=== PATIENT | male | born 1975 | race Caucasian/White ===

== ENCOUNTER 2019-07-31 20:51 | Emergency (ER) | payer SELFPAY ==
[2019-07-31 21:01] VITALS: BP 160/98; PULSE 84; RESP 16; TEMP 36.8; BMI 27.8
--- NOTE | 2019-07-31 21:17 | W.ED.NECK ---
HPI - Neck Pain/Injury General: Chief Complaint: Neck Pain/Injury Stated Complaint: neck pain Time Seen by Provider: 07/31/19 21:17 History of Present Illness: HPI Narrative: Patient is a 43-year-old male who comes to the ED with neck pain. Pain started today and increasingly got worse. He describes the pain predominantly on the left posterior side of neck and states it feels like it is muscular pain. Patient says he has had this happen in the past and it usually correlates to him overworking himself. 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 He states a couple days ago he was holding a piece of equipment up over his head for an extended amount of time. Patient denies any injury or trauma to cause symptoms. Denies any fever, chills, nausea, vomiting, chest pain, shortness of breath, neurological symptoms, abdominal pain, bladder or bowel symptoms. Associated symptoms: Denies headache(s) or nausea Review of Systems Const: Denies: fever, chills or fatigue Eyes: Denies: change in vision or eye discomfort ENMT: Denies: throat pain, painful swallowing, nasal discharge or nasal congestion Card: Denies: chest pain, palpitations, edema, swelling of feet/ankles, shortness of breath on exertion or shortness of breath when lying down Resp: Denies: shortness of breath, productive cough or non-productive cough GI: Denies: abdominal pain, nausea, vomiting, diarrhea, constipation or blood in stool : Denies: flank pain, difficulty urinating, painful urination or blood in urine Musc: Reports: neck pain, joint swelling (swelling in right hand) and limited range of motion (neck-hurts to turn head to the right. ); Denies: back pain or extremity swelling Skin/Breast: Denies: rash or new lesion Neuro: Denies: headache, numbness in extremities or weakness in extremities PFSH ED PFSH: Social History Smoking and tobacco status: current every day smoker Physical Exam Const: COMMON NORMALS: no apparent distress, oriented x3 and alert GENERAL APPEARANCE: cooperative; not in distress HENMT: COMMON NORMALS: normocephalic HEAD & SCALP: normocephalic MOUTH: oral and palatal mucosa normal THROAT: posterior oropharynx normal and uvula midline Eye: COMMON NORMALS: PERRL PUPIL: Yes PERRL Neck/C-Spine: COMMON NORMALS: supple GENERAL: Yes normal visual inspection and Yes tender (muscular tenderness on left posterior area of neck-evolving upper trapezius muscles and sternocleidomastoid) Resp: COMMON NORMALS: normal respiratory effort, no retractions, no use of accessory muscles and clear to auscultation bilaterally AUSCULTATION: clear to auscultation bilaterally Cardio: COMMON NORMALS: regular rate, regular rhythm, S1 normal heart sound, S2 normal heart sound, no gallops, no clicks, no murmurs and peripheral pulses 2+ throughout RATE: regular rate RHYTHM: regular rhythm HEART SOUNDS: S1 normal and S2 normal PERIPHERAL PULSES: pulses 2+ throughout GI: COMMON NORMALS: normal to inspection, nondistended, normoactive bowel sounds, soft to palpation, non-tender and no masses PALPATION: Yes soft : COMMON NORMALS: Yes no CVA tenderness BLADDER/KIDNEY EXAM: Yes no CVA tenderness Back/Pelvis: COMMON NORMALS: no CVA tenderness Extremity: COMMON NORMALS: no pedal edema GENERAL: Yes normal exam except as noted RIGHT UPPER EXTREMITY: Yes hand & digits Right hand and digits: Yes inspection (mild swelling of right hand. no erythema) Neuro: COMMON NORMALS: oriented x3 and moves all extremities SENSORIUM/ORIENTATION: Yes alert Skin: COMMON NORMALS: no rashes or lesions noted GENERAL SKIN EXAM: no rashes or lesions noted and dry skin Course Vital Signs: Vital signs: Vital Signs Temperature 98.3 F 07/31/19 21:01 Pulse Rate 76 07/31/19 22:39 Respiratory Rate 16 07/31/19 22:39 Blood Pressure 146/90 07/31/19 22:39 Pulse Oximetry 98 07/31/19 22:39 MDM - Neck Pain/Injury MDM Narrative: Medical decision making narrative: Patient is a 43-year-old male who comes to the ED with neck pain. Patient was recently working and had to hold some equipment over his head for an extended amount of time. Neck pain started after this. Physical exam showed muscular tenderness on the posterior left region of the cervical spine. Patient was given Toradol and Norflex while here in the ED. Patient was discharged with neck muscle strain and sent home with a prescription for muscle relaxer. Apply ice or heat to help with neck pain. Patient was told to follow-up with PCP in 7 days for reevaluation. Patient understood and agreed with plan. Discharge Plan Discharge Patient Disposition: Home, Self-Care Clinical Impression: Neck muscle strain Qualifiers: Encounter type: initial encounter Qualified Code(s): S16.1XXA - Strain of muscle, fascia and tendon at neck level, initial encounter Condition: Stable Prescriptions: New Robaxin-750 750 mg tablet 750 mg PO Q8H Qty: 20 RF: 0 No Action No Known Home Medications RF: 0 Discharge Orders: Discharge Order (Routine); Ordered 07/31/19 Ordered By: Vern Harrington Discharge Diet: Regular Discharge Activity: Increase activity as tolerated Patient Instructions: Cervical Sprain (ED), Neck Exercises (GEN) Activity Restrictions/Additional Instructions: Follow-up with your PCP in 7 to 10 days for reevaluation. Take Aleve or ibuprofen for pain and inflammation. Apply ice or heat on sore muscles to help with symptoms. Sending you home with a prescription for a muscle relaxer. Take muscle relaxer at night before bed. Muscle relaxer can cause some drowsiness so use with caution. Discharge Date/Time: 07/31/19 22:46 Coding Level of Care Code ED Dental Laboratory Supervisor for Keisha Fwd Exam Comprehensive
[2019-07-31] MEDS: ketorolac 30 mg/mL INJ IM (21:52)
[2019-07-31] MEDS: orphenadrine 30 mg/mL Inj 2 mL 60 MG IM (21:52)
[2019-07-31 22:39] VITALS: BP 146/90; PULSE 76; RESP 16; O2SAT 98
--- NOTE | 2019-07-31 22:45 | PC.NURSE ---
I agree with this assessment
== END 2019-07-31 22:46 | disposition home or self-care (01) ==
LOC: ER 22:23
PROVIDERS: Emergency Provider Physician Assistant
DX: S16.1XXA Strain of muscle, fascia and tendon at neck level, initial encounter (principal); X50.9XXA Other and unspecified overexertion or strenuous movements or postures, initial encounter; F17.210 Nicotine dependence, cigarettes, uncomplicated
CPT/HCPCS: 12345; 96372; 99281; 99283; J1885; J2360

== ENCOUNTER 2019-12-03 23:18 | Emergency (ER) | payer SELFPAY ==
[2019-12-03 23:22] VITALS: BP 126/76; PULSE 59; RESP 16; TEMP 36.5; O2SAT 97
--- NOTE | 2019-12-03 23:48 | ED_ITS ---
HPI - Extremity Problem General: Chief complaint: Extremity Injury, Upper Stated complaint: shoulder pain/ says they cant move it Time Seen by Provider: 12/03/19 23:48 Source: patient Mode of arrival: ambulatory Limitations: no limitations Review of Systems General: Reports: 10 or more systems reviewed and unremarkable except in HPI and below Musc: Reports: joint pain (left shoulder) PFSH ED PFSH: Social History Smoking and tobacco status: current every day smoker Physical Exam Const: COMMON NORMALS: no acute distress and patient oriented x3 GENERAL APPEARANCE: cooperative HENMT: COMMON NORMALS: normocephalic and Normal external nose present HEAD & SCALP: normal to inspection and normocephalic NOSE: Normal external nose present MOUTH: Normal oral and palatal mucosa present THROAT: posterior oropharynx normal Eye: GENERAL EYE: appearance normal, both eyes and all related structures Neck/C-Spine: COMMON NORMALS: full ROM Lymph: LYMPHATIC: no lymphadenopathy noted Chest: COMMONS NORMALS: normal inspection of the chest Resp: COMMON NORMALS: normal respiratory effort EFFORT & INSPECTION: Yes able to speak in complete sentences Cardio: COMMON NORMALS: regular rate and regular rhythm RATE: regular rate RHYTHM: regular rhythm GI: COMMON NORMALS: non-tender Back/Pelvis: COMMON NORMALS: thoracic and lumbar spine normal to inspection Extremity: NARRATIVE EXTREMITY EXAM: Left anterior shoulder tenderness to palpation. Decreased flexion extension of the shoulder. Distal pulses are intact. No obvious swelling to the extremity. Neuro: COMMON NORMALS: patient oriented x3 and moves all extremities Psych: COMMON NORMALS: mental status grossly normal and cooperative Skin: COMMON NORMALS: no rashes or lesions noted GENERAL SKIN EXAM: no rashes or lesions noted Procedures Joint Aspiration/Injection Joint Asp./Inject. 1: Side of body: left Joint Aspirated: shoulder Skin Prep: Chlorhexidine Local Anesthetic: lidocaine 1% Amount of anesthesia used (mL): 2 Needle Size Used: 22G Medication Injected, if any: Triamcinolone Acetate Amount of medication injected (mL): 40 Patient Tolerated Procedure: well Complications: none Course Vital Signs: Vital signs: Vital Signs Temperature 97.7 F 12/03/19 23:22 Pulse Rate 59 L 12/03/19 23:22 Respiratory Rate 16 12/03/19 23:22 Blood Pressure 126/76 12/03/19 23:22 Pulse Oximetry 97 12/03/19 23:22 MDM - Extremity (Nontraumatic) MDM Narrative: Medical decision making narrative: Patient comes in with left shoulder anterior tenderness. Patient reports pulling on something at work and straining hard with his left arm. Since then patient has had increased pain over the last 2 days to his anterior shoulder. Distal pulses are intact. Respirations are even lungs are clear to auscultation. Skin is warm and dry. Differential diagnosis includes but not limited to bursitis, shoulder impingement syndrome, biceps tendinitis. Reviewed exam with patient with recommendations for treatment with a 40 mg injection of Solu-Medrol and lidocaine into the biceps proximal insertion tendon. Recommend medication for pain and inflammation. Patient reported understanding and agreed to plan. Patient was given a injection into the biceps tendon with good results and some relief of pain. Discharge Plan Discharge Patient Disposition: Home Clinical Impression: Shoulder impingement syndrome Qualifiers: Laterality: left Qualified Code(s): M75.42 - Impingement syndrome of left shoulder Condition: Stable Prescriptions: New diclofenac potassium 50 mg tablet 50 mg PO Q8H PRN (Reason: pain) Qty: 30 RF: 0 hydrocodone-acetaminophen 5-325 mg tablet 1 tab PO TID PRN (Reason: pain (scale score 7-10)) Qty: 7 RF: 0 No Action Robaxin-750 750 mg tablet 750 mg PO Q8H Qty: 20 RF: 0 Discharge Orders: Discharge Order (Routine); Ordered 12/04/19 Ordered By: Ernesto Bledsoe Discharge Diet: Usual diet Discharge Activity: Increase activity as tolerated Patient Instructions: Shoulder Sprain (ED) Activity Restrictions/Additional Instructions: Activity as tolerated. Gentle range of motion. Ice alternating with heat for further pain relief. Drink plenty of water with medication. Follow-up with primary care for further treatment and evaluation. Coding Level of Care Code ED [employer] Power Plant Manager for Keisha Fwd Exam Comprehensive
[2019-12-04] MEDS: HYDROcodone-acetaminophen 7.5-325 mg Tablet 1 TAB PO (00:08)
[2019-12-04] MEDS: naproxen 500 mg Tablet PO (00:09)
[2019-12-04] MEDS: lidocaine 1% INJ 20 mL INJECTION (00:11)
[2019-12-04 00:19] VITALS: BP 140/79; PULSE 75; O2SAT 98
== END 2019-12-04 00:19 | disposition home or self-care (01) ==
PROVIDERS: Emergency Provider Nurse Practitioner Family
DX: M75.42 Impingement syndrome of left shoulder (principal); F17.210 Nicotine dependence, cigarettes, uncomplicated
CPT/HCPCS: 12345; 20610; 96372; 99281; 99283; J2920

== ENCOUNTER 2020-01-27 07:34 | Emergency (ER) | payer SELFPAY ==
[2020-01-27 07:41] VITALS: BP 142/101; PULSE 83; RESP 18; TEMP 36.5; O2SAT 97; BMI 25.1
[2020-01-27 07:45] VITALS: BP 142/101; PULSE 81; RESP 18; O2SAT 97
--- NOTE | 2020-01-27 07:51 | XR_ITS ---
WS: [id number] Exam: XR knee RT 3V* [id number] Date/Time of Exam: 01/27/2020 8:05 AM Reason For Exam: right knee pain - 1 with standing view please Comparison 05/09/2018. No fracture or dislocation. Joint compartments are relatively well maintained. No joint effusion. Nor mal soft tissues. XR/XR knee RT 3V* [id number] IMPRESSION: 1. No acute fracture or other significant finding. No change.
--- NOTE | 2020-01-27 07:54 | ED_ITS ---
HPI - Extremity Problem General: Chief complaint: Extremity Injury, Lower Stated complaint: right knee pain Time Seen by Provider: 01/27/20 07:51 History of Present Illness: HPI Narrative: 44-year-old male presents to the emergency department with 4-day onset of right knee pain. Reports onset occurred at work, he denies injury or fall. 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 Reports pain was 13/10 on Friday. States pain has improved today. He reports pain is located on the medial side of the knee. He reports swelling, denies fever chills or redness to the area. Patient requests joint injection for the pain. MD Complaint: joint swelling (rt) and joint pain (rt) Onset (ago): day(s) (4) Pain Consistency: intermittent Location: right, lower extremity and knee Severity scale (1-10): 4 Quality: stabbing and aching Radiation: none Relieving factors: rest Exacerbating factors: weight bearing and walking Associated symptoms: Reports no associated symptoms; Deny chest pain, fever(s) or rash Review of Systems General: Reports: 10 or more systems reviewed and unremarkable except in HPI and below Const: Denies: fever(s), chills or diaphoresis Eyes: Denies: blurry vision or eye redness ENMT: Denies: throat pain, dental pain or disequilibrium Card: Denies: chest pain, palpitations or irregular heart rhythm Resp: Denies: dyspnea, productive cough, non-productive cough or wheezing GI: Denies: abdominal pain, nausea or vomiting : Denies: dysuria Musc: Reports: joint pain (right knee); Denies: neck pain or back pain Skin/Breast: Denies: rash or pruritus Neuro: Denies: headache(s), weakness in extremities or behavioral changes Psych: Denies: anxiety or depression Steven/Lymph: Denies: easy bruising PFSH ED PFSH: Social History (Updated 01/27/20 @ 07:47 by Gurpreet Cowart RN) Smoking and tobacco status: current every day smoker Alcohol intake: never Substance/Drug Use: current Substance/Drug use frequency: Special occassions/opportunity only Substance/Drug use type: Marijuana Physical Exam Const: COMMON NORMALS: no acute distress, patient oriented x3, healthy appearing and alert GENERAL APPEARANCE: cooperative, comfortable and well hydrated HENMT: COMMON NORMALS: normocephalic, Normal external nose present and moist oral mucous membranes HEAD & SCALP: normocephalic NOSE: Normal external nose present Eye: COMMON NORMALS: Equal, round and reactive pupils present and EOMs intact bilaterally GENERAL EYE: appearance normal, both eyes and all related structures PUPIL: Yes Equal, round and reactive pupils present Neck/C-Spine: COMMON NORMALS: full ROM and no lymphadenopathy GENERAL: Yes normal visual inspection and Yes trachea midline CERVICAL SPINE: Yes cervical ROM normal Lymph: LYMPHATIC: no lymphadenopathy noted Chest: COMMONS NORMALS: normal inspection of the chest Resp: COMMON NORMALS: normal respiratory effort and clear to auscultation bilaterally AUSCULTATION: clear to auscultation bilaterally Cardio: COMMON NORMALS: regular rhythm, S1 normal heart sound present, S2 normal heart sound present and Peripheral pulses 2+ throughout RHYTHM: regular rhythm HEART SOUNDS: S1 normal heart sound present and S2 normal heart sound present PERIPHERAL PULSES: Peripheral pulses 2+ throughout GI: COMMON NORMALS: Soft to palpation and non-tender INSPECTION: Yes normal to inspection PALPATION: Yes Soft to palpation : COMMON NORMALS: Yes no CVA tenderness BLADDER/KIDNEY EXAM: Yes no CVA tenderness Back/Pelvis: COMMON NORMALS: no CVA tenderness and thoracic and lumbar spine normal to inspection Extremity: COMMON NORMALS: normal to inspection and capillary refill normal GENERAL: Yes normal exam except as noted RIGHT LOWER EXTREMITY: Yes knee joint Right knee: Yes inspection (right knee with edema), Yes palpation (pain medially), Yes ROM (full flexion and extension), Yes neurovascular exam (distally intact) and Yes special tests Right knee special tests: Patellar tilt test: Negative, Anterior Carlos test: Negative, Posterior Carlos test: Negative, Valgus stress test: Positive and Varus stress test: Negative Neuro: COMMON NORMALS: patient oriented x3 and no focal motor deficits SENSORIUM/ORIENTATION: Yes alert Psych: COMMON NORMALS: mental status grossly normal, Normal thought process present and cooperative ACTIVITY/MOTOR BEHAVIOR: Yes appropriate eye contact THOUGHT PROCESS: Normal thought process present Skin: COMMON NORMALS: no rashes or lesions noted and turgor normal GENERAL SKIN EXAM: no rashes or lesions noted and turgor normal Course Vital Signs: Vital signs: Vital Signs Temperature 98.7 F 01/27/20 08:51 Pulse Rate 80 01/27/20 08:51 Respiratory Rate 16 01/27/20 08:51 Blood Pressure 137/82 01/27/20 08:51 Pulse Oximetry 96 01/27/20 08:51 MDM - Extremity (Nontraumatic) Imaging Data^: Xray Ortho: Radiologist's impression: [address] [place] [address] XRay Report Signed Patient: Jackson Lea Unit #: [id number] : [id number] Age/Sex: 44 / M ADM Date: 01/27/20 Loc: ER Room/Bed: Attending Dr: Ordering Provider/Ordering MD: Isabella Serrano Date of Service: 01/27/20 Procedure(s): XR knee RT 3V* [id number] Accession Number(s): [id number] Report Number: [id number] WS: [id number] Exam: XR knee RT 3V* [id number] Date/Time of Exam: 01/27/2020 8:05 AM Reason For Exam: right knee pain - 1 with standing view please Comparison 05/09/2018. No fracture or dislocation. Joint compartments are relatively well maintained. No joint effusion. Normal soft tissues. XR/XR knee RT 3V* [id number] IMPRESSION: 1. No acute fracture or other significant finding. No change. Dictated By: Kunal Veliz DO Signed By: Kunal Veliz DO Signed Date/Time: 01/27/20905 DD/ 4 Discharge Plan Discharge Patient Disposition: Home Clinical Impression: Knee pain, right Qualifiers: Chronicity: acute Qualified Code(s): M25.561 - Pain in right knee Meniscus degeneration Qualifiers: Laterality: right Qualified Code(s): M23.306 - Other meniscus derangements, unspecified meniscus, right knee Condition: Stable Prescriptions: New naproxen 500 mg tablet 500 mg PO BID PRN (Reason: pain) Qty: 20 RF: 0 Discharge Orders: Discharge Order (Routine); Ordered 01/27/20 Ordered By: Isabella Serrano Discharge Diet: Usual diet Discharge Activity: Limit activity as instructed Patient Instructions: Knee Pain (ED), Knee Exercises (GEN), Torn Meniscus Activity Restrictions/Additional Instructions: information services assistant will be contacting you with an appointment with orthopedic specialty for possible right knee injection as requested. Return to the emergency department if you develop increased leg pain, difficulty standing, redness of the knee or lower leg Do not take [id number] medication such as ibuprofen, Advil, Aleve as duplication of therapy can occur with use of naproxen May apply [id number] Salonpas as needed for pain, use as directed. Discharge Date/Time: 01/27/20 09:00 Coding Level of Care Code ED Lead Sql Developer for Keisha Blackburn Exam Comprehensive
[2020-01-27 08:51] VITALS: BP 137/82; PULSE 80; RESP 16; TEMP 37.1; O2SAT 96
--- NOTE | 2020-01-27 14:08 | DCPLANNER ---
Addendum entered by Nanda Greene 01/27/20 14:49: Pat from ortho called telephonic case manager stating that patient would need to follow up with primary care. manager of compliance called patient, and informed him that he would need to follow up a primary care physician. Patient stated that he did not have a primary care physician, patient also stated that he does not have insurance. manager of compliance will mail patient both of the financial supervisor applications for the hospital to fill out and turn in. Patient stated that he would call telephonic case manager when he hears if he qualifies for the financial supervisor or not, to schedule a follow up appointment. Original Note: manager of compliance had message to schedule a follow up appointment for patient with ortho. manager of compliance called the ortho clinic, spoke with Mary, gave clinic patients information. manager of compliance was told that patients information would be printed and reviewed. Clinic will call patient with appointment information.
== END 2020-01-27 09:00 | disposition home or self-care (01) ==
PROVIDERS: Emergency Provider Nurse Practitioner Family
DX: M23.306 Other meniscus derangements, unspecified meniscus, right knee (principal); F17.210 Nicotine dependence, cigarettes, uncomplicated
CPT/HCPCS: 12345; 73562; 99281; 99282

== ENCOUNTER 2020-03-16 07:21 | Emergency (ER) | payer SELFPAY ==
[2020-03-16 07:28] VITALS: BP 135/78; PULSE 76; RESP 18; TEMP 36.3; O2SAT 95; BMI 25.1
--- NOTE | 2020-03-16 07:41 | W.ED.EXTPRO ---
HPI - Extremity Problem General: Chief complaint: Extremity Problem,Nontraumatic Stated complaint: R HAND PAIN Time Seen by Provider: 03/16/20 07:23 History of Present Illness: HPI Narrative: Patient is a 44-year-old male comes to the ED with right hand pain. Patient says he has had this before in they have told him he has osteoarthritis in his hands and he was given a steroid and it helped with symptoms. Patient says yesterday he had some pain and some swelling in his hand but continued to work throughout the day yesterday. He woke up today and his right hand was more swollen and stiff and painful throughout the joints of his hand. He has been taking naproxen at home. Denies any injury or trauma to right hand. Patient says he works in a [employer] and its a very physically demanding job. He says he uses his hands all day and knees lifting and carrying heavy boards. Associated symptoms: Deny chest pain, fever(s) or rash Review of Systems Const: Denies: fever(s), chills or fatigue Eyes: Denies: change in vision or eye discomfort ENMT: Denies: throat pain, odynophagia, nasal discharge or nasal congestion Card: Denies: chest pain, palpitations, edema, swelling of feet/ankles, dyspnea on exertion or orthopnea Resp: Denies: dyspnea, productive cough or non-productive cough GI: Denies: abdominal pain, nausea, vomiting, diarrhea, constipation or hematochezia : Denies: flank pain, difficulty urinating, dysuria or hematuria Musc: Reports: extremity pain (Right hand) and extremity swelling (Right hand); Denies: neck pain or back pain Skin/Breast: Denies: rash or new lesions Neuro: Denies: headache(s), numbness in extremities or weakness in extremities PFS ED PFSH: Social History Smoking and tobacco status: current every day smoker Alcohol intake: never Physical Exam Const: COMMON NORMALS: no acute distress, patient oriented x3, healthy appearing and alert GENERAL APPEARANCE: cooperative and comfortable HENMT: COMMON NORMALS: normocephalic HEAD & SCALP: normocephalic MOUTH: Normal oral and palatal mucosa present THROAT: posterior oropharynx normal and uvula midline Eye: COMMON NORMALS: Equal, round and reactive pupils present PUPIL: Yes Equal, round and reactive pupils present Neck/C-Spine: COMMON NORMALS: supple GENERAL: Yes normal visual inspection Resp: COMMON NORMALS: normal respiratory effort, No retractions, No use of accessory muscles and clear to auscultation bilaterally AUSCULTATION: clear to auscultation bilaterally Cardio: COMMON NORMALS: regular rate, regular rhythm, S1 normal heart sound present, S2 normal heart sound present, No gallops present (Cardio), No clicks present (Cardio), No murmurs present (Cardio) and Peripheral pulses 2+ throughout RATE: regular rate RHYTHM: regular rhythm HEART SOUNDS: S1 normal heart sound present and S2 normal heart sound present PERIPHERAL PULSES: Peripheral pulses 2+ throughout GI: COMMON NORMALS: Normal to inspection, nondistended, normoactive bowel sounds present, Soft to palpation, non-tender and no masses PALPATION: Yes Soft to palpation : COMMON NORMALS: Yes no CVA tenderness BLADDER/KIDNEY EXAM: Yes no CVA tenderness Back/Pelvis: COMMON NORMALS: no CVA tenderness Extremity: GENERAL: Yes normal exam except as noted RIGHT UPPER EXTREMITY: Yes hand & digits Right hand and digits: Yes inspection (Right hand is swollen, no erythema or warmth. No visible deformity), Yes palpation (Nontender), Yes ROM exam (Limited due to stiffness and pain in joints.) and Yes neurovascular exam (Intact) Neuro: COMMON NORMALS: patient oriented x3 and moves all extremities SENSORIUM/ORIENTATION: Yes alert Skin: GENERAL SKIN EXAM: dry skin Course Vital Signs: Vital signs: Vital Signs Temperature 97.3 F L 03/16/20 07:28 Pulse Rate 76 03/16/20 07:28 Respiratory Rate 18 03/16/20 07:28 Blood Pressure 135/78 03/16/20 07:28 Pulse Oximetry 95 03/16/20 07:28 MDM - Extremity (Nontraumatic) MDM Narrative: Medical decision making narrative: Patient is a 44-year-old male comes to the ED with nontraumatic right hand pain and swelling. Patient has a history of osteoarthritis in his hands and has been treated in the past for this. Patient has a very physically demanding job where he is lifting and using his hands all throughout the day. Exam shows a swollen right hand with no erythema, warmth or visible deformity. Range of motion limited due to's pain and stiffness in joints. Patient was given a dose of IM Solu-Medrol and sent home on a prescription of Medrol dose pack. He was told to apply heat or ice on right hand to help with symptoms. also instructed to rest and limit use of hand today. Return to ED precautions given. Follow-up with PCP in 7 to 10 days for reevaluation. Patient understood agree with plan. Discharge Plan Discharge Patient Disposition: Home Clinical Impression: Osteoarthritis of hand, right Qualifiers: Osteoarthritis type: primary Qualified Code(s): M19.041 - Primary osteoarthritis, right hand Condition: Stable Prescriptions: New Medrol (Narinder) 4 mg tablets,dose pack See Rx Instructions .ROUTE .COMPLEX Qty: 21 RF: 0 No Action naproxen 500 mg tablet 500 mg PO BID PRN (Reason: pain) Qty: 20 RF: 0 Discharge Orders: Discharge ED (Routine); Ordered 03/16/20 Ordered By: Vern Harrington Discharge Diet: Regular Discharge Activity: Increase activity as tolerated Patient Instructions: Osteoarthritis (ED) Activity Restrictions/Additional Instructions: Follow-up with medical provider as directed in 7 to 10 days for reevaluation. Take medications as prescribed. Rest hand today and increase activity as tolerated. Apply ice or heat on hand to help with symptoms. Return to the ER or your medical provider if condition worsens. Please read and understand discharge instructions. If any questions, please ask. Coding Level of Care Code ED Maintenance Mechanic 2Nd Shift for Keisha Blackburn
[2020-03-16 08:01] VITALS: BP 122/68; PULSE 66; RESP 18; O2SAT 96
== END 2020-03-16 08:03 | disposition home or self-care (01) ==
PROVIDERS: Emergency Provider Physician Assistant
DX: M19.041 Primary osteoarthritis, right hand (principal); F17.210 Nicotine dependence, cigarettes, uncomplicated
CPT/HCPCS: 12345; 96372; 99281; 99283; J2930

== ENCOUNTER 2020-04-18 19:16 | Emergency (ER) | payer SELFPAY ==
[2020-04-18] VITALS (7 sets, daily range): BP systolic 116–169; BP diastolic 78–92; PULSE 55–72; RESP 16–18; TEMP 36.8; O2SAT 97–98; BMI 25.1
--- NOTE | 2020-04-18 19:50 | CTR_ITS ---
PROCEDURE INFORMATION: Exam: CT Abdomen And Pelvis Without Contrast Exam date and time: 04/18/2020 8:01 PM Age: 44 years old Clinical indication: Abdominal pain; Prior surgery; Surgery type: Hernia; Additional info: Kidney stone TECHNIQUE: Imaging protocol: Computed tomography of the abdomen and pelvis without contrast. Sagittal and coronal reformatted images were created and reviewed. Radiation optimization: All CT scans at this facility use at least one of these dose optimization techniques: automated exposure control; mA and/or kV adjustment per patient size (includes targeted exams where dose is matched to clinical indication); or iterative reconstruction. COMPARISON: No relevant prior studies available. RADIATION DOSE METRICS: Total DLP (mGy-cm): 985.87 FINDINGS: Limitations: Evaluation of solid organs and vasculature is limited without intravenous contrast. This is standard protocol for evaluation of possible urolithiasis. Lungs: Visualized lungs are clear. Pleural space: No pleural effusion. Heart: Visualized portions of the heart are unremarkable. Liver: The liver is unremarkable. Gallbladder and bile ducts: The gallbladder is unremarkable. No biliary ductal dilatation. Pancreas: The pancreas is unremarkable. No pancreatic ductal dilatation. Spleen: The spleen is unremarkable. Adrenal glands: The right and left adrenal glands are unremarkable. Kidneys and ureters: Nonobstructing stones in both right and left kidneys. Single stone in the right kidney measures 2.3 mm (series 2, image 59). Two stones in the left kidney, the larger measures 2.6 mm (series 2, image 59). The right and left ureters are unremarkable. No hydroureteronephrosis. Stomach and bowel: No obstruction. No mucosal thickening. Appendix: The right and left testes are unremarkable as visualizedThe appendix is visualized and is unremarkable. No findings to suggest acute appendicitis. Intraperitoneal space: No free intraperitoneal air. No ascites. No loculated fluid collections to suggest an abscess. Vasculature: No evidence for aortic aneurysm. Lymph nodes: No lymphadenopathy. Urinary bladder: The bladder is incompletely filled, which can limit evaluation. No focal abnormality in the bladder however. Reproductive: Nonspecific parenchymal calcifications in the prostate gland. Bones/joints: Mild degenerative changes at both the right and left hips. Mild degenerative changes in the visualized spine. Soft tissues: The extra-abdominal soft tissues are unremarkable. CT/CT kidney stone [id number] IMPRESSION: 1. No acute abnormality in the abdomen or pelvis. 2. Bilateral nonobstructing renal stones. 3. Incidental/nonacute findings are listed in the report. Radiation Dose CTDIVOL = (mGy): DLP = 985.87 (mGy-cm)
--- NOTE | 2020-04-18 20:10 | PC.NURSE ---
patient to ct
[2020-04-18 20:18] LABS: Basophils # 0.1 10^3/uL (0.0-0.1); Basophils % 0.5 %; Eosinophils # 0.6 10^3/uL (0.0-0.8); Eosinophils % 6.7 %; Hematocrit 45.2 % (42.0-52.0); Hemoglobin 14.4 g/dL (11.7-16.6); Lymphocytes # 3.6 10^3/uL (0.8-4.8); Lymphocytes % 37.5 %; Mean Corpuscular HGB Conc 31.9 g/dL (30.0-36.0); Mean Corpuscular Hemoglobin 27.9 pg (28.0-34.0); Mean Corpuscular Volume 87.6 fL (80-94); Mean Platelet Volume 11.1 fL (7.4-10.4); Monocytes # 0.7 10^3/uL (0.2-0.9); Monocytes % 7.5 %; Neutrophils # 4.56 10^3/uL (1.8-7.7); Neutrophils % 47.6 %; Nucleated Red Blood Cells % 0 %; Platelet Count 281 10^3/cmm (130-400); Red Blood Count 5.16 10^6/uL (4.1-5.3); Red Cell Distribution Width 13.8 % (12.1-15.1); White Blood Count 9.6 10^3/uL (4.0-10.0)
[2020-04-18 20:19] LABS: Add Urine Microscopic? NO
--- NOTE | 2020-04-18 20:25 | W.ED.ABDPA2 ---
HPI - Abdominal Pain General: Chief Complaint: Abdominal Pain Stated Complaint: lower back back pain/suspects kidney stone Time Seen by Provider: 04/18/20 19:53 Source: patient Mode of arrival: ambulatory Limitations: no limitations History of Present Illness: HPI narrative: 44-year-old male who states that yesterday morning had a severe sharp pain in his right lower back that radiates to his right testicle. He states that today it improved but started having some more pain this evening. He states pain today is not near as bad as a 5 out of 10. States it does radiate to his right testicle. He denies any actual testicle pain. He denies any worsening improving factors. He had no nausea vomiting or fever. Denies any worsening or improving factors. MD elicited complaint: flank pain Onset (ago): day(s) Associated Symptoms: Denies chills, diarrhea, dysuria, fever(s), nausea and vomiting Review of Systems Const: Denies: fever(s), chills, body aches or change in appetite Eyes: Denies: blurry vision or eye discomfort ENMT: Denies: throat pain or dental pain Card: Denies: chest pain Resp: Denies: dyspnea GI: Denies: abdominal pain, nausea, vomiting or diarrhea : Denies: dysuria Musc: Reports: back pain; Denies: neck pain Skin/Breast: Denies: rash Neuro: Denies: headache(s) Psych: Denies: depression Steven/Lymph: Denies: easy bruising All/Imm: Denies: urticaria PFSH ED PFSH: Social History Smoking and tobacco status: current every day smoker Alcohol intake: never Physical Exam Const: COMMON NORMALS: no acute distress, patient oriented x3 and healthy appearing HENMT: COMMON NORMALS: normocephalic and atraumatic HEAD & SCALP: normocephalic and atraumatic Eye: COMMON NORMALS: Equal, round and reactive pupils present and EOMs intact bilaterally PUPIL: Yes Equal, round and reactive pupils present Neck/C-Spine: COMMON NORMALS: full ROM and supple Chest: COMMONS NORMALS: normal inspection of the chest and normal palpation of entire chest wall Resp: COMMON NORMALS: normal respiratory effort, No retractions, No use of accessory muscles and clear to auscultation bilaterally AUSCULTATION: clear to auscultation bilaterally Cardio: COMMON NORMALS: regular rate, regular rhythm and No murmurs present (Cardio) RATE: regular rate RHYTHM: regular rhythm GI: COMMON NORMALS: Normal to inspection, nondistended, normoactive bowel sounds present, Soft to palpation, non-tender and no masses PALPATION: Yes Soft to palpation Back/Pelvis: OTHER: no lumbar or cva tenderness Extremity: COMMON NORMALS: normal to inspection and full ROM Neuro: COMMON NORMALS: patient oriented x3, moves all extremities and no focal motor deficits Psych: COMMON NORMALS: mental status grossly normal, Normal thought process present and cooperative THOUGHT PROCESS: Normal thought process present Skin: COMMON NORMALS: no rashes or lesions noted and no wounds GENERAL SKIN EXAM: no rashes or lesions noted Course Vital Signs: Vital signs: Vital Signs Temperature 98.2 F 04/18/20 19:42 Pulse Rate 69 04/18/20 20:30 Respiratory Rate 16 04/18/20 21:10 Blood Pressure 169/88 04/18/20 21:10 Pulse Oximetry 98 04/18/20 21:10 MDM - Abdominal Pain MDM Narrative: Medical decision making narrative: Patient presents here with flank pain and likely passed a kidney stone yesterday with his history. CT scan shows no acute finding and his blood work is all normal. He feels much improved here. Will prescribe him [place] and Zofran he is to follow-up his PCP in 2 to 4 days return if worsening. He understands agrees to plan. Lab Data: Labs: Lab Results 04/18/20 04/18/20 04/18/20 Range/Units 20:01 20:01 20:01 WBC 9.6 (4.0-10.0) 10^3/ uL RBC 5.16 (4.1-5.3) 10^6/u L Hgb 14.4 (11.7-16.6) g/dL Hct 45.2 (42.0-52.0) % MCV 87.6 (80-94) fL MCH 27.9 L (28.0-34.0) pg MCHC 31.9 (30.0-36.0) g/dL RDW 13.8 (12.1-15.1) % Plt Count 281 (130-400) 10^3/c mm MPV 11.1 H (7.4-10.4) fL Neut % (Auto) 47.6 % Lymph % (Auto) 37.5 % [place] % (Auto) 7.5 % Eos % (Auto) 6.7 % Baso % (Auto) 0.5 % Neut # (Auto) 4.56 (1.8-7.7) 10^3/u L Lymph # (Auto) 3.6 (0.8-4.8) 10^3/u L [place] # (Auto) 0.7 (0.2-0.9) 10^3/u L Eos # (Auto) 0.6 (0.0-0.8) 10^3/u L Baso # (Auto) 0.1 (0.0-0.1) 10^3/u L Nucleated RBC % (a uto) 0 % Nucleated RBCs # 0.0 /100WBC Sodium 140 (136-145) mmol/L Potassium 4.1 (3.5-5.1) mmol/L Chloride 103 (98-107) mmol/L Carbon Dioxide 29 (22-29) mmol/L Anion Gap 12.1 (5-19) BUN 16 (6-20) mg/dL Creatinine 0.9 (0.7-1.2) mg/dL GFR Calculation 91.3 (90-130) mL/min Glucose 131 H (65-115) mg/dL Calculated Osmolal ity 293 (285-295) mOsm/k g Calcium 9.2 (8.5-10.5) mg/dL Urine Color Yellow (Yellow) Urine Appearance Clear (CLEAR) Urine pH 8.0 H (5-7) Ur Specific Gravit y 1.010 (1.005-1.030) Urine Protein Neg (Negative) Urine Glucose (UA) Norm (Normal) Urine Ketones Negative (Negative) Urine Blood Neg (Negative) Urine Nitrate Negative (Negative) Urine Bilirubin Neg (Negative) Urine Urobilinogen Norm (Negative) mg/dL Ur Leukocyte [place] ase Negative (Negative) Imaging Data ^: CT Abd/Pel: Attestation: I personally reviewed and interpreted this imaging study as follows: Radiologist's impression: [address] [place] [id number] Scan Report Signed Patient: Jackson Lea Unit #: [id number] : 1975 [id number] Age/Sex: 44 / M ADM Date: 04/18/20 Loc: ER Room/Bed: Attending Dr: Ordering Provider/Ordering MD: Nilesh Gaitan MD Date of Service: 04/18/20 Procedure(s): CT kidney stone [id number] Accession Number(s): [id number] Report Number: [id number] PROCEDURE INFORMATION: Exam: CT Abdomen And Pelvis Without Contrast Exam date and time: 04/18/2020 8:01 PM Age: 44 years old Clinical indication: Abdominal pain; Prior surgery; Surgery type: Hernia; Additional info: Kidney stone TECHNIQUE: Imaging protocol: Computed tomography of the abdomen and pelvis without contrast. Sagittal and coronal reformatted images were created and reviewed. Radiation optimization: All CT scans at this facility use at least one of these dose optimization techniques: automated exposure control; mA and/or kV adjustment per patient size (includes targeted exams where dose is matched to clinical indication); or iterative reconstruction. COMPARISON: No relevant prior studies available. RADIATION DOSE METRICS: Total DLP (mGy-cm): 985.87 FINDINGS: Limitations: Evaluation of solid organs and vasculature is limited without intravenous contrast. This is standard protocol for evaluation of possible urolithiasis. Lungs: Visualized lungs are clear. Pleural space: No pleural effusion. Heart: Visualized portions of the heart are unremarkable. Liver: The liver is unremarkable. Gallbladder and bile ducts: The gallbladder is unremarkable. No biliary ductal dilatation. Pancreas: The pancreas is unremarkable. No pancreatic ductal dilatation. Spleen: The spleen is unremarkable. Adrenal glands: The right and left adrenal glands are unremarkable. Kidneys and ureters: Nonobstructing stones in both right and left kidneys. Single stone in the right kidney measures 2.3 mm (series 2, image 59). Two stones in the left kidney, the larger measures 2.6 mm (series 2, image 59). The right and left ureters are unremarkable. No hydroureteronephrosis. Stomach and bowel: No obstruction. No mucosal thickening. Appendix: The right and left testes are unremarkable as visualizedThe appendix is visualized and is unremarkable. No findings to suggest acute appendicitis. Intraperitoneal space: No free intraperitoneal air. No ascites. No loculated fluid collections to suggest an abscess. Vasculature: No evidence for aortic aneurysm. Lymph nodes: No lymphadenopathy. Urinary bladder: The bladder is incompletely filled, which can limit evaluation. No focal abnormality in the bladder however. Reproductive: Nonspecific parenchymal calcifications in the prostate gland. Bones/joints: Mild degenerative changes at both the right and left hips. Mild degenerative changes in the visualized spine. Soft tissues: The extra-abdominal soft tissues are unremarkable. CT/CT kidney stone [id number] IMPRESSION: 1. No acute abnormality in the abdomen or pelvis. 2. Bilateral nonobstructing renal stones. 3. Incidental/nonacute findings are listed in the report. Radiation Dose CTDIVOL = (mGy): DLP = 985.87 (mGy-cm) Dictated By: Marly Stewart MD Signed By: Marly Stewart MD Signed Date/Time: 04/18/202048 DD/ 47 Discharge Plan Discharge Patient Disposition: Home Clinical Impression: Acute right flank pain Condition: Stable Prescriptions: New [place] 5-325 mg tablet 1 tab PO Q6H PRN (Reason: pain) Qty: 14 RF: 0 ondansetron 4 mg tablet,disintegrating 4 mg PO Q6H PRN (Reason: nausea and vomiting) Qty: 14 RF: 0 No Action Medrol (Narinder) 4 mg tablets,dose pack See Rx Instructions .ROUTE .COMPLEX Qty: 21 RF: 0 naproxen 500 mg tablet 500 mg PO BID PRN (Reason: pain) Qty: 20 RF: 0 Discharge Orders: Discharge ED (Routine); Ordered 04/18/20 Ordered By: Nilesh Gaitan Discharge Diet: Advance as tolerated Discharge Activity: Resume usual activity Patient Instructions: Abdominal Pain (ED) Stand Alone Forms: Work/School Release Coding Level of Care Code ED Supervisor Maintenance And Custodians for Chg Fwd Exam Comprehensive
[2020-04-18] MEDS: morphine 4 mg/mL SDV 1 mL IVP (20:27)
[2020-04-18] MEDS: ondansetron 2 mg/ML SDV 2 mL 4 MG IVP (20:27)
[2020-04-18 20:30] LABS: Bilirubin Urine Neg (Negative); Blood Urine Neg (Negative); Glucose Urine UA Norm (Normal); Ketones Urine Negative (Negative); Leukocyte Esterase Urine Negative (Negative); Nitrate Urine Negative (Negative); Protein Urine Neg (Negative); Urine Appearance Clear (CLEAR); Urine Color Yellow (Yellow); Urobilinogen Urine Norm (Negative)
[2020-04-18 20:37] LABS: Anion Gap 12.1 (5-19); Blood Urea Nitrogen 16 mg/dL (6-20); Calcium 9.2 mg/dL (8.5-10.5); Carbon Dioxide 29 mmol/L (22-29); Chloride 103 mmol/L (98-107); Glomerular Filtration Rate 91.3 mL/min (90-130); Glucose 131 mg/dL (65-115); Osmolality Calculated 293 mOsm/kg (285-295); Potassium 4.1 mmol/L (3.5-5.1); Sodium 140 mmol/L (136-145)
[2020-04-18 22:14] LABS: Lipase 54 U/L (13-60)
== END 2020-04-18 22:24 | disposition home or self-care (01) ==
PROVIDERS: Emergency Provider Emergency Medicine
DX: R10.9 Unspecified abdominal pain (principal); F17.210 Nicotine dependence, cigarettes, uncomplicated
CPT/HCPCS: 12345; 74176; 80048; 81003; 83690; 85025; 96374; 96375; 99283; J2270; J2405

== ENCOUNTER 2020-04-23 05:36 | Emergency (ER) | payer SELFPAY ==
[2020-04-23 05:50] VITALS: BP 167/93; PULSE 81; RESP 20; TEMP 36.6; O2SAT 99; BMI 25.1
--- NOTE | 2020-04-23 06:13 | CTR_ITS ---
PROCEDURE INFORMATION: Exam: CT Abdomen And Pelvis Without Contrast Exam date and time: 04/23/2020 6:30 AM Age: 44 years old Clinical indication: Abdominal pain; Flank; Right; Prior surgery; Surgery type: Hernia; Additional info: Right flank pain TECHNIQUE: Imaging protocol: Computed tomography of the abdomen and pelvis without contrast. Radiation optimization: All CT scans at this facility use at least one of these dose optimization techniques: automated exposure control; mA and/or kV adjustment per patient size (includes targeted exams where dose is matched to clinical indication); or iterative reconstruction. COMPARISON: CT kidney stone [id number] 04/18/2020 8:07 PM RADIATION DOSE METRICS: Total DLP (mGy-cm): 882.15 FINDINGS: Liver: No mass. Gallbladder and bile ducts: No calcified stones. No ductal dilation. Pancreas: No ductal dilation. Spleen: No splenomegaly. Adrenal glands: Normal. No mass. Kidneys and ureters: Bilateral nonobstructing renal calculi measuring up to 3-4 mm. No hydronephrosis. No obstructing ureteral stone. Stomach and bowel: No obstruction. No mucosal thickening. Appendix: No evidence of appendicitis. Intraperitoneal space: No free air. No significant fluid collection. Vasculature: No abdominal aortic aneurysm. Lymph nodes: No enlarged lymph nodes. Urinary bladder: Unremarkable as visualized. Reproductive: Unremarkable as visualized. Bones/joints: Unremarkable. No acute fracture. Soft tissues: Unremarkable. CT/CT kidney stone [id number] IMPRESSION: Bilateral nonobstructing renal calculi measuring up to 3-4 mm. No hydronephrosis. No obstructing ureteral stone. Radiation Dose CTDIVOL = (mGy): DLP = 882.15 (mGy-cm)
--- NOTE | 2020-04-23 06:19 | ED_ITS ---
HPI - Back Pain/Injury General: Chief Complaint: Back Pain/Injury Stated Complaint: lower back pain,going into abdomen and testicle Time Seen by Provider: 04/23/20 06:08 Source: patient Limitations: other (Patient presents the emergency department with complaint of right flank pain that radiates into the right groin and testicle. Was seen here on Friday for similar problems.) History of Present Illness: MD elicited complaint: back pain Onset (ago): day(s) Location: right flank Radiation: groin Associated symptoms: Deny fever(s) or vomiting Review of Systems Const: Denies: fever(s) Card: Denies: chest pain Resp: Denies: dyspnea GI: Denies: vomiting : Reports: flank pain; Denies: difficulty urinating Musc: Reports: back pain; Denies: neck pain Neuro: Denies: headache(s) Psych: Denies: anxiety Endo: Denies: polyuria PFSH ED PFSH: Social History Smoking and tobacco status: current every day smoker Alcohol intake: never Physical Exam Const: COMMON NORMALS: patient oriented x3 EXAM LIMITATIONS: no altered mental status GENERAL APPEARANCE: cooperative HENMT: COMMON NORMALS: normocephalic, atraumatic, hearing grossly normal bilaterally, external ears normal, EAC's normal, TM's normal bilaterally, Normal external nose present, Normal nasal mucous membranes and turbinates present, moist oral mucous membranes, oropharynx normal, dentition normal and gingiva normal HEAD & SCALP: normocephalic and atraumatic NOSE: Normal external nose present and Normal nasal mucous membranes and turbinates present EXTERNAL EAR: Yes external ears normal EXTERNAL AUDITORY CANAL: EAC's normal TYMPANIC MEMBRANE: TM's normal bilaterally Neck/C-Spine: COMMON NORMALS: no JVD Chest: COMMONS NORMALS: normal inspection of the chest, normal palpation of entire chest wall, normal inspection of the breasts and normal palpation of the breasts Breast/axilla inspection: Yes normal inspection of the breasts BREAST/AXILLA PALPATION: Yes normal palpation of the breasts Resp: COMMON NORMALS: normal respiratory effort, No retractions, No use of accessory muscles, clear to auscultation bilaterally and percussion normal AUSCULTATION: clear to auscultation bilaterally PERCUSSION: percussion normal Cardio: COMMON NORMALS: no JVD, regular rate, regular rhythm, S1 normal heart sound present, S2 normal heart sound present, No gallops present (Cardio), No clicks present (Cardio), No murmurs present (Cardio), No rub (Cardio) and Peripheral pulses 2+ throughout RATE: regular rate RHYTHM: regular rhythm HEART SOUNDS: S1 normal heart sound present and S2 normal heart sound present PERIPHERAL PULSES: Peripheral pulses 2+ throughout GI: COMMON NORMALS: Normal to inspection, nondistended, normoactive bowel sounds present, Soft to palpation, non-tender, No hepatosplenomegaly present, no masses and no bruits PALPATION: Yes Soft to palpation and Yes No hepatosplenomegaly present : COMMON NORMALS: No no CVA tenderness (Right CVA tenderness) BLADDER/KIDNEY EXAM: No no CVA tenderness (Right CVA tenderness) SCROTUM: Yes testes descended bilaterally TESTES: Yes testicular lie normal Back/Pelvis: COMMON NORMALS: negative for no CVA tenderness (Right CVA tenderness) LUMBAR SPINE/LOWER BACK: No normal to inspection (No midline tenderness. Does have some right lower pain over the right flan) Neuro: COMMON NORMALS: patient oriented x3 Course ED course: Patient feeling much better at this time. Vital Signs: Vital signs: Vital Signs Temperature 97.9 F 04/23/20 05:50 Pulse Rate 81 04/23/20 05:50 Respiratory Rate 18 04/23/20 06:56 Blood Pressure 167/93 04/23/20 05:50 Pulse Oximetry 99 04/23/20 05:50 MDM - Back Pain/Injury MDM Narrative: Medical decision making narrative: Patient feeling much better at this time. No significant abnormality noted on labs or imaging. Does have kidney stones up in the kidneys but nothing obstructive. Ultrasound of the scrotum was normal. Will discharge patient home with pain medicine and referral to see urology. Differential Diagnosis: Differential diagnosis back pain/injury: Likely lumbar radiculopathy, sciatica, strain of lumbar region and renal colic Lab Data: Labs: Lab Results 04/23/20 04/23/20 04/23/20 Range/Units 06:31 06:31 07:10 WBC Cancelled 7.8 Corrected WBC Cancelled RBC Cancelled 4.76 Hgb Cancelled 13.3 Hct Cancelled 42.3 MCV Cancelled 88.9 MCH Cancelled 27.9 L MCHC Cancelled 31.4 RDW Cancelled 13.6 Plt Count Cancelled 232 MPV Cancelled 11.1 H Gran % Cancelled Neut % (Auto) Cancelled 60.9 Lymph % (Auto) Cancelled 25.9 Leslie % (Auto) Cancelled 7.1 Eos % (Auto) Cancelled 5.3 Baso % (Auto) Cancelled 0.5 Neut # (Auto) Cancelled 4.72 Lymph # (Auto) Cancelled 2.0 Leslie # (Auto) Cancelled 0.6 Eos # (Auto) Cancelled 0.4 Baso # (Auto) Cancelled 0.0 Absolute Gran (aut o) Cancelled Nucleated RBC % (a uto) Cancelled 0 Nucleated RBCs # Cancelled 0.0 Sodium Cancelled Potassium Cancelled Chloride Cancelled Carbon Dioxide Cancelled Anion Gap Cancelled BUN Cancelled Creatinine Cancelled GFR Calculation Cancelled Glucose Cancelled Calculated Osmolal ity Cancelled Calcium Cancelled Total Bilirubin Cancelled AST Cancelled ALT Cancelled Alkaline Phosphata se Cancelled Total Protein Cancelled Albumin Cancelled Globulin Cancelled Urine Color (Yellow) Urine Appearance (CLEAR) Urine pH (5-7) Ur Specific Gravit y (1.005-1.030) Urine Protein (Negative) Urine Glucose (UA) (Normal) Urine Ketones (Negative) Urine Blood (Negative) Urine Nitrate (Negative) Urine Bilirubin (Negative) Urine Urobilinogen (Negative) mg/dL Ur Leukocyte [place] ase (Negative) 04/23/20 04/23/20 Range/Units 07:10 07:20 WBC Corrected WBC RBC Hgb Hct MCV MCH MCHC RDW Plt Count MPV Gran % Neut % (Auto) Lymph % (Auto) Leslie % (Auto) Eos % (Auto) Baso % (Auto) Neut # (Auto) Lymph # (Auto) Leslie # (Auto) Eos # (Auto) Baso # (Auto) Absolute Gran (aut o) Nucleated RBC % (a uto) Nucleated RBCs # Sodium 139 Potassium 4.5 Chloride 105 Carbon Dioxide 26 Anion Gap 12.5 BUN 17 Creatinine 0.7 GFR Calculation 122.0 Glucose 117 H Calculated Osmolal ity 291 Calcium 8.9 Total Bilirubin 0.2 AST 14 ALT 21 Alkaline Phosphata se 76 Total Protein 8.0 Albumin 3.9 Globulin 4.1 Urine Color Yellow (Yellow) Urine Appearance Clear (CLEAR) Urine pH 5 (5-7) Ur Specific Gravit y 1.010 (1.005-1.030) Urine Protein Neg (Negative) Urine Glucose (UA) Norm (Normal) Urine Ketones Negative (Negative) Urine Blood Neg (Negative) Urine Nitrate Negative (Negative) Urine Bilirubin Neg (Negative) Urine Urobilinogen Norm (Negative) mg/dL Ur Leukocyte [place] ase Negative (Negative) Discharge Plan Discharge Patient Disposition: Home Clinical Impression: Renal colic Condition: Stable Prescriptions: New Percocet 5-325 mg tablet 1 tab PO Q6H PRN (Reason: pain) Qty: 20 RF: 0 No Action Medrol (Narinder) 4 mg tablets,dose pack See Rx Instructions .ROUTE .COMPLEX Qty: 21 RF: 0 [place] 5-325 mg tablet 1 tab PO Q6H PRN (Reason: pain) Qty: 14 RF: 0 ondansetron 4 mg tablet,disintegrating 4 mg PO Q6H PRN (Reason: nausea and vomiting) Qty: 14 RF: 0 naproxen 500 mg tablet 500 mg PO BID PRN (Reason: pain) Qty: 20 RF: 0 Discharge Orders: Discharge ED (Routine); Ordered 04/23/20 Ordered By: Reagan Colindres Referrals: Sarmad Law MD [Physician] - Patient Instructions: Abdominal Pain (ED) Coding Level of Care Code ED Grinder Operator Surface Tool for Sugarg Fwd Exam Comprehensive
[2020-04-23] MEDS: ondansetron 2 mg/ML SDV 2 mL 4 MG IVP (06:43)
[2020-04-23] MEDS: morphine 4 mg/mL SDV 1 mL IVP (06:43)
[2020-04-23] MEDS: ketorolac 30 mg/mL INJ IVP (06:43)
[2020-04-23 06:56] VITALS: RESP 18
--- NOTE | 2020-04-23 07:24 | USR_ITS ---
PROCEDURE INFORMATION: Exam: US Scrotum Exam date and time: 04/23/2020 7:32 AM Age: 44 years old Clinical indication: Scrotum pain; Additional info: Right testicular pain TECHNIQUE: Imaging protocol: Real-time ultrasound of the scrotum and contents with color Doppler and image documentation. COMPARISON: No relevant prior studies available. FINDINGS: Right testicle: Right testis measures 4.4 x 2.1 x 3.3 cm. No intratesticular mass. Intratesticular blood flow demonstrated. Left testicle: Left testis measures 4.7 x 2.0 x 3.2 cm. No intratesticular mass. Intratesticular blood flow demonstrated. Epididymides: Unremarkable. Scrotum: Trace hydroceles. US/US scrotum [id number] IMPRESSION: Unremarkable sonographic appearance of the testes.
[2020-04-23 07:25] LABS: Basophils % 0.5 %; Eosinophils # 0.4 10^3/uL (0.0-0.8); Eosinophils % 5.3 %; Hematocrit 42.3 % (42.0-52.0); Hemoglobin 13.3 g/dL (11.7-16.6); Lymphocytes % 25.9 %; Mean Corpuscular HGB Conc 31.4 g/dL (30.0-36.0); Mean Corpuscular Hemoglobin 27.9 pg (28.0-34.0); Mean Corpuscular Volume 88.9 fL (80-94); Mean Platelet Volume 11.1 fL (7.4-10.4); Monocytes # 0.6 10^3/uL (0.2-0.9); Monocytes % 7.1 %; Neutrophils # 4.72 10^3/uL (1.8-7.7); Neutrophils % 60.9 %; Nucleated Red Blood Cells % 0 %; Platelet Count 232 10^3/cmm (130-400); Red Blood Count 4.76 10^6/uL (4.1-5.3); Red Cell Distribution Width 13.6 % (12.1-15.1); White Blood Count 7.8 10^3/uL (4.0-10.0)
[2020-04-23 07:40] LABS: Add Urine Microscopic? NO
[2020-04-23 07:51] LABS: Alanine Aminotransferase 21 U/L (0-41); Albumin Level 3.9 g/dL (3.5-5.2); Alkaline Phosphatase 76 IU/L (40-130); Anion Gap 12.5 (5-19); Aspartate Amino Transferase 14 U/L (0-40); Blood Urea Nitrogen 17 mg/dL (6-20); Calcium 8.9 mg/dL (8.5-10.5); Carbon Dioxide 26 mmol/L (22-29); Chloride 105 mmol/L (98-107); Glucose 117 mg/dL (65-115); Osmolality Calculated 291 mOsm/kg (285-295); Potassium 4.5 mmol/L (3.5-5.1); Sodium 139 mmol/L (136-145); Total Bilirubin 0.2 mg/dL (0.15-1.2)
[2020-04-23 07:51] LABS: Bilirubin Urine Neg (Negative); Blood Urine Neg (Negative); Glucose Urine UA Norm (Normal); Ketones Urine Negative (Negative); Leukocyte Esterase Urine Negative (Negative); Nitrate Urine Negative (Negative); Protein Urine Neg (Negative); Urine Appearance Clear (CLEAR); Urine Color Yellow (Yellow); Urobilinogen Urine Norm (Negative); pH Urine 5 (5-7)
[2020-04-23 08:00] VITALS: BP 118/79; PULSE 68; RESP 18; O2SAT 98
[2020-04-23 08:40] VITALS: BP 118/79; PULSE 68; RESP 18; O2SAT 98
[2020-04-24 19:55] LABS: Globulin 2.3 g/dL (1.3-4.6); Total Protein 6.2 g/dL (6.6-8.7)
== END 2020-04-23 08:40 | disposition home or self-care (01) ==
PROVIDERS: Emergency Provider Emergency Medicine
DX: N23 Unspecified renal colic (principal); F17.210 Nicotine dependence, cigarettes, uncomplicated
CPT/HCPCS: 12345; 74176; 76870; 80053; 81003; 85025; 96374; 96375; 99283; J1885; J2270; J2405

== ENCOUNTER → 2020-06-13 09:05 | Outpatient (BNVA) | payer SELFPAY | PROVIDERS: PCP Internal Medicine Cardiovascular Disease; Visit Provider Internal Medicine Rheumatology | DX: M05.79 Rheumatoid arthritis with rheumatoid factor of multiple sites without organ or systems involvement (principal); Z79.899 Other long term (current) drug therapy; Z11.59 Encounter for screening for other viral diseases; Z11.1 Encounter for screening for respiratory tuberculosis; L02.511 Cutaneous abscess of right hand; F17.210 Nicotine dependence, cigarettes, uncomplicated | CPT/HCPCS: 99204 ==

== ENCOUNTER 2020-06-13 11:48 | Outpatient (CLI) | payer SELFPAY ==
--- NOTE | 2020-06-13 11:52 | XR_ITS ---
WS: [id number] XR chest 2V* [id number] REASON FOR EXAM: Z79.899 - Other prison (current) drug therapy FINDINGS: The chest is unchanged compared to 06/01/2018. The heart and mediastinum are within normal limits. No active pulmonary parenchymal or pleural disease is identified. The bony thorax is intact. XR/XR chest 2V* [id number] IMPRESSION: Stable chest with no significant abnormality.
--- NOTE | 2020-06-13 11:52 | XR_ITS ---
WS: [id number] XR foot RT min 3V* [id number] REASON FOR EXAM: Z79.899 - Other retirement (current) drug therapy FINDINGS: The joint spaces of the forefoot, midfoot, and hindfoot are well preserved. No focal bony abnormality is identified. No soft tissue mass abnormality is noted. XR/XR foot RT min 3V* [id number] IMPRESSION: No significant abnormality.
--- NOTE | 2020-06-13 11:52 | XR_ITS ---
WS: [id number] XR hand RT min 3V* [id number] REASON FOR EXAM: Z79.899 - Other alf (current) drug therapy FINDINGS: The joint spaces of the right hand are well preserved. No focal bony abnormality is identified. No soft tissue abnormality is identified. XR/XR hand RT min 3V* [id number] IMPRESSION: No significant abnormality.
--- NOTE | 2020-06-13 11:52 | XR_ITS ---
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 No focal bony abnormality is identified. No soft tissue abnormality is noted. XR/XR knee RT 3V* [id number] IMPRESSION: No significant abnormality.
--- NOTE | 2020-06-13 11:52 | XR_ITS ---
WS: [id number] XR shoulder LT min 2V* [id number] REASON FOR EXAM: Z79.899 - Other [facility] (current) drug therapy FINDINGS: Joint spaces of the left shoulder are well preserved. No focal bony abnormality. No soft tissue abnormality. XR/XR shoulder LT min 2V* [id number] IMPRESSION: No significant abnormality.
--- NOTE | 2020-06-13 11:52 | XR_ITS ---
WS: [id number] XR hand LT min 3V* [id number] REASON FOR EXAM: Z79.899 - Other retirement (current) drug therapy FINDINGS: Joint spaces of the left hand are well preserved. No focal bony abnormality. No soft tissue abnormality. XR/XR hand LT min 3V* [id number] IMPRESSION: No significant abnormality.
[2020-06-13 13:08] LABS: 25 Hydroxy Vitamin D 38 ng/mL (30-100)
[2020-06-13 13:42] LABS: Hepatitis B Core AB, Total Non-Reactive (Nonreactive); Hepatitis B Surface Antigen Non-Reactive (Nonreactive); Hepatitis C Virus Antibody Non-Reactive (Nonreactive)
[2020-06-15 14:58] LABS: Quantiferon Mitogen 8.96 IU/mL; Quantiferon Nil 0.06 IU/mL; Quantiferon Plus TB1 <0.00 IU/mL; Quantiferon TB Gold NEGATIVE (NEGATIVE)
== END 2020-06-13 11:49 | disposition home or self-care (01) ==
LOC: RAD 11:49
PROVIDERS: PCP Internal Medicine Cardiovascular Disease; Visit Provider Internal Medicine Rheumatology
DX: M06.9 Rheumatoid arthritis, unspecified (principal); Z79.899 Other long term (current) drug therapy; Z11.1 Encounter for screening for respiratory tuberculosis; Z11.59 Encounter for screening for other viral diseases
CPT/HCPCS: 36415; 71046; 73030; 73130; 73562; 73630; 82306; 86480; 86704; 86803; 87340

== ENCOUNTER → 2020-07-12 09:05 | Outpatient (BNVA) | payer SELFPAY | PROVIDERS: PCP Internal Medicine Cardiovascular Disease; Visit Provider Internal Medicine Rheumatology | DX: M05.79 Rheumatoid arthritis with rheumatoid factor of multiple sites without organ or systems involvement (principal); Z79.899 Other long term (current) drug therapy | CPT/HCPCS: 36415; 80076; 82565; 85025; 86140 ==

== ENCOUNTER → 2020-08-03 14:56 | Outpatient (BNVA) | payer SELFPAY | PROVIDERS: PCP Internal Medicine Cardiovascular Disease; Visit Provider Internal Medicine Rheumatology | DX: M05.79 Rheumatoid arthritis with rheumatoid factor of multiple sites without organ or systems involvement (principal); Z79.899 Other long term (current) drug therapy; Z79.52 Long term (current) use of systemic steroids; F17.210 Nicotine dependence, cigarettes, uncomplicated | CPT/HCPCS: 99214 ==

== ENCOUNTER 2020-08-31 06:55 | Emergency (ER) | payer SELFPAY ==
[2020-08-31 07:15] VITALS: BP 132/84; PULSE 76; RESP 14; TEMP 36.6; O2SAT 96; BMI 23.7
[2020-08-31 07:19] VITALS: O2SAT 97
--- NOTE | 2020-08-31 07:23 | ED_ITS ---
HPI - Ear Problem General: Chief complaint: Ear Stated complaint: LEFT EAR PAIN Time Seen by Provider: 08/31/20 07:01 History of Present Illness: HPI Narrative: 45-year-old male presents emergency room complaining of left ear pain. He has been trying to manipulate the wax at home to get it out is not really able to get much out at all now it is causing ear pain particularly on the left. He is not had any drainage from the ear no fever sweats or chills he does notice pain with manipulation of the pinna. MD Complaint: ear pain Location: left ear Duration: intermittent Severity: mild Relieving factors: nothing Exacerbating factors: nothing Discharge from ear: no Associated symptoms: Reports ear or mastoid pain, external ear pain and hearing loss; Denies fever(s), headache(s), neck pain, rhinorrhea or tinnitus Treatment prior to arrival: attempt at ear wax removal Review of Systems Const: Denies: fever(s) ENMT: Reports: ear or mastoid pain; Denies: tinnitus Card: Denies: chest pain, edema, dyspnea on exertion or orthopnea Resp: Denies: dyspnea, productive cough or non-productive cough GI: Denies: abdominal pain, nausea, vomiting, hematemesis, coffee ground emesis, diarrhea, constipation, bloating, hematochezia or melena : Denies: flank pain, dysuria, urinary frequency or urinary urgency Musc: Denies: neck pain Skin/Breast: Denies: rash or pruritus Neuro: Denies: headache(s) PFSH ED PFSH: Medical History Abscess of finger of right hand Brain bleed Encounter for smoking cessation counseling High risk medication use Immunization counseling Joint pain Seropositive rheumatoid arthritis of multiple sites Surgical History H/O hernia repair Family History Other Hypertension Denies family history of Rheumatoid arthritis Diabetes Lupus Cancer Social History Smoking and tobacco status: current every day smoker cigarettes Packs smoked per day: 1 Alcohol intake: current Alcohol intake frequency: holidays/special occasions only Alcohol type: beer History of recent travel: No Physical Exam Const: COMMON NORMALS: no acute distress GENERAL APPEARANCE: cooperative and comfortable ORIENTATION/CONSCIOUSNESS: Yes awake, Yes oriented to person, Yes oriented to place and Yes oriented to time HENMT: COMMON NORMALS: normocephalic, atraumatic, hearing grossly normal bilaterally, Normal nasal mucous membranes and turbinates present, moist oral mucous membranes and oropharynx normal HEAD & SCALP: normocephalic and atraumatic NOSE: Normal nasal mucous membranes and turbinates present EXTERNAL AUDITORY CANAL: Abnormal EAC present EAC laterality: bilateral cerumen impaction and other (Pain with manipulation of the left pinna, no induration swelling or drainag) TYMPANIC MEMBRANE: unable to visualize TM Eye: COMMON NORMALS: Equal, round and reactive pupils present, EOMs intact bilaterally, conjunctivae normal and no scleral icterus CONJUNCTIVA: Yes conjunctivae normal PUPIL: Yes Equal, round and reactive pupils present Neck/C-Spine: COMMON NORMALS: no JVD Lymph: LYMPHATIC: no lymphadenopathy noted and no lymphedema noted Resp: COMMON NORMALS: normal respiratory effort, No retractions, No use of accessory muscles and clear to auscultation bilaterally AUSCULTATION: clear to auscultation bilaterally Cardio: COMMON NORMALS: no JVD, regular rate, regular rhythm and No murmurs present (Cardio) RATE: regular rate RHYTHM: regular rhythm Neuro: SENSORIUM/ORIENTATION: Yes oriented to person, Yes oriented to place and Yes oriented to time Course Vital Signs: Vital signs: Vital Signs Temperature 97.9 F 08/31/20 07:15 Pulse Rate 76 08/31/20 07:15 Respiratory Rate 14 08/31/20 07:15 Blood Pressure 132/84 08/31/20 07:15 Pulse Oximetry 97 08/31/20 07:19 MDM - Ear MDM Narrative: Medical decision making narrative: Patient has significantly impacted cerumen bilaterally cannot visualize anything past it. He probably has pain from attempted manipulation at home he may have an infection from it as well I do not see any obvious signs other than his pain that he has on exam we will go and put him on Corticosporin Arctic drops and refer to ENT Discharge Plan Discharge Patient Disposition: Home Clinical Impression: Bilateral impacted cerumen, Otitis externa Condition: Stable Prescriptions: New buzldsoo-qolxfenak-WM 3.5-10,000-1 mg/mL-unit/mL-% drops,suspension 4 drp otic (ear) Q6H 7 Days Qty: 10 RF: 0 No Action folic acid 1 mg tablet 1 mg PO DAILY Qty: 90 RF: 3 prednisone 10 mg tablet See Rx Instructions PO DAILY Qty: 30 RF: 3 methotrexate sodium 2.5 mg tablet 15 mg PO .Q7days Qty: 30 RF: 3 Discharge Orders: Discharge ED (Routine); Ordered 08/31/20 Ordered By: Bi Amezcua Referrals: Vern Ponce MD [Primary Care Provider] - Patient Instructions: Opioid Safety Activity Restrictions/Additional Instructions: Case management will call with an appointment to see ENT to remove the impacted wax from ears Coding Level of Care Code ED Chiropractic Assistant for Keisha Blackburn
--- NOTE | 2020-08-31 09:22 | DCPLANNER ---
human resources assistant manager had message to schedule a follow up appointment for patient with ENT. human resources assistant manager emailed patients information to Ragini Still and Jayla at [facility]. Patients information will be printed and reviewed, clinic will call patient with appointment information.
--- NOTE | 2020-09-07 07:53 | DCPLANNER ---
Patient had a follow up appointment scheduled for 09.04.[address] Diaz at ENT - patient did attend appointment.
== END 2020-08-31 07:31 | disposition home or self-care (01) ==
PROVIDERS: Emergency Provider Family Medicine; PCP Internal Medicine Cardiovascular Disease
DX: H61.23 Impacted cerumen, bilateral (principal); H60.90 Unspecified otitis externa, unspecified ear; F17.210 Nicotine dependence, cigarettes, uncomplicated
CPT/HCPCS: 99281

== ENCOUNTER 2020-10-22 18:21 | Emergency (ER) | payer SELFPAY ==
--- NOTE | 2020-10-22 18:25 | XRR_ITS ---
PROCEDURE INFORMATION: Exam: XR Chest Exam date and time: 10/22/2020 6:25 PM Age: 45 years old Clinical indication: Dyspnea; Additional info: Dyspnea/cough TECHNIQUE: Imaging protocol: XR of the chest. Views: 1 view. COMPARISON: CR XR chest 2V* [id number] 06/13/2020 11:57 AM FINDINGS: Lungs: Unremarkable. No consolidation. Pleural spaces: Unremarkable. No pleural effusion. No pneumothorax. Heart/Mediastinum: Unremarkable. No cardiomegaly. Bones/joints: Unremarkable. XR/XR chest 1V portable [id number] IMPRESSION: No acute findings.
[2020-10-22 18:31] VITALS: BP 154/92; PULSE 70; RESP 17; TEMP 37.2; O2SAT 98; BMI 24.4
--- NOTE | 2020-10-22 19:03 | ED_ITS ---
HPI - COVID General: Chief Complaint: Shortness of Breath/Dyspnea Stated Complaint: COVID SYMPTOMATIC:COUGH,LOSS/TASTE,GEN MALAISE Time Seen by Provider: 10/22/20 18:55 Triage information: No fever, cough or shortness of breath . No known COVID + exposure last 14 days History of Present Illness: HPI Narrative: 45-year-old male history of rheumatoid arthritis presents emergency room complaining of fatigue is lungs feeling full. He says has some myalgias and headaches as well as cough. He has had some mild anosmia. Initially the first 2 days he had some diarrhea as well that has resolved. MD complaint: has COVID symptoms Prior covid testing: no COVID 19 common symptoms: positive fever(s), chills, cough, non-productive cough, dyspnea, fatigue, body aches, headache(s), loss of sense of smell and/or taste, nasal congestion and diarrhea COVID 19 other sytmptoms: negative chest pain or requiring oxygen Onset (ago): day(s) (7) Severity: mild Pertinent comorbid conditions: immunocompromised state Treatment prior to arrival: none COVID Results: Nasal/Oral Coronavirus 2019 PCR Pending 10/22/20 19:01 10/22/20 Review of Systems Const: Reports: fever(s), chills, body aches and fatigue ENMT: Reports: nasal congestion Card: Denies: chest pain, edema, dyspnea on exertion or orthopnea Resp: Reports: dyspnea and non-productive cough GI: Reports: diarrhea : Denies: flank pain, dysuria, urinary frequency or urinary urgency Skin/Breast: Denies: rash or pruritus Neuro: Reports: headache(s) PFS ED PFSH: Medical History Abscess of finger of right hand Brain bleed Encounter for smoking cessation counseling High risk medication use Immunization counseling Joint pain Seropositive rheumatoid arthritis of multiple sites Surgical History H/O hernia repair Family History Other Hypertension Denies family history of Rheumatoid arthritis Diabetes Lupus Cancer Social History Smoking and tobacco status: current every day smoker cigarettes Packs smoked per day: 1 Years cigarettes smoked: 32 Alcohol intake: current Alcohol intake frequency: holidays/special occasions only Alcohol type: beer History of recent travel: No Physical Exam Const: COMMON NORMALS: no acute distress GENERAL APPEARANCE: cooperative and comfortable ORIENTATION/CONSCIOUSNESS: Yes awake, Yes oriented to person, Yes oriented to place and Yes oriented to time HENMT: COMMON NORMALS: normocephalic, atraumatic, hearing grossly normal bilaterally and external ears normal HEAD & SCALP: normocephalic and atraumatic EXTERNAL EAR: Yes external ears normal Neck/C-Spine: COMMON NORMALS: no JVD Resp: AUSCULTATION: rhonchi left lower Cardio: COMMON NORMALS: no JVD, regular rate, regular rhythm and No murmurs present (Cardio) RATE: regular rate RHYTHM: regular rhythm GI: COMMON NORMALS: Soft to palpation and No hepatosplenomegaly present AUSCULTATION: Yes normoactive bowel sounds PALPATION: Yes Soft to palpation, No Tenderness to palpation present (GI), No Guarding due to palpation present (GI) and Yes No hepatosplenomegaly present Extremity: COMMON NORMALS: normal to inspection, capillary refill normal, no clubbing, cyanosis or edema, no calf tenderness and no pedal edema Neuro: SENSORIUM/ORIENTATION: Yes oriented to person, Yes oriented to place and Yes oriented to time Skin: COMMON NORMALS: no rashes or lesions noted GENERAL SKIN EXAM: no rashes or lesions noted Course Vital Signs: Vital signs: Vital Signs Temperature 98.9 F 10/22/20 18:31 Pulse Rate 58 L 10/22/20 21:54 Respiratory Rate 20 H 10/22/20 21:54 Blood Pressure 164/101 10/22/20 21:54 Pulse Oximetry 99 10/22/20 21:54 MDM - COVID MDM Narrative: Medical decision making narrative: Suspect patient does have COVID-19. His antigen was negative we will wait on the PCR. Discussed monoclonal antibodies with him he would be a candidate he is uncertain if he wishes to proceed reviewed the risk benefits and alternatives she wishes to look some things up on his own prior to consenting to it. He will wait until he gets the positive result. COVID Results: Nasal/Oral Coronavirus 2019 PCR Pending 10/22/20 19:01 10/22/20 Discharge Plan Discharge Patient Disposition: Home Clinical Impression: Viral URI with cough, Suspected 2019-nCoV infection Condition: Stable Prescriptions: No Action folic acid 1 mg tablet 1 mg PO DAILY Qty: 90 RF: 3 prednisone 10 mg tablet See Rx Instructions PO DAILY Qty: 30 RF: 3 methotrexate sodium 2.5 mg tablet 15 mg PO .Q7days Qty: 30 RF: 3 Discharge Orders: Discharge ED (Routine); Ordered 10/22/20 Ordered By: Bi Amezcua Patient Instructions: Opioid Safety Coding Level of Care Code ED Certified Teacher Assistant for Keisha Fwd Exam Comprehensive
[2020-10-22 19:12] VITALS: BP 144/97; PULSE 66; RESP 18; O2SAT 98
[2020-10-22 21:54] VITALS: BP 164/101; PULSE 58; RESP 20; O2SAT 99
[2020-10-23 14:01] LABS: Coronavirus Test Green County Detected
== END 2020-10-22 21:58 | disposition home or self-care (01) ==
PROVIDERS: Absent Provider Internal Medicine Rheumatology; Emergency Provider Family Medicine
DX: J06.9 Acute upper respiratory infection, unspecified (principal); M05.89 Other rheumatoid arthritis with rheumatoid factor of multiple sites; F17.210 Nicotine dependence, cigarettes, uncomplicated
CPT/HCPCS: 71045; 87635; 99283

== ENCOUNTER 2020-10-24 07:08 | Outpatient (CLI) | payer SELFPAY ==
[2020-10-24 09:15] VITALS: BP 128/76; PULSE 59; RESP 14; TEMP 36.7; O2SAT 97
--- NOTE | 2020-10-24 09:15 | W.ED.GENADLT ---
HPI - General Adult History of Present Illness: HPI narrative: This patient presents to the emergency department for monoclonal antibody infusion related to COVID-19 infection. Patient denies any increased shortness of breath. Or any significant fever. Patient and I discussed all risk and concerns. Patient states understanding he request request to proceed. Patient is medically medically stable and will proceed with monoclonal infusion. complaint: Covid 19 Onset (ago): day(s) Associated symptoms: Deny chest pain, dyspnea, headache(s), nausea, rash, palpitations or vomiting Review of Systems General: Reports: 10 or more systems reviewed and unremarkable except in HPI and below Const: Denies: fever(s), chills, body aches or fatigue Eyes: Denies: change in vision or blurry vision ENMT: Denies: throat pain, hoarseness or mouth pain Card: Denies: chest pain, palpitations, irregular heart rhythm, edema, swelling of feet/ankles or lightheadedness Resp: Denies: dyspnea, productive cough, non-productive cough, wheezing or pain on inspiration GI: Denies: abdominal pain, nausea or vomiting : Denies: flank pain, dysuria, urinary frequency, urinary urgency or urinary hesitancy Musc: Denies: neck pain, back pain, extremity pain, extremity swelling, joint pain, joint swelling, joint redness, joint warmth or limited range of motion Skin/Breast: Denies: rash, pruritus, erythema or skin tenderness Neuro: Denies: headache(s), numbness in extremities or weakness in extremities Psych: Denies: anxiety or depression PFS ED PFSH: Medical History Abscess of finger of right hand Brain bleed Encounter for smoking cessation counseling High risk medication use Immunization counseling Joint pain Seropositive rheumatoid arthritis of multiple sites Surgical History H/O hernia repair Family History Other Hypertension Denies family history of Rheumatoid arthritis Diabetes Lupus Cancer Social History Smoking and tobacco status: current every day smoker cigarettes Packs smoked per day: 1 Years cigarettes smoked: 32 Alcohol intake: current Alcohol intake frequency: holidays/special occasions only Alcohol type: beer History of recent travel: No Physical Exam Const: COMMON NORMALS: no acute distress, average body habitus, patient oriented x3, no limitations, healthy appearing, alert and well nourished HENMT: COMMON NORMALS: normocephalic, atraumatic, hearing grossly normal bilaterally, external ears normal, EAC's normal, TM's normal bilaterally, Normal external nose present, Normal nasal mucous membranes and turbinates present, moist oral mucous membranes, oropharynx normal, dentition normal and gingiva normal HEAD & SCALP: normocephalic and atraumatic NOSE: Normal external nose present and Normal nasal mucous membranes and turbinates present EXTERNAL EAR: Yes external ears normal EXTERNAL AUDITORY CANAL: EAC's normal TYMPANIC MEMBRANE: TM's normal bilaterally Neck/C-Spine: COMMON NORMALS: full ROM, no lymphadenopathy, supple, no meningeal signs, no JVD, Thyroid normal and No carotid bruits THYROID: Thyroid normal Chest: COMMONS NORMALS: normal inspection of the chest, normal palpation of entire chest wall, normal inspection of the breasts and normal palpation of the breasts Breast/axilla inspection: Yes normal inspection of the breasts BREAST/AXILLA PALPATION: Yes normal palpation of the breasts Resp: COMMON NORMALS: normal respiratory effort, No retractions, No use of accessory muscles, clear to auscultation bilaterally and percussion normal AUSCULTATION: clear to auscultation bilaterally PERCUSSION: percussion normal Cardio: COMMON NORMALS: no JVD, regular rate, regular rhythm, S1 normal heart sound present, S2 normal heart sound present, No gallops present (Cardio), No clicks present (Cardio), No murmurs present (Cardio), No rub (Cardio) and Peripheral pulses 2+ throughout RATE: regular rate RHYTHM: regular rhythm HEART SOUNDS: S1 normal heart sound present and S2 normal heart sound present PERIPHERAL PULSES: Peripheral pulses 2+ throughout GI: COMMON NORMALS: Normal to inspection, nondistended, normoactive bowel sounds present, Soft to palpation, non-tender, No hepatosplenomegaly present, no masses and no bruits PALPATION: Yes Soft to palpation and Yes No hepatosplenomegaly present : COMMON NORMALS: Yes no CVA tenderness BLADDER/KIDNEY EXAM: Yes no CVA tenderness Back/Pelvis: COMMON NORMALS: no CVA tenderness, thoracic and lumbar spine normal to inspection, no thoracic nor lumbar tenderness, thoraco-lumbar ROM normal and straight leg raise negative bilaterally Extremity: COMMON NORMALS: normal to inspection, full ROM, capillary refill normal, no joint enlargement, no clubbing, cyanosis or edema, no calf tenderness and no pedal edema Neuro: COMMON NORMALS: patient oriented x3 SENSORIUM/ORIENTATION: Yes alert MENINGEAL SIGNS: Yes no meningeal signs MDM - General Adult MDM Narrative: Medical decision making narrative: This patient presents to the emergency department for monoclonal antibody infusion related to COVID-19 infection. Patient denies any increased shortness of breath. Or any significant fever. Patient and I discussed all risk and concerns. Patient states understanding he request request to proceed. Patient is medically medically stable and will proceed with monoclonal infusion. Discharge Plan Discharge Patient Disposition: Home Prescriptions: No Action folic acid 1 mg tablet 1 mg PO DAILY Qty: 90 RF: 3 prednisone 10 mg tablet See Rx Instructions PO DAILY Qty: 30 RF: 3 methotrexate sodium 2.5 mg tablet 15 mg PO .Q7days Qty: 30 RF: 3 Discharge Orders: Discharge Order (Routine); Ordered 10/24/20 Ordered By: Timothy Berman Coding Level of Care Code ED Tool And Die Inspector for Keisha Blackburn
[2020-10-24 10:49] VITALS: BP 125/86; PULSE 51; TEMP 36.6; O2SAT 99
--- NOTE | 2020-10-24 10:50 | PC.NURSE ---
Patient vomited approximately 5 minutes into infusion, but otherwise felt fine. Checked with him frequently during transfusion, stated that nausea had passed and that he was fine.
[2020-10-24 11:59] VITALS: BP 131/86; PULSE 56; TEMP 36.8; O2SAT 98
--- NOTE | 2020-11-02 13:49 | DCPLANNER ---
talent management manager had message that patient received the monoclonal antibody infusion. talent management manager called phone number [phone] to check on patient after receiving the infusion. talent management manager unable to speak with patient at this time, and unable to leave a voicemail for patient, due to no voicemail box set up.
== END 2020-10-24 07:09 | disposition home or self-care (01) ==
PROVIDERS: Visit Provider Family Medicine
DX: U07.1 COVID-19 (principal)

== ENCOUNTER → 2020-11-13 13:33 | Outpatient (BNVA) | payer SELFPAY | PROVIDERS: Visit Provider Internal Medicine Rheumatology | DX: M05.79 Rheumatoid arthritis with rheumatoid factor of multiple sites without organ or systems involvement (principal); Z71.89 Other specified counseling; Z79.899 Other long term (current) drug therapy | CPT/HCPCS: 36415; 80076; 82565; 85025; 86140 ==

== ENCOUNTER → 2020-11-15 13:29 | Outpatient (BNVA) | payer SELFPAY | PROVIDERS: Visit Provider Internal Medicine Rheumatology | DX: M05.79 Rheumatoid arthritis with rheumatoid factor of multiple sites without organ or systems involvement (principal); Z79.899 Other long term (current) drug therapy; Z71.89 Other specified counseling; F17.210 Nicotine dependence, cigarettes, uncomplicated | CPT/HCPCS: 99213; 99214 ==

== ENCOUNTER → 2021-03-12 13:59 | Outpatient (BNVA) | payer SELFPAY | PROVIDERS: Visit Provider Internal Medicine Rheumatology | DX: M05.79 Rheumatoid arthritis with rheumatoid factor of multiple sites without organ or systems involvement (principal); Z79.899 Other long term (current) drug therapy; Z79.52 Long term (current) use of systemic steroids; Z71.89 Other specified counseling; F17.210 Nicotine dependence, cigarettes, uncomplicated | CPT/HCPCS: 99214 ==

== ENCOUNTER 2021-03-19 17:16 | Emergency (ER) | payer SELFPAY ==
[2021-03-19 17:58] VITALS: BP 137/100; PULSE 79; RESP 18; TEMP 36.4; O2SAT 98; BMI 25.7
--- NOTE | 2021-03-19 18:00 | XRR_ITS ---
PROCEDURE INFORMATION: Exam: XR Chest Exam date and time: 03/19/2021 6:00 PM Age: 45 years old Clinical indication: Pain; Angina pectoris; Additional info: Cp, started 2 weeks ago TECHNIQUE: Imaging protocol: XR of the chest. Views: 1 view. Total images: 1 COMPARISON: CR XR chest 1V portable [id number] 10/22/2020 7:03 PM FINDINGS: Lungs: No visible active interstitial or alveolar airspace disease. Pleural spaces: Unremarkable. No pleural effusion. No pneumothorax. Heart/Mediastinum: Cardiac structures and configuration within normal limits. Bones/joints: Unremarkable. XR/XR chest 1V portable [id number] IMPRESSION: Nonacute.
--- NOTE | 2021-03-19 19:47 | ED_ITS ---
HPI - General Adult General: Chief complaint: General Medical Stated complaint: CP/TROUBLE BREATHING Time Seen by Provider: 03/19/21 18:26 History of Present Illness: HPI narrative: Patient states he has discomfort and has chest area after he was pushing a broom and felt a pop in his rib cage. Patient is worried that maybe it broke a rib. Says it hurts when he takes deep inspiration. No other complaints or problems. Onset (ago): day(s) Location: chest Radiation: non-radiation Severity: mild Severity scale (1-10): 2 Quality: burning (With deep inspiration) Pain Consistency: intermittent Relieving factors: immobilization Exacerbating factors: movement Associated symptoms: Reports no associated symptoms; Deny chest pain, dyspnea, headache(s), nausea, rash or vomiting Review of Systems Const: Denies: fever(s), chills or body aches Eyes: Denies: change in vision or blurry vision ENMT: Denies: throat pain or nasal congestion Card: Denies: chest pain or dyspnea on exertion Resp: Denies: dyspnea, productive cough or non-productive cough GI: Denies: abdominal pain, nausea or vomiting : Denies: difficulty urinating Musc: Reports: extremity pain (Left rib cage pain after felt a pop when he was pushing a broom a week ago) Skin/Breast: Denies: rash Neuro: Denies: headache(s) Psych: Denies: anxiety or depression Steven/Lymph: Denies: easy bruising PFS ED PFSH: Medical History (Updated 03/19/21 @ 18:50 by HANS Dietrich) Abscess of finger of right hand Brain bleed Chronic steroid use Encounter for smoking cessation counseling High risk medication use Immunization counseling Joint pain Seropositive rheumatoid arthritis of multiple sites Surgical History H/O hernia repair Family History Other Hypertension Denies family history of Rheumatoid arthritis Diabetes Lupus Cancer Social History Smoking and tobacco status: current every day smoker cigarettes Packs smoked per day: 1 Years cigarettes smoked: 32 Alcohol intake: current Alcohol intake frequency: holidays/special occasions only Alcohol type: beer History of recent travel: No Physical Exam Const: COMMON NORMALS: no acute distress, average body habitus and patient oriented x3 HENMT: COMMON NORMALS: normocephalic HEAD & SCALP: normal to inspection and normocephalic FACE & SINUS: normal facial exam Eye: COMMON NORMALS: conjunctivae normal GENERAL EYE: appearance normal, both eyes and all related structures CONJUNCTIVA: Yes conjunctivae normal Neck/C-Spine: COMMON NORMALS: no JVD Chest: CHEST: Yes localized rib tenderness with anteroposterior compression Location: 6th rib and 7th rib Resp: COMMON NORMALS: normal respiratory effort and clear to auscultation bilaterally AUSCULTATION: clear to auscultation bilaterally Cardio: COMMON NORMALS: no JVD, regular rate and regular rhythm RATE: regular rate RHYTHM: regular rhythm GI: COMMON NORMALS: Normal to inspection, nondistended, normoactive bowel sounds present Extremity: COMMON NORMALS: normal to inspection and full ROM Neuro: COMMON NORMALS: patient oriented x3 Course Vital Signs: Vital signs: Vital Signs Temperature 97.5 F L 03/19/21 17:58 Pulse Rate 79 03/19/21 17:58 Respiratory Rate 18 03/19/21 17:58 Blood Pressure 137/100 03/19/21 17:58 Pulse Oximetry 98 03/19/21 17:58 MDM - General Adult MDM Narrative: Medical decision making narrative: Patient complains about pain left chest with palpation with movement. Patient stated he felt a pop in his chest when he is pushing a broom the other day and its been hurting ever since when he takes in a deep breath or does certain movements. Denies any shortness of breath chest heaviness or other related problems. Patient is asking make sure to have an x-ray make sure rib is not broke. Radiology study negative Discharge Plan Discharge Patient Disposition: Home Clinical Impression: Rib pain on left side Condition: Stable Prescriptions: No Action folic acid 1 mg tablet 1 mg PO DAILY Qty: 90 RF: 3 methotrexate sodium 2.5 mg tablet 15 mg PO .Q7days Qty: 30 RF: 3 prednisone 10 mg tablet 10 mg PO DAILY PRN (Reason: joint pain) Qty: 30 RF: 3 Humira Pen 40 mg/0.8 mL pen injector kit 40 mg SUBCUT Q14D Qty: 2 RF: 3 Discharge Orders: Discharge ED (Routine); Ordered 03/19/21 Ordered By: Fam Davis Discharge Diet: Usual diet Discharge Activity: Increase activity as tolerated Activity Restrictions/Additional Instructions: Follow-up your family medical provider as needed are you can return here if worsening of symptoms. Continue present medications can take ibuprofen or Tylenol for discomfort. Coding Level of Care Code ED Branch Lending Officer for Keisha Fwd Exam Comprehensive
== END 2021-03-19 19:08 | disposition home or self-care (01) ==
PROVIDERS: Emergency Provider Nurse Practitioner Family
DX: R07.81 Pleurodynia (principal); F17.210 Nicotine dependence, cigarettes, uncomplicated
CPT/HCPCS: 71045; 99282

== ENCOUNTER 2021-03-23 14:47 | Outpatient (CLI) | payer SELFPAY ==
[2021-03-23 15:13] LABS: Basophils % 0.3 %; Eosinophils # 0.3 10^3/uL (0.0-0.8); Eosinophils % 2.4 %; Hematocrit 41.7 % (42.0-52.0); Hemoglobin 13.6 g/dL (11.7-16.6); Lymphocytes # 2.7 10^3/uL (0.8-4.8); Lymphocytes % 23.5 %; Mean Corpuscular HGB Conc 32.6 g/dL (30.0-36.0); Mean Corpuscular Hemoglobin 29.5 pg (28.0-34.0); Mean Corpuscular Volume 90.5 fl (80-94); Mean Platelet Volume 10.5 fL (7.4-10.4); Monocytes % 8.6 %; Neutrophils # 7.37 10^3/uL (1.8-7.7); Neutrophils % 64.9 %; Nucleated Red Blood Cells % 0 %; Platelet Count 243 10^3/cmm (130-400); Red Blood Count 4.61 10^6/uL (4.1-5.3); Red Cell Distribution Width 14.1 % (12.1-15.1); White Blood Count 11.4 10^3/uL (4.0-10.0)
[2021-03-23 15:28] LABS: Alanine Aminotransferase 13 U/L (0-41); Albumin Level 4.8 g/dL (3.5-5.2); Alkaline Phosphatase 81 IU/L (40-130); Aspartate Amino Transferase 19 U/L (0-40); C Reactive Protein 1.9 mg/L (0.0-4.9); Globulin 2.2 g/dL (1.3-4.6); Glomerular Filtration Rate 104.1 mL/min (90-130); Total Bilirubin 0.6 mg/dL (0.15-1.2)
== END 2021-03-23 14:48 | disposition home or self-care (01) ==
PROVIDERS: Visit Provider Internal Medicine Rheumatology
DX: M05.79 Rheumatoid arthritis with rheumatoid factor of multiple sites without organ or systems involvement (principal); Z79.899 Other long term (current) drug therapy
CPT/HCPCS: 36415; 80076; 82565; 85025; 86140

== ENCOUNTER 2021-06-08 14:06 | Outpatient (CLI) | payer SELFPAY ==
[2021-06-08 14:43] LABS: Basophils % 0.4 %; Eosinophils # 0.1 10^3/uL (0.0-0.8); Hematocrit 43.1 % (42.0-52.0); Hemoglobin 13.9 g/dL (11.7-16.6); Lymphocytes # 2.2 10^3/uL (0.8-4.8); Lymphocytes % 27.5 %; Mean Corpuscular HGB Conc 32.3 g/dL (30.0-36.0); Mean Corpuscular Hemoglobin 29.4 pg (28.0-34.0); Mean Corpuscular Volume 91.3 fl (80-94); Mean Platelet Volume 10.4 fL (7.4-10.4); Monocytes # 0.7 10^3/uL (0.2-0.9); Monocytes % 8.4 %; Neutrophils # 5.04 10^3/uL (1.8-7.7); Neutrophils % 62.5 %; Nucleated Red Blood Cells % 0 %; Platelet Count 261 10^3/cmm (130-400); Red Blood Count 4.72 10^6/uL (4.1-5.3); Red Cell Distribution Width 13.2 % (12.1-15.1); White Blood Count 8.1 10^3/uL (4.0-10.0)
[2021-06-08 14:49] LABS: Alanine Aminotransferase 16 U/L (0-41); Albumin Level 4.6 g/dL (3.5-5.2); Alkaline Phosphatase 96 IU/L (40-130); Aspartate Amino Transferase 16 U/L (0-40); C Reactive Protein 3.9 mg/L (0.0-4.9); Globulin 2.4 g/dL (1.3-4.6); Glomerular Filtration Rate 90.8 mL/min (90-130); Total Bilirubin 0.3 mg/dL (0.15-1.2)
== END 2021-06-08 14:07 | disposition home or self-care (01) ==
LOC: LAB 14:08
PROVIDERS: PCP Internal Medicine Rheumatology; Visit Provider Internal Medicine Rheumatology
DX: M05.79 Rheumatoid arthritis with rheumatoid factor of multiple sites without organ or systems involvement (principal); Z79.899 Other long term (current) drug therapy
CPT/HCPCS: 80076; 82565; 85025; 86140

== ENCOUNTER 2021-06-09 10:08 | Emergency (ER) | payer SELFPAY ==
[2021-06-09 10:14] VITALS: BP 135/80; PULSE 67; RESP 16; TEMP 36.6; O2SAT 99; BMI 26.4
--- NOTE | 2021-06-09 10:35 | W.ED.GENADLT ---
HPI - General Adult General: Chief complaint: Upper Respiratory Infection Stated complaint: Cough Time Seen by Provider: 06/09/21 10:16 History of Present Illness: Patient presents with cough the last few days. Patient has concerns about lung infection since he is on medication for his rheumatoid arthritis. Patient also history of cervical radiculopathy that been flaring up here lately. This on the right side Associated symptoms: Deny chest pain, dyspnea, headache(s), nausea, rash or vomiting Review of Systems Const: Denies: fever(s), chills or body aches Eyes: Denies: eye discomfort ENMT: Denies: throat pain Card: Denies: chest pain Resp: Reports: productive cough; Denies: dyspnea, wheezing, pain on inspiration, change in phlegm color or hemoptysis GI: Denies: abdominal pain, nausea or vomiting Musc: Reports: neck pain and back pain Skin/Breast: Denies: rash Neuro: Denies: headache(s) Psych: Denies: depression or suicidal ideation PFS ED PFSH: Medical History (Updated 06/09/21 @ 10:37 by HANS Dietrich) Abscess of finger of right hand Brain bleed Chronic steroid use Encounter for smoking cessation counseling High risk medication use Immunization counseling Joint pain Seropositive rheumatoid arthritis of multiple sites Surgical History H/O hernia repair Family History Other Hypertension Denies family history of Rheumatoid arthritis Diabetes Lupus Cancer Social History Smoking and tobacco status: current every day smoker cigarettes Packs smoked per day: 1 Years cigarettes smoked: 32 Alcohol intake: current Alcohol intake frequency: holidays/special occasions only Alcohol type: beer History of recent travel: No Physical Exam Const: COMMON NORMALS: no acute distress, patient oriented x3 and alert HENMT: COMMON NORMALS: normocephalic and external ears normal HEAD & SCALP: normocephalic EXTERNAL EAR: Yes external ears normal Eye: COMMON NORMALS: EOMs intact bilaterally Neck/C-Spine: COMMON NORMALS: no JVD Resp: COMMON NORMALS: normal respiratory effort and No use of accessory muscles Cardio: COMMON NORMALS: no JVD GI: INSPECTION: Yes normal to inspection Back/Pelvis: OTHER: Tenderness in the right trapezius area and radiates down to the right shoulder. Extremity: COMMON NORMALS: normal to inspection and full ROM Neuro: COMMON NORMALS: patient oriented x3 SENSORIUM/ORIENTATION: Yes alert Psych: COMMON NORMALS: mental status grossly normal Skin: COMMON NORMALS: no rashes or lesions noted GENERAL SKIN EXAM: no rashes or lesions noted Course Vital Signs: Vital signs: Vital Signs Temperature 97.8 F 06/09/21 10:14 Pulse Rate 67 06/09/21 10:14 Respiratory Rate 16 06/09/21 10:14 Blood Pressure 135/80 06/09/21 10:14 Pulse Oximetry 99 06/09/21 10:14 [facility] - General Adult Medical Decision Making Patient presents immunosuppressive state because of methotrexate and prednisone. Patient's had a cough for the last few days. Patient appears to have bronchitis on physical exam and right cervical radiculopathy. Discharge Plan Discharge Patient Disposition: Home Clinical Impression: Bronchitis, Cervical radiculopathy, Tobacco use disorder Condition: Stable Prescriptions: New Zithromax Z-Narinder 250 mg tablet See Rx Instructions .ROUTE .COMPLEX Qty: 6 0RF Rx Instructions: take 500 mg today (day 1), then 250 mg for 4 days (days 2-5) prednisone 20 mg tablet 20 mg PO DAILY Qty: 7 0RF ProAir HFA 90 mcg/actuation HFA aerosol inhaler 2 inh inhalation Q4H PRN (Reason: shortness of breath or wheezing) Qty: 6.7 0RF No Action folic acid 1 mg tablet 1 mg PO DAILY Qty: 90 3RF methotrexate sodium 2.5 mg tablet 15 mg PO .Q7days Qty: 30 3RF prednisone 10 mg tablet 10 mg PO DAILY PRN (Reason: joint pain) Qty: 30 3RF Rx Instructions: take as directed by physician Humira Pen 40 mg/0.8 mL pen injector kit 40 mg SUBCUT Q14D Qty: 2 0RF Discharge Orders: Discharge ED (Routine); Ordered 06/09/21 Ordered By: Fam Davis Referrals: Primitivo Holder MD [Primary Care Provider] - Discharge Diet: Usual diet Discharge Activity: Resume usual activity Patient Instructions: Acute Bronchitis (ED) Activity Restrictions/Additional Instructions: Follow-up with medical provider as directed. Take medications as prescribed. Return to the ER or your medical provider if condition worsens. Please read and understand discharge instructions. If any questions ask please. Coding Level of Care Code ED Creative Services Writer for Keisha Blackburn
[2021-06-09 10:47] VITALS: PULSE 69; RESP 14; O2SAT 99
== END 2021-06-09 10:48 | disposition home or self-care (01) ==
PROVIDERS: Emergency Provider Nurse Practitioner Family; PCP Internal Medicine Rheumatology
DX: J40 Bronchitis, not specified as acute or chronic (principal); M54.12 Radiculopathy, cervical region; F17.210 Nicotine dependence, cigarettes, uncomplicated
CPT/HCPCS: 99281

== ENCOUNTER 2021-09-14 15:56 | Outpatient (CLI) | payer SELFPAY ==
[2021-09-14 16:20] LABS: Basophils % 0.1 %; Eosinophils % 0.4 %; Hemoglobin 13.9 g/dL (11.7-16.6); Lymphocytes # 3.7 10^3/uL (0.8-4.8); Lymphocytes % 33.1 %; Mean Corpuscular HGB Conc 33.1 g/dL (30.0-36.0); Mean Corpuscular Hemoglobin 29.1 pg (28.0-34.0); Mean Corpuscular Volume 88.1 fl (80-94); Mean Platelet Volume 10.5 fL (7.4-10.4); Monocytes # 0.8 10^3/uL (0.2-0.9); Monocytes % 7.2 %; Nucleated Red Blood Cells % 0 %; Platelet Count 287 10^3/cmm (130-400); Red Blood Count 4.77 10^6/uL (4.1-5.3); Red Cell Distribution Width 13.5 % (12.1-15.1); White Blood Count 11.2 10^3/uL (4.0-10.0)
[2021-09-14 16:56] LABS: Alanine Aminotransferase 13 U/L (0-41); Albumin Level 4.9 g/dL (3.5-5.2); Alkaline Phosphatase 87 IU/L (40-130); Aspartate Amino Transferase 14 U/L (0-40); Globulin 1.9 g/dL (1.3-4.6); Glomerular Filtration Rate 90.4 mL/min (90-130); Total Bilirubin 0.5 mg/dL (0.15-1.2); Total Protein 6.8 g/dL (6.6-8.7)
== END 2021-09-14 15:57 | disposition home or self-care (01) ==
LOC: LAB 15:58
PROVIDERS: PCP Internal Medicine Rheumatology; Visit Provider Internal Medicine Rheumatology
DX: M05.79 Rheumatoid arthritis with rheumatoid factor of multiple sites without organ or systems involvement (principal); Z79.899 Other long term (current) drug therapy
CPT/HCPCS: 36415; 80076; 82565; 85025; 86140

== ENCOUNTER → 2021-10-15 14:48 | Outpatient (BNVA) | payer SELFPAY | PROVIDERS: PCP Internal Medicine Rheumatology; Visit Provider Internal Medicine Rheumatology | DX: M05.79 Rheumatoid arthritis with rheumatoid factor of multiple sites without organ or systems involvement (principal) | CPT/HCPCS: 73130 ==

== ENCOUNTER 2021-12-18 22:09 | Emergency (ER) | payer SELFPAY ==
[2021-12-18 22:14] VITALS: BP 153/77; PULSE 89; RESP 16; TEMP 36.7; O2SAT 98
[2021-12-18 22:32] VITALS: BP 111/79; PULSE 86; RESP 14; O2SAT 96
--- NOTE | 2021-12-18 22:55 | ED_ITS ---
HPI - Back Pain/Injury General: Chief Complaint: Back Pain/Injury Stated Complaint: can't move neck Time Seen by Provider: 12/18/21 22:31 History of Present Illness: Patient is a 46-year-old male comes to the ED with neck pain. Patient has a history of rheumatoid arthritis. States that neck pain started this morning when he got up and has progressed and gotten more painful and stiff throughout the day. He has trouble moving his neck in certain positions because a gets muscle spasms in his neck because worsening pain. 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 Denies any fall or tra adore to cause neck pain. Denies any fever, nausea/vomiting or any other neurological symptoms. Associated symptoms: Deny abdominal pain, chills, dysuria, fatigue, fever(s), hematuria, nausea or vomiting Review of Systems Const: Denies: fever(s), chills or fatigue Eyes: Denies: change in vision or eye discomfort ENMT: Denies: throat pain, odynophagia, nasal discharge or nasal congestion Card: Denies: chest pain, palpitations, edema, swelling of feet/ankles, dyspnea on exertion or orthopnea Resp: Denies: dyspnea, productive cough or non-productive cough GI: Denies: abdominal pain, nausea, vomiting, diarrhea, constipation or hematochezia : Denies: flank pain, difficulty urinating, dysuria or hematuria Musc: Reports: neck pain; Denies: back pain or extremity swelling Skin/Breast: Denies: rash or new lesions Neuro: Denies: headache(s), numbness in extremities or weakness in extremities PFSH ED PFSH: Medical History Abscess of finger of right hand Brain bleed Chronic steroid use Encounter for smoking cessation counseling High risk medication use Immunization counseling Joint pain Seropositive rheumatoid arthritis of multiple sites Surgical History H/O hernia repair Family History Other Hypertension Denies family history of Rheumatoid arthritis Diabetes Lupus Cancer Social History Smoking and tobacco status: never smoked Alcohol intake: current Alcohol intake frequency: holidays/special occasions only Alcohol type: beer History of recent travel: No Physical Exam Const: COMMON NORMALS: patient oriented x3 and alert GENERAL APPEARANCE: cooperative and comfortable HENMT: COMMON NORMALS: normocephalic HEAD & SCALP: normocephalic MOUTH: Normal oral and palatal mucosa present THROAT: posterior oropharynx normal and uvula midline Neck/C-Spine: COMMON NORMALS: supple GENERAL: Yes normal visual inspection CERVICAL SPINE: Yes cervical ROM abnormal rotation to the left decreased, rotation to the right decreased and extension decreased, Yes pain with cervical ROM, No Cervical spine tenderness, Yes Paracervical muscle tenderness bilateral, Yes Paracervical spasm bilateral and Yes Trapezius muscle tenderness bilateral Resp: COMMON NORMALS: normal respiratory effort, No retractions, No use of accessory muscles and clear to auscultation bilaterally AUSCULTATION: clear to auscultation bilaterally Cardio: COMMON NORMALS: regular rate, regular rhythm, S1 normal heart sound present, S2 normal heart sound present, No gallops present (Cardio), No clicks present (Cardio), No murmurs present (Cardio) and Peripheral pulses 2+ throughout RATE: regular rate RHYTHM: regular rhythm HEART SOUNDS: S1 normal heart sound present and S2 normal heart sound present PERIPHERAL PULSES: Peripheral pulses 2+ throughout GI: COMMON NORMALS: Normal to inspection, nondistended, normoactive bowel sounds present, Soft to palpation, non-tender and no masses PALPATION: Yes Soft to palpation : COMMON NORMALS: Yes no CVA tenderness BLADDER/KIDNEY EXAM: Yes no CVA tenderness Back/Pelvis: COMMON NORMALS: no CVA tenderness Extremity: COMMON NORMALS: normal to inspection Neuro: COMMON NORMALS: patient oriented x3 SENSORIUM/ORIENTATION: Yes alert GAIT: Yes Normal gait present Skin: GENERAL SKIN EXAM: dry skin Course Vital Signs: Vital signs: Vital Signs Temperature 98.0 F 12/18/21 22:14 Pulse Rate 86 12/18/21 22:32 Respiratory Rate 14 12/18/21 22:32 Blood Pressure 111/79 12/18/21 22:32 Pulse Oximetry 96 12/18/21 22:32 Oxygen Delivery Me thod 12/18/21 22:32 MDM - Back Pain/Injury Medical Decision Making Patient is a 46-year-old male comes to the ED with neck muscle pain and spasms. Patient said he did some heavy lifting at his job tonight before and he woke up with neck pain that worsened throughout the day. He has stiffness and muscle spasms with certain movements. Denies any fall injury or trauma to cause pain. Vitals are stable. Exam of patient shows some paracervical muscle spasms and paracervical muscle tenderness bilaterally. Rest of exam was benign. Patient was given a dose of Toradol and muscle relaxer here in the ED and his symptoms did improve. He was stable for discharge home and diagnosed with neck muscle strain and spasms and sent home with a prescription for Flexeril and Celebrex for pain. Follow-up with his PCP in the next week for reevaluation. Return ED precautions given. Patient understood and agreed with plan. Discharge Plan Discharge Patient Disposition: Home Clinical Impression: Neck muscle spasm Neck muscle strain Qualifiers: Encounter type: initial encounter Qualified Code(s): S16.1XXA - Strain of muscle, fascia and tendon at neck level, initial encounter Condition: Stable Prescriptions: New Celebrex 100 mg capsule 100 mg PO BID PRN (Reason: pain) Qty: 20 0RF cyclobenzaprine 10 mg tablet 10 mg PO BID PRN (Reason: muscle spasm) Qty: 20 0RF No Action Humira Pen 40 mg/0.8 mL pen injector kit See Rx Instructions .ROUTE .COMPLEX Qty: 2 3RF Dose Instruction: inject 40mg (0.8ml) SUBCUTANEOUSLY every 14 DAYS Rx Instructions: inject 40mg (0.8ml) SUBCUTANEOUSLY every 14 DAYS folic acid 1 mg tablet See Rx Instructions .ROUTE .COMPLEX Qty: 90 2RF Dose Instruction: TAKE 1 TABLET BY MOUTH DAILY Rx Instructions: TAKE 1 TABLET BY MOUTH DAILY methotrexate sodium 2.5 mg tablet 15 mg PO .Q7days Qty: 30 3RF prednisone 5 mg tablet 5 mg PO DAILY Qty: 90 1RF Zithromax Z-Narinder 250 mg tablet See Rx Instructions .ROUTE .COMPLEX Qty: 6 0RF Rx Instructions: take 500 mg today (day 1), then 250 mg for 4 days (days 2-5) prednisone 20 mg tablet 20 mg PO DAILY Qty: 7 0RF ProAir HFA 90 mcg/actuation HFA aerosol inhaler 2 inh inhalation Q4H PRN (Reason: shortness of breath or wheezing) Qty: 6.7 0RF Discharge Orders: Discharge ED (Routine); Ordered 12/18/21 Ordered By: Vern Harrington Referrals: Primitivo Holder MD [Primary Care Provider] - Discharge Diet: Regular Discharge Activity: Increase activity as tolerated Patient Instructions: Muscle Spasm (ED), Neck Pain (ED) Activity Restrictions/Additional Instructions: Follow-up with medical provider as directed in the next 5 to 7 days for reevaluation. Apply cold pack on neck muscles to help with symptoms. Stretch neck muscles daily. take medications as prescribed. Return to the ER or your medical provider if condition worsens. Please read and understand discharge instructions. Thank you for choosing [facility] for your healthcare needs today. Please realize this is an emergency room and that we are providing you with a medical screening exam and this may not be complete and all inclusive of all the testing and or work up that you may need to determine your ailment or severity of your illness. It is very important that you follow up as instructed or that you return to the Emergency Department should you have concerns or if your condition changes or worsens in any way. Coding Level of Care Code ED Addressing Machine Operator for Keisha Fwd Exam Comprehensive
[2021-12-18] MEDS: ketorolac 60 mg/2 mL INJ IM (23:19)
[2021-12-18] MEDS: orphenadrine 30 mg/mL Inj 2 mL 60 MG IM (23:20)
== END 2021-12-19 | disposition home or self-care (01) ==
PROVIDERS: Emergency Provider Physician Assistant; PCP Internal Medicine Rheumatology
DX: S16.1XXA Strain of muscle, fascia and tendon at neck level, initial encounter (principal); M62.838 Other muscle spasm; X58.XXXA Exposure to other specified factors, initial encounter
CPT/HCPCS: 96372; 99284; J1885; J2360

== ENCOUNTER 2022-05-14 09:14 | Emergency (ER) | payer SELFPAY ==
[2022-05-14] VITALS (14 sets, daily range): BP systolic 141–150; BP diastolic 86–94; PULSE 73–96; RESP 16–18; TEMP 36.7; O2SAT 95–100; BMI 26.4
--- NOTE | 2022-05-14 10:00 | ECG_ITS ---
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 Measurements Intervals [place] Rate: 81 P: 54 VT: 171 QRS: 44 QRSD: 97 T: 45 QT: 370 QTc: 431 Interpretive Statements SINUS RHYTHM Compared to ECG 06/01/2018 18:44:21 No significant changes Electronically Signed On 05-14-2022 11:43:21 RADIATION TECHNICIAN by Arik Villalobos M.D. [id number]
[2022-05-14 10:07] LABS: Basophils # 0.1 10^3/uL (0.0-0.1); Basophils % 0.4 %; Eosinophils # 0.4 10^3/uL (0.0-0.8); Eosinophils % 3.2 %; Hematocrit 47.7 % (42.0-52.0); Hemoglobin 15.4 g/dL (11.7-16.6); Lymphocytes % 25.8 %; Mean Corpuscular HGB Conc 32.3 g/dL (30.0-36.0); Mean Corpuscular Hemoglobin 27.7 pg (28.0-34.0); Mean Corpuscular Volume 85.8 fl (80-94); Mean Platelet Volume 10.2 fL (7.4-10.4); Monocytes % 8.9 %; Neutrophils # 7.19 10^3/uL (1.8-7.7); Neutrophils % 61.4 %; Nucleated Red Blood Cells % 0 %; Platelet Count 294 10^3/cmm (130-400); Red Blood Count 5.56 10^6/uL (4.1-5.3); Red Cell Distribution Width 13.3 % (12.1-15.1); White Blood Count 11.7 10^3/uL (4.0-10.0)
--- NOTE | 2022-05-14 10:25 | ED_ITS ---
HPI - Extremity Problem General: Chief complaint: Extremity Injury, Upper Stated complaint: cant move arms Time Seen by Provider: 05/14/22 09:38 Source: patient Mode of arrival: ambulatory History of Present Illness: 46-year-old male with a known history of rheumatoid arthritis. He previously was on methotrexate and Humira at this point he has been untreated for some time he had been seeing Dr. Shara b[place] but stopped a few months ago because of financial and logistical reasons. He began having difficulty with a rheumatoid arthritis flare within the last week is gotten progressively worsening to the point now he can barely move his arms he has severe pain at the shoulders in all joints in both arms. He does not have any axial symptoms no significant pain in his back or neck at this point. Not had any fevers sweats or chills he is currently not taking anything for his rheumatoid he had prior been on methotrexate prednisone and Humira. MD Complaint: joint swelling and joint pain Onset (ago): week(s) Pain Consistency: constant Location: upper extremity (Shoulder elbow wrist and hands) Radiation: none Relieving factors: nothing Exacerbating factors: nothing Associated symptoms: Reports arthralgias; Deny chest pain, fever(s) or rash Review of Systems Const: Denies: fever(s), chills, body aches, change in appetite, fatigue or malaise ENMT: Denies: throat pain, ear or mastoid pain, nasal discharge or nasal congestion Card: Denies: chest pain, edema, dyspnea on exertion or orthopnea Resp: Denies: dyspnea, productive cough or non-productive cough GI: Denies: abdominal pain, nausea, vomiting, hematemesis, coffee ground emesis, diarrhea, constipation, bloating, hematochezia or melena : Denies: flank pain, dysuria, urinary frequency or urinary urgency Skin/Breast: Denies: rash or pruritus PFSH ED PFSH: Medical History Abscess of finger of right hand Brain bleed Chronic steroid use Encounter for smoking cessation counseling High risk medication use Immunization counseling Joint pain Seropositive rheumatoid arthritis of multiple sites Surgical History H/O hernia repair Family History Other Hypertension Denies family history of Rheumatoid arthritis Diabetes Lupus Cancer Social History Smoking and tobacco status: never smoked Alcohol intake: current Alcohol intake frequency: holidays/special occasions only Alcohol type: beer History of recent travel: No Physical Exam Const: COMMON NORMALS: no acute distress GENERAL APPEARANCE: cooperative and comfortable ORIENTATION/CONSCIOUSNESS: Yes awake, Yes oriented to person, Yes oriented to place and Yes oriented to time HENMT: COMMON NORMALS: normocephalic, atraumatic and hearing grossly normal bilaterally HEAD & SCALP: normocephalic and atraumatic Resp: COMMON NORMALS: normal respiratory effort, No retractions, No use of accessory muscles and clear to auscultation bilaterally AUSCULTATION: clear to auscultation bilaterally Cardio: COMMON NORMALS: regular rate, regular rhythm and No murmurs present (Cardio) RATE: regular rate RHYTHM: regular rhythm GI: COMMON NORMALS: Soft to palpation and No hepatosplenomegaly present AUSCULTATION: Yes normoactive bowel sounds PALPATION: Yes Soft to palpation, No Tenderness to palpation present (GI), No Guarding due to palpation present (GI) and Yes No hepatosplenomegaly present Extremity: OTHER: Bilateral joint effusions shoulders elbows wrist MP, PIP and DIP joints. Patient unable to perform any active range of motion at the shoulder level Neuro: SENSORIUM/ORIENTATION: Yes oriented to person, Yes oriented to place and Yes oriented to time Skin: COMMON NORMALS: no rashes or lesions noted GENERAL SKIN EXAM: no rashes or lesions noted Course Vital Signs: Vital signs: Vital Signs Temperature 98.0 F 05/14/22 09:34 Pulse Rate 73 05/14/22 11:41 Respiratory Rate 16 05/14/22 11:41 Blood Pressure 141/88 05/14/22 11:41 Pulse Oximetry 99 05/14/22 11:41 Oxygen Delivery Me thod 05/14/22 09:34 MDM - Extremity (Nontraumatic) Medical Decision Making Patient given IV steroids here start on oral steroids after he finishes the oral taper he should continue at 10 mg of prednisone daily. We will also start him back on methotrexate 5 mg q. 7 days. We will have case management set him up to follow-up and reestablish with rheumatology clinic. Medical Records I reviewed the patient's medical records. Lab Data I reviewed the patient's lab results. 05/14/22 10:00 05/14/22 10:00 Laboratory Results WBC 11.7 10^3/uL (4.0-10.0) H 05/14/22 10:00 RBC 5.56 10^6/uL (4.1-5.3) H 05/14/22 10:00 Hgb 15.4 g/dL (11.7-16.6) 05/14/22 10:00 Hct 47.7 % (42.0-52.0) 05/14/22 10:00 MCV 85.8 fl (80-94) 05/14/22 10:00 MCH 27.7 pg (28.0-34.0) L 05/14/22 10:00 MCHC 32.3 g/dL (30.0-36.0) 05/14/22 10:00 RDW 13.3 % (12.1-15.1) 05/14/22 10:00 Plt Count 294 10^3/cmm (130-400) 05/14/22 10:00 MPV 10.2 fL (7.4-10.4) 05/14/22 10:00 Neut % (Auto) 61.4 % 05/14/22 10:00 Lymph % (Auto) 25.8 % 05/14/22 10:00 [place] % (Auto) 8.9 % 05/14/22 10:00 Eos % (Auto) 3.2 % 05/14/22 10:00 Baso % (Auto) 0.4 % 05/14/22 10:00 Neut # (Auto) 7.19 10^3/uL (1.8-7.7) 05/14/22 10:00 Lymph # (Auto) 3.0 10^3/uL (0.8-4.8) 05/14/22 10:00 [place] # (Auto) 1.0 10^3/uL (0.2-0.9) H 05/14/22 10:00 Eos # (Auto) 0.4 10^3/uL (0.0-0.8) 05/14/22 10:00 Baso # (Auto) 0.1 10^3/uL (0.0-0.1) 05/14/22 10:00 Nucleated RBC % (auto) 0 % 05/14/22 10:00 Nucleated RBCs # 0.0 /100WBC 05/14/22 10:00 Sodium 140 mmol/L (136-145) 05/14/22 10:00 Potassium 4.2 mmol/L (3.5-5.1) 05/14/22 10:00 Chloride 101 mmol/L (98-107) 05/14/22 10:00 Carbon Dioxide 27 mmol/L (22-29) 05/14/22 10:00 Anion Gap 16.2 (5-19) 05/14/22 10:00 BUN 11 mg/dL (6-20) 05/14/22 10:00 Creatinine 0.8 mg/dL (0.7-1.2) 05/14/22 10:00 GFR Calculation 103.6 mL/min (90-130) 05/14/22 10:00 Glucose 95 mg/dL (65-115) 05/14/22 10:00 Calculated Osmolality 289 mOsm/kg (285-295) 05/14/22 10:00 Calcium 9.5 mg/dL (8.5-10.5) 05/14/22 10:00 Total Bilirubin 0.3 mg/dL (0.15-1.2) 05/14/22 10:00 AST 18 U/L (0-40) 05/14/22 10:00 ALT 19 U/L (0-41) 05/14/22 10:00 Alkaline Phosphatase 130 U/L (40-130) 05/14/22 10:00 C-Reactive Protein 7.3 mg/L (0.0-4.9) H 05/14/22 10:00 Total Protein 7.2 g/dL (6.6-8.7) 05/14/22 10:00 Albumin 4.7 g/dL (3.5-5.2) 05/14/22 10:00 Globulin 2.5 g/dL (1.3-4.6) 05/14/22 10:00 Discharge Plan Discharge Patient Disposition: Home Clinical Impression: Seropositive rheumatoid arthritis of multiple sites Condition: Stable Prescriptions: New prednisone 20 mg tablet 20 mg PO TID Qty: 15 0RF Rx Instructions: 1 p.o. 3 times daily x3 days, 1 p.o. twice daily x2 days, 1 p.o. daily x2 days prednisone 10 mg tablet 10 mg PO DAILY Qty: 30 0RF Rx Instructions: Began 10 mg daily after steroid taper completed methotrexate sodium 2.5 mg tablet 5 mg PO .Weekly Qty: 30 0RF diclofenac sodium 75 mg tablet,delayed release (DR/EC) 75 mg PO Q12H PRN (Reason: pain) Qty: 20 0RF No Action Humira Pen 40 mg/0.8 mL pen injector kit See Rx Instructions .ROUTE .COMPLEX Qty: 2 3RF Dose Instruction: inject 40mg (0.8ml) SUBCUTANEOUSLY every 14 DAYS Rx Instructions: inject 40mg (0.8ml) SUBCUTANEOUSLY every 14 DAYS folic acid 1 mg tablet See Rx Instructions .ROUTE .COMPLEX Qty: 90 2RF Dose Instruction: TAKE 1 TABLET BY MOUTH DAILY Rx Instructions: TAKE 1 TABLET BY MOUTH DAILY methotrexate sodium 2.5 mg tablet 15 mg PO .Q7days Qty: 30 3RF prednisone 5 mg tablet 5 mg PO DAILY Qty: 90 1RF Zithromax Z-Narinder 250 mg tablet See Rx Instructions .ROUTE .COMPLEX Qty: 6 0RF Rx Instructions: take 500 mg today (day 1), then 250 mg for 4 days (days 2-5) prednisone 20 mg tablet 20 mg PO DAILY Qty: 7 0RF ProAir HFA 90 mcg/actuation HFA aerosol inhaler 2 inh inhalation Q4H PRN (Reason: shortness of breath or wheezing) Qty: 6.7 0RF Celebrex 100 mg capsule 100 mg PO BID PRN (Reason: pain) Qty: 20 0RF cyclobenzaprine 10 mg tablet 10 mg PO BID PRN (Reason: muscle spasm) Qty: 20 0RF Discharge Orders: Discharge ED (Routine); Ordered 05/14/22 Ordered By: Bi Amezcua Discharge Diet: Usual diet Discharge Activity: Increase activity as tolerated Patient Instructions: Opioid Safety, Pain Management Activity Restrictions/Additional Instructions: You are seen today for a flareup of her rheumatoid arthritis and given a dose of IV steroids. You are also given a tapering dose of steroids after you complete this taper start 10 mg of p.o. prednisone daily. You are also given at prescription for methotrexate to restart at 5 mg once a week. You are also given diclofenac to use as needed for joint pain. Case management will make arrangements for you to follow-up with rheumatology clinic to reestablish a treatment plan. Coding Level of Care Code ED Display And Banner Designer for Keisha Blackburn
[2022-05-14 10:32] LABS: Alanine Aminotransferase 19 U/L (0-41); Albumin Level 4.7 g/dL (3.5-5.2); Alkaline Phosphatase 130 U/L (40-130); Anion Gap 16.2 (5-19); Aspartate Amino Transferase 18 U/L (0-40); Blood Urea Nitrogen 11 mg/dL (6-20); C Reactive Protein 7.3 mg/L (0.0-4.9); Calcium 9.5 mg/dL (8.5-10.5); Carbon Dioxide 27 mmol/L (22-29); Chloride 101 mmol/L (98-107); Globulin 2.5 g/dL (1.3-4.6); Glomerular Filtration Rate 103.6 mL/min (90-130); Glucose 95 mg/dL (65-115); Osmolality Calculated 289 mOsm/kg (285-295); Potassium 4.2 mmol/L (3.5-5.1); Sodium 140 mmol/L (136-145); Total Bilirubin 0.3 mg/dL (0.15-1.2); Total Protein 7.2 g/dL (6.6-8.7)
--- NOTE | 2022-05-15 09:53 | DCPLANNER ---
Addendum entered by Nanda Greene 05/28/22 13:36: Patient had a follow up appointment scheduled with rheumatology - patient did attend appointment. Original Note: manager intermediate had message to schedule a follow up appointment for patient with rheumatology. manager intermediate sent patients information to the front office staff at rheumatology. Patients information will be printed and reviewed. Clinic will call patient with appointment information.
== END 2022-05-14 11:43 | disposition home or self-care (01) ==
PROVIDERS: Emergency Provider Family Medicine
DX: M05.9 Rheumatoid arthritis with rheumatoid factor, unspecified (principal)
CPT/HCPCS: 80053; 85025; 86140; 93005; 96374; 99285; J2930

== ENCOUNTER → 2022-08-19 14:36 | Outpatient (BNVA) | payer SELFPAY | PROVIDERS: Visit Provider Internal Medicine Rheumatology | DX: M05.79 Rheumatoid arthritis with rheumatoid factor of multiple sites without organ or systems involvement (principal); Z79.899 Other long term (current) drug therapy; M54.2 Cervicalgia; Z71.89 Other specified counseling; R21 Rash and other nonspecific skin eruption | CPT/HCPCS: 36415; 72040; 80076; 82565; 85025; 86140 ==

== ENCOUNTER 2022-12-30 13:04 | Outpatient (CLI) | payer SELFPAY ==
[2022-12-30 13:21] LABS: Basophils % 0.4 %; Eosinophils # 0.1 10^3/uL (0.0-0.8); Eosinophils % 1.7 %; Lymphocytes # 1.5 10^3/uL (0.8-4.8); Mean Corpuscular HGB Conc 32.7 g/dL (30-55); Mean Corpuscular Hemoglobin 28.8 pg (27-33); Mean Platelet Volume 10.3 fL (7.4-10.4); Monocytes # 0.6 10^3/uL (0.2-0.9); Monocytes % 8.2 %; Neutrophils # 4.64 10^3/uL (1.8-7.7); Neutrophils % 67.6 %; Nucleated Red Blood Cells % 0 %; Platelet Count 242 10^3/cmm (157-399); Red Cell Distribution Width 13.5 % (12.1-15.1); White Blood Count 6.87 10^3/uL (3.29-11.43)
[2022-12-30 13:41] LABS: Alanine Aminotransferase 17 U/L (0-41); Albumin Level 4.6 g/dL (3.5-5.2); Alkaline Phosphatase 85 U/L (40-130); Aspartate Amino Transferase 18 U/L (0-40); Glomerular Filtration Rate 90.1 mL/min (90-130); Total Bilirubin 0.4 mg/dL (0.15-1.2); Total Protein 6.6 g/dL (6.6-8.7)
== END 2022-12-30 13:05 | disposition home or self-care (01) ==
PROVIDERS: PCP Internal Medicine Rheumatology; Visit Provider Internal Medicine Rheumatology
DX: M05.79 Rheumatoid arthritis with rheumatoid factor of multiple sites without organ or systems involvement (principal); Z79.899 Other long term (current) drug therapy
CPT/HCPCS: 36415; 80076; 82565; 85025; 86140

== ENCOUNTER 2023-01-27 18:00 | Emergency (ER) | payer SELFPAY ==
[2023-01-27 18:02] VITALS: BP 155/98; PULSE 83; RESP 16; TEMP 36.4; O2SAT 97; BMI 26.4
--- NOTE | 2023-01-27 18:04 | ECG_ITS ---
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 Measurements Intervals [place] Rate: 88 P: 57 NE: 172 QRS: 56 QRSD: 110 T: 49 QT: 367 QTc: 446 Interpretive Statements SINUS RHYTHM Compared to ECG 05/14/2022 10:00:48 No significant changes Electronically Signed On 01-27-2023 23:32:16 CDT by Arik Villalobos M.D. [id number]
[2023-01-27 18:08] VITALS: BP 141/96; PULSE 66; RESP 16; O2SAT 99
--- NOTE | 2023-01-27 18:23 | XRR_ITS ---
PROCEDURE INFORMATION: Exam: XR Chest Exam date and time: 01/27/2023 6:29 PM Age: 47 years old Clinical indication: Other: Chest pain; Additional info: Cp TECHNIQUE: Imaging protocol: Radiologic exam of the chest. Views: 1 view. COMPARISON: CR XR chest 1V portable [id number] 03/19/2021 6:08 PM FINDINGS: Lungs: Unremarkable. No consolidation. Pleural spaces: Unremarkable. No pleural effusion. No pneumothorax. Heart/Mediastinum: Unremarkable. No cardiomegaly. Bones/joints: Unremarkable. XR/XR chest 1V portable [id number] IMPRESSION: No acute findings.
--- NOTE | 2023-01-27 18:24 | ED_ITS ---
HPI - Chest Pain General: Chief Complaint: Chest Pain Stated Complaint: chest pain Time Seen by Provider: 01/27/23 18:12 Source: patient Mode of arrival: ambulatory Limitations: no limitations History of Present Illness: 47-year-old male states that he had walked into a wall 3 days ago he states he did hit his right chest he states that since then he has been having some sharp right-sided chest pain since then. He states the pain is worse with movement and palpation he denies any cough or fevers. States he had some dyspnea the pain is worse with deep breaths. Associated symptoms: Deny abdominal pain, dyspnea, fever(s), nausea or vomiting Review of Systems Const: Denies: fever(s), chills, body aches or change in appetite Eyes: Denies: blurry vision or eye discomfort ENMT: Denies: throat pain or dental pain Card: Reports: chest pain Resp: Denies: dyspnea GI: Denies: abdominal pain, nausea, vomiting or diarrhea Musc: Denies: neck pain or back pain Skin/Breast: Denies: rash Neuro: Denies: headache(s) PFSH ED PFSH: Medical History Abscess of finger of right hand Brain bleed Chronic steroid use Encounter for smoking cessation counseling High risk medication use Immunization counseling Joint pain Seropositive rheumatoid arthritis of multiple sites Skin rash Surgical History H/O hernia repair Family History Other Hypertension Denies family history of Rheumatoid arthritis Diabetes Lupus Cancer Social History Smoking and tobacco/nicotine status: never used tobacco/nicotine Alcohol intake: current Alcohol intake frequency: holidays/special occasions only Alcohol type: beer Substance/Drug Use: current Substance/Drug use frequency: Special occassions /opportunity only Physical Exam Const: COMMON NORMALS: no acute distress, patient oriented x3 and healthy appearing HENMT: COMMON NORMALS: normocephalic and atraumatic HEAD & SCALP: normocephalic and atraumatic Neck/C-Spine: COMMON NORMALS: full ROM and supple Chest: COMMONS NORMALS: normal inspection of the chest OTHER: point tender over right chest wall reproduces pain Resp: COMMON NORMALS: normal respiratory effort, No retractions, No use of accessory muscles and clear to auscultation bilaterally AUSCULTATION: clear to auscultation bilaterally Cardio: COMMON NORMALS: regular rate, regular rhythm and No murmurs present (Cardio) RATE: regular rate RHYTHM: regular rhythm GI: COMMON NORMALS: Normal to inspection, nondistended, normoactive bowel sounds present, Soft to palpation, non-tender and no masses PALPATION: Yes Soft to palpation Extremity: COMMON NORMALS: normal to inspection and full ROM Neuro: COMMON NORMALS: patient oriented x3, moves all extremities and no focal motor deficits Psych: COMMON NORMALS: mental status grossly normal, Normal thought process present and cooperative THOUGHT PROCESS: Normal thought process present Skin: COMMON NORMALS: no rashes or lesions noted and no wounds GENERAL SKIN EXAM: no rashes or lesions noted Course Vital Signs: Vital signs: Vital Signs Temperature 97.6 F 01/27/23 18:02 Pulse Rate 60 01/27/23 19:37 Respiratory Rate 16 01/27/23 19:37 Blood Pressure 141/96 01/27/23 18:57 Pulse Oximetry 97 01/27/23 19:37 Oxygen Delivery Me thod Room Air 01/27/23 18:57 MDM - Chest Pain Medical Decision Making Patient presents for chest pain is likely chest wall pain he is point tender to the right side of his chest reproduces his pain his troponin here is normal has been having pain for days his x-ray is normal he has no signs of dissection or pulm embolism he has no signs of acute coronary syndrome. Medical Records I reviewed the patient's medical records. Lab Data I reviewed the patient's lab results. 01/27/23 18:46 01/27/23 18:46 Radiology Impressions Chest X-Ray 01/27/23 18:23 IMPRESSION: No acute findings. Laboratory Results WBC 8.14 10^3/uL (3.29-11.43) 01/27/23 18:46 RBC 5.06 10^6/uL (3.85-5.65) 01/27/23 18:46 Hgb 14.40 g/dL (11.27-16.99) 01/27/23 18:46 Hct 44.5 % (37-53) 01/27/23 18:46 MCV 87.9 fl (82-101) 01/27/23 18:46 MCH 28.5 pg (27-33) 01/27/23 18:46 MCHC 32.4 g/dL (30-55) 01/27/23 18:46 RDW 13.2 % (12.1-15.1) 01/27/23 18:46 Plt Count 237 10^3/cmm (157-399) 01/27/23 18:46 MPV 10.9 fL (7.4-10.4) H 01/27/23 18:46 Neut % (Auto) 46.3 % 01/27/23 18:46 Lymph % (Auto) 41.2 % 01/27/23 18:46 [place] % (Auto) 10.0 % 01/27/23 18:46 Eos % (Auto) 1.8 % 01/27/23 18:46 Baso % (Auto) 0.5 % 01/27/23 18:46 Neut # (Auto) 3.77 10^3/uL (1.8-7.7) 01/27/23 18:46 Lymph # (Auto) 3.4 10^3/uL (0.8-4.8) 01/27/23 18:46 [place] # (Auto) 0.8 10^3/uL (0.2-0.9) 01/27/23 18:46 Eos # (Auto) 0.2 10^3/uL (0.0-0.8) 01/27/23 18:46 Baso # (Auto) 0.0 10^3/uL (0.0-0.1) 01/27/23 18:46 Nucleated RBC % (auto) 0 % 01/27/23 18:46 Nucleated RBCs # 0.0 /100WBC 01/27/23 18:46 Sodium 140 mmol/L (136-145) 01/27/23 18:46 Potassium 4.1 mmol/L (3.5-5.1) 01/27/23 18:46 Chloride 104 mmol/L (98-107) 01/27/23 18:46 Carbon Dioxide 25 mmol/L (22-29) 01/27/23 18:46 Anion Gap 15.1 (5-19) 01/27/23 18:46 BUN 12 mg/dL (6-20) 01/27/23 18:46 Creatinine 0.8 mg/dL (0.7-1.2) 01/27/23 18:46 GFR Calculation 103.2 mL/min (90-130) 01/27/23 18:46 Glucose 82 mg/dL (65-115) 01/27/23 18:46 Calculated Osmolality 289 mOsm/kg (285-295) 01/27/23 18:46 Calcium 9.2 mg/dL (8.5-10.5) 01/27/23 18:46 Total Bilirubin 0.4 mg/dL (0.15-1.2) 01/27/23 18:46 AST 12 U/L (0-40) 01/27/23 18:46 ALT 12 U/L (0-41) 01/27/23 18:46 Alkaline Phosphatase 90 U/L (40-130) 01/27/23 18:46 Troponin T Baseline < 6 ng/L (0-15) 01/27/23 18:46 Total Protein 6.5 g/dL (6.6-8.7) L 01/27/23 18:46 Albumin 4.7 g/dL (3.5-5.2) 01/27/23 18:46 Globulin 1.8 g/dL (1.3-4.6) 01/27/23 18:46 All radiology interpretation(s) finalized by discharge EKG Data EKG 1: I personally reviewed and interpreted this EKG as follows: EKG interpretation date: 01/27/23 EKG interpretation time: 18:04 Interpretation: nsr hr [address] or t wave abnormalities qrs 110 qtc 413 Discharge Plan Discharge Patient Disposition: Home Clinical Impression: Chest wall pain Condition: Stable Prescriptions: New Naprosyn 500 mg tablet 500 mg PO BID PRN (Reason: pain) Qty: 20 0RF No Action prednisone 10 mg tablet 10 mg PO DAILY Qty: 90 1RF Rx Instructions: alternate 10mg daily with 5mg daily [id number] then stay on 5mg daily clobetasol 0.05 % cream 1 applic topical BID 14 Days Qty: 30 0RF leflunomide 20 mg tablet 20 mg PO DAILY Qty: 30 3RF Enbrel 50 mg/mL (1 mL) syringe 50 mg SUBCUT .Q7days Qty: 4 3RF ProAir HFA 90 mcg/actuation HFA aerosol inhaler 2 inh inhalation Q4H PRN (Reason: shortness of breath or wheezing) Qty: 6.7 0RF Celebrex 100 mg capsule 100 mg PO BID PRN (Reason: pain) Qty: 20 0RF cyclobenzaprine 10 mg tablet 10 mg PO BID PRN (Reason: muscle spasm) Qty: 20 0RF diclofenac sodium 75 mg tablet,delayed release (DR/EC) 75 mg PO Q12H PRN (Reason: pain) Qty: 20 0RF Discharge Orders: Discharge ED (Routine); Ordered 01/27/23 Ordered By: Nilesh Gaitan Referrals: Primitivo Holder MD [Primary Care Provider] - 1-3 days Discharge Diet: Advance as tolerated Discharge Activity: Resume usual activity Patient Instructions: Chest Pain (ED) Coding Level of Care Code ED Program Specialist for Keisha Blackburn
[2023-01-27 18:57] VITALS: BP 141/96; PULSE 62; RESP 14; O2SAT 94
[2023-01-27 19:21] LABS: Basophils % 0.5 %; Eosinophils # 0.2 10^3/uL (0.0-0.8); Eosinophils % 1.8 %; Hematocrit 44.5 % (37-53); Lymphocytes # 3.4 10^3/uL (0.8-4.8); Lymphocytes % 41.2 %; Mean Corpuscular HGB Conc 32.4 g/dL (30-55); Mean Corpuscular Hemoglobin 28.5 pg (27-33); Mean Corpuscular Volume 87.9 fl (82-101); Mean Platelet Volume 10.9 fL (7.4-10.4); Monocytes # 0.8 10^3/uL (0.2-0.9); Neutrophils # 3.77 10^3/uL (1.8-7.7); Neutrophils % 46.3 %; Nucleated Red Blood Cells % 0 %; Platelet Count 237 10^3/cmm (157-399); Red Blood Count 5.06 10^6/uL (3.85-5.65); Red Cell Distribution Width 13.2 % (12.1-15.1); White Blood Count 8.14 10^3/uL (3.29-11.43)
[2023-01-27 19:37] VITALS: PULSE 60; RESP 16; O2SAT 97
[2023-01-27 19:43] LABS: Troponin(5th) Baseline < 6 ng/L (0-15)
[2023-01-27 19:46] LABS: Alanine Aminotransferase 12 U/L (0-41); Albumin Level 4.7 g/dL (3.5-5.2); Alkaline Phosphatase 90 U/L (40-130); Anion Gap 15.1 (5-19); Aspartate Amino Transferase 12 U/L (0-40); Blood Urea Nitrogen 12 mg/dL (6-20); Calcium 9.2 mg/dL (8.5-10.5); Carbon Dioxide 25 mmol/L (22-29); Chloride 104 mmol/L (98-107); Globulin 1.8 g/dL (1.3-4.6); Glomerular Filtration Rate 103.2 mL/min (90-130); Glucose 82 mg/dL (65-115); Osmolality Calculated 289 mOsm/kg (285-295); Potassium 4.1 mmol/L (3.5-5.1); Sodium 140 mmol/L (136-145); Total Bilirubin 0.4 mg/dL (0.15-1.2); Total Protein 6.5 g/dL (6.6-8.7)
[2023-01-27 20:30] VITALS: BP 110/85; PULSE 64; RESP 16; O2SAT 96
== END 2023-01-27 20:31 | disposition home or self-care (01) ==
PROVIDERS: Emergency Provider Emergency Medicine; PCP Internal Medicine Rheumatology
DX: R07.89 Other chest pain (principal)
CPT/HCPCS: 36415; 71045; 80053; 84484; 85025; 93005; 99285

== ENCOUNTER → 2023-05-13 15:14 | Outpatient (BNVA) | payer SELFPAY | PROVIDERS: PCP Internal Medicine Rheumatology; Visit Provider Internal Medicine Rheumatology | DX: M05.79 Rheumatoid arthritis with rheumatoid factor of multiple sites without organ or systems involvement (principal); Z79.899 Other long term (current) drug therapy | CPT/HCPCS: 80076; 82306; 82565; 84439; 84443; 85025; 86140 ==

== ENCOUNTER 2023-09-08 17:41 | Emergency (ER) | payer SELFPAY ==
[2023-09-08 18:06] VITALS: BP 152/86; PULSE 80; RESP 18; TEMP 36.6; O2SAT 96
[2023-09-08 18:41] VITALS: BP 168/102; PULSE 71; RESP 17; O2SAT 96
--- NOTE | 2023-09-08 18:41 | XRR_ITS ---
PROCEDURE INFORMATION: Exam: XR Chest Exam date and time: 09/08/2023 6:44 PM Age: 48 years old Clinical indication: Cough and fever; Additional info: Fever, cough TECHNIQUE: Imaging protocol: Radiologic exam of the chest. Views: 1 view. COMPARISON: CR (CHEST, ) 01/27/2023 6:29 PM FINDINGS: Lungs: Unremarkable. No consolidation or mass. Pleural spaces: Unremarkable. No pleural effusion. No pneumothorax. Heart/Mediastinum: Unremarkable. No cardiomegaly. Bones/joints: Unremarkable. XR/XR chest 1V portable [id number] IMPRESSION: No acute findings.
[2023-09-08 19:07] LABS: Basophils % 0.3 %; Eosinophils # 0.1 10^3/uL (0.0-0.8); Eosinophils % 0.8 %; Hematocrit 42.4 % (37-53); Lymphocytes # 2.7 10^3/uL (0.8-4.8); Lymphocytes % 25.7 %; Mean Corpuscular HGB Conc 32.8 g/dL (30-55); Mean Corpuscular Hemoglobin 28.4 pg (27-33); Mean Corpuscular Volume 86.7 fl (82-101); Mean Platelet Volume 10.3 fL (7.4-10.4); Monocytes # 0.9 10^3/uL (0.2-0.9); Monocytes % 8.7 %; Neutrophils # 6.82 10^3/uL (1.8-7.7); Neutrophils % 64.2 %; Nucleated Red Blood Cells % 0 %; Platelet Count 261 10^3/cmm (157-399); Red Blood Count 4.89 10^6/uL (3.85-5.65); Red Cell Distribution Width 14.7 % (12.1-15.1)
[2023-09-08 19:08] VITALS: PULSE 64; RESP 18; O2SAT 96
[2023-09-08] MEDS: ipratropium-albuterol 3 mL Neb INHALATION (19:08)
[2023-09-08] MEDS: albuterol 2.5 mg/3 mL Neb INHALATION (19:08)
--- NOTE | 2023-09-08 19:09 | ED_ITS ---
HPI - SOB/Dyspnea 2 General: Chief Complaint: Shortness of Breath/Dyspnea Stated Complaint: sob, cough, headache Time Seen by Provider: 09/08/23 18:39 History of Present Illness: HPI Narrative: 48-year-old man with a history of tobacc o dependence and rheumatoid arthritis on chronic immunosuppression who presents emergency room with cough and shortness of breath. He says has been going on for about 3 weeks. He has had some pleuritic type chest pain. Continued cough. Some shortness of breath. No altered mental status. No focal motor deficits. No nausea or vomiting. No known fevers. Review of Systems 2 Narrative: Constitutional symptoms: Negative except as documented in HPI. Skin symptoms: Negative except as documented in HPI. Eye symptoms: Negative except as documented in HPI. ENMT symptoms: Negative except as documented in HPI. Respiratory symptoms: Negative except as documented in HPI. Cardiovascular symptoms: Negative except as documented in HPI. Gastrointestinal symptoms: Negative except as documented in HPI. Genitourinary symptoms: Negative except as documented in HPI. Musculoskeletal symptoms: Negative except as documented in HPI. Neurologic symptoms: Negative except as documented in HPI. Psychiatric symptoms: Negative except as documented in HPI. Endocrine symptoms: Negative except as documented in HPI. PFSH ED 2 PFSH: Medical History Skin rash Chronic steroid use Encounter for smoking cessation counseling Immunization counseling High risk medication use Abscess of finger of right hand Seropositive rheumatoid arthritis of multiple sites Joint pain Brain bleed Surgical History H/O hernia repair Family History Other Hypertension Denies family history of Rheumatoid arthritis Diabetes Lupus Cancer Social History Smoking and tobacco/nicotine status: never used tobacco/nicotine Alcohol intake: current Alcohol intake frequency: holidays/special occasions only Alcohol type: beer Substance/Drug Use: current Substance/Drug use frequency: Special occassions/opportunity only Physical Exam 2 Narrative: EXAM NARRATIVE: General: Alert, no acute distress. Skin: Warm, dry. Head: Normocephalic, atraumatic. Neck: Supple, trachea midline. Eye: Extraocular movements are intact. Ears, nose, mouth and throat: Oral mucosa moist. Cardiovascular: Regular rate and rhythm, Normal peripheral perfusion. Respiratory: some expiratory wheeze, mild increased wob, breath sounds are equal, Symmetrical chest wall expansion. Gastrointestinal: Soft, Nontender, Non distended, Normal bowel sounds. Musculoskeletal: Normal ROM, no deformity. Neurological: Alert and oriented to person, place, time, and situation, No focal neurological deficit observed. Psychiatric: Cooperative, appropriate mood & affect. Course 2 Vital Signs: Vital signs: Vital Signs Temperature 97.9 F 09/08/23 18:06 Pulse Rate 67 09/08/23 19:13 Respiratory Rate 18 09/08/23 19:13 Blood Pressure 148/95 09/08/23 19:21 Pulse Oximetry 94 09/08/23 19:21 Oxygen Delivery Me thod Room Air 09/08/23 19:21 MDM - SOB/Dyspnea Medical Decision Making Differential diagnosis for patient with shortness of breath includes but is not limited to and based on the above HPI, review of systems and physical exam: Pneumonia. Bronchitis. Asthma or COPD with acute exacerbation. Acute coronary syndrome / AL. Pulmonary embolism. Anxiety. Congestive heart failure. Viral infections including influenza and Covid-19. Atrial fibrillation. Anxiety. Pleural effusion. Pneumothorax. Workup: Lab work, chest X-ray and EKG ordered to evaluate, rule in and rule out above pathologies Patient declined EKG. Chest x-ray: No acute process. No infiltrate. No pneumothorax. No cardiomegaly. This was reviewed and interpreted by myself the ER physician. Lab Review: Laboratory results were reviewed and interpreted by myself the emergency room physician. No leukocytosis. No anemia. Normal renal function. I reviewed the patient's medical record. Reexamination: Patient remained stable. Somewhat improved with breathing treatments and steroids. No increased work of breathing at this time. No altered mental status. No focal motor deficits. Assessment and plan: Upper respiratory infection Tobacco dependence ? DuoNeb and albuterol updrafts. IV Solu-Medrol. - Discharged home - Discussed plan with patient. Answered any questions. - Evaluation and treatment of this problem were appropriate in the emergency setting. I spent 3-4 minutes talking to the patient about tobacco cessation. We discussed the risk associated with tobacco use and the importance of stopping tobacco use. The patient seems receptive to the information. Lab Data 09/08/23 18:53 09/08/23 18:53 Labs/Radiology: Radiology Impressions Chest X-Ray 09/08/23 18:41 IMPRESSION: No acute findings. Laboratory Results WBC 10.60 10^3/uL (3.29-11.43) 09/08/23 18:53 RBC 4.89 10^6/uL (3.85-5.65) 09/08/23 18:53 Hgb 13.90 g/dL (11.27-16.99) 09/08/23 18:53 Hct 42.4 % (37-53) 09/08/23 18:53 MCV 86.7 fl (82-101) 09/08/23 18:53 MCH 28.4 pg (27-33) 09/08/23 18:53 MCHC 32.8 g/dL (30-55) 09/08/23 18:53 RDW 14.7 % (12.1-15.1) 09/08/23 18:53 Plt Count 261 10^3/cmm (157-399) 09/08/23 18:53 MPV 10.3 fL (7.4-10.4) 09/08/23 18:53 Neut % (Auto) 64.2 % 09/08/23 18:53 Lymph % (Auto) 25.7 % 09/08/23 18:53 [place] % (Auto) 8.7 % 09/08/23 18:53 Eos % (Auto) 0.8 % 09/08/23 18:53 Baso % (Auto) 0.3 % 09/08/23 18:53 Neut # (Auto) 6.82 10^3/uL (1.8-7.7) 09/08/23 18:53 Lymph # (Auto) 2.7 10^3/uL (0.8-4.8) 09/08/23 18:53 [place] # (Auto) 0.9 10^3/uL (0.2-0.9) 09/08/23 18:53 Eos # (Auto) 0.1 10^3/uL (0.0-0.8) 09/08/23 18:53 Baso # (Auto) 0.0 10^3/uL (0.0-0.1) 09/08/23 18:53 Nucleated RBC % (auto) 0 % 09/08/23 18:53 Nucleated RBCs # 0.0 /100WBC 09/08/23 18:53 Sodium 141 mmol/L (136-145) 09/08/23 18:53 Potassium 3.9 mmol/L (3.5-5.1) 09/08/23 18:53 Chloride 105 mmol/L (98-107) 09/08/23 18:53 Carbon Dioxide 25 mmol/L (22-29) 09/08/23 18:53 Anion Gap 14.9 (5-19) 09/08/23 18:53 BUN 10 mg/dL (6-20) 09/08/23 18:53 Creatinine 0.7 mg/dL (0.7-1.2) 09/08/23 18:53 GFR Calculation 119.9 mL/min (90-130) 09/08/23 18:53 Glucose 84 mg/dL (65-115) 09/08/23 18:53 Calculated Osmolality 290 mOsm/kg (285-295) 09/08/23 18:53 Calcium 8.9 mg/dL (8.5-10.5) 09/08/23 18:53 Total Bilirubin 0.2 mg/dL (0.15-1.2) 09/08/23 18:53 AST 18 U/L (0-40) 09/08/23 18:53 ALT 26 U/L (0-41) 09/08/23 18:53 Alkaline Phosphatase 86 U/L (40-130) 09/08/23 18:53 C-Reactive Protein 3.0 mg/L (0.0-4.9) 09/08/23 18:53 Total Protein 7.1 g/dL (6.6-8.7) 09/08/23 18:53 Albumin 4.7 g/dL (3.5-5.2) 09/08/23 18:53 Globulin 2.4 g/dL (1.3-4.6) 09/08/23 18:53 All radiology interpretation(s) finalized by discharge Discharge Plan Discharge Patient Disposition: Home Clinical Impression: Tobacco dependence Upper respiratory infection Qualifiers: URI type: unspecified URI Qualified Code(s): J06.9 - Acute upper respiratory infection, unspecified Condition: Stable Prescriptions: New doxycycline hyclate 100 mg capsule 100 mg PO BID 7 Days Qty: 14 0RF prednisone 20 mg tablet 60 mg PO DAILY Qty: 20 0RF Rx Instructions: 3 tabs (60 mg) x 3 days. 2 tabs (40 mg) x 3 days. 1 tab (20 mg) x 3 days. 1/2 tab (10 mg) x 4 days benzonatate 200 mg capsule 200 mg PO TID PRN (Reason: cough) Qty: 30 0RF No Action leflunomide 20 mg tablet 20 mg PO DAILY Qty: 90 1RF prednisone 10 mg tablet 10 mg PO DAILY Qty: 90 1RF Rinvoq 15 mg tablet extended release 24 hr 15 mg PO DAILY Qty: 30 3RF clobetasol 0.05 % cream 1 applic topical BID Qty: 60 1RF ProAir HFA 90 mcg/actuation HFA aerosol inhaler 2 inh inhalation Q4H PRN (Reason: shortness of breath or wheezing) Qty: 6.7 0RF Celebrex 100 mg capsule 100 mg PO BID PRN (Reason: pain) Qty: 20 0RF cyclobenzaprine 10 mg tablet 10 mg PO BID PRN (Reason: muscle spasm) Qty: 20 0RF diclofenac sodium 75 mg tablet,delayed release (DR/EC) 75 mg PO Q12H PRN (Reason: pain) Qty: 20 0RF Naprosyn 500 mg tablet 500 mg PO BID PRN (Reason: pain) Qty: 20 0RF Discharge Orders: Discharge ED (Routine); Ordered 09/08/23 Ordered By: Sita Reeves Referrals: Primitivo Holder MD [Primary Care Provider] - Discharge Diet: Usual diet Discharge Activity: Increase activity as tolerated Patient Instructions: How to Stop Smoking (ED), Upper Respiratory Infection (ED) Activity Restrictions/Additional Instructions: Thank you for choosing [facility] for your healthcare needs today. Please realize this is an emergency room and that we are providing you with a medical screening exam and this may not be complete and all inclusive of all the testing and or work up that you may need to determine your ailment or severity of your illness. You have been screened and evaluated and felt safe for discharge. Health conditions do change or evolve sometimes and as such it is important that you follow up with your Primary Doctor to be re checked, 3-5 days is a general good time frame for follow up. You are always welcome to return to the ED for re assessment if your symptoms are worsening or you have new concerns Coding Level of Care Code ED Preparator for Keisha Blackburn
[2023-09-08 19:13] VITALS: PULSE 67; RESP 18; O2SAT 98
[2023-09-08 19:16] LABS: Alanine Aminotransferase 26 U/L (0-41); Albumin Level 4.7 g/dL (3.5-5.2); Alkaline Phosphatase 86 U/L (40-130); Anion Gap 14.9 (5-19); Aspartate Amino Transferase 18 U/L (0-40); Blood Urea Nitrogen 10 mg/dL (6-20); Calcium 8.9 mg/dL (8.5-10.5); Carbon Dioxide 25 mmol/L (22-29); Chloride 105 mmol/L (98-107); Creatinine Clr Calc Pharmacy 143.8183; Globulin 2.4 g/dL (1.3-4.6); Glomerular Filtration Rate 119.9 mL/min (90-130); Glucose 84 mg/dL (65-115); Osmolality Calculated 290 mOsm/kg (285-295); Potassium 3.9 mmol/L (3.5-5.1); Sodium 141 mmol/L (136-145); Total Bilirubin 0.2 mg/dL (0.15-1.2); Total Protein 7.1 g/dL (6.6-8.7)
[2023-09-08 19:21] VITALS: BP 148/95; O2SAT 94
[2023-09-08 19:30] VITALS: BP 144/83; PULSE 70; O2SAT 95
[2023-09-08] MEDS: methylPREDNISolone sod succ 125 mg/2 mL INJ IVP (19:34)
== END 2023-09-08 19:51 | disposition home or self-care (01) ==
PROVIDERS: Emergency Provider Emergency Medicine; PCP Internal Medicine Rheumatology
DX: J06.9 Acute upper respiratory infection, unspecified (principal); F17.200 Nicotine dependence, unspecified, uncomplicated
CPT/HCPCS: 71045; 80053; 85025; 86140; 94640; 96374; 99284; J2919; J7613

== ENCOUNTER 2023-12-05 17:14 | Emergency (ER) | payer SELFPAY ==
[2023-12-05 17:23] VITALS: BP 137/86; PULSE 82; RESP 16; TEMP 36.9; O2SAT 99; BMI 27.4
--- NOTE | 2023-12-05 17:47 | W.ED.SKABFB ---
HPI - Skin/Abscess/Foreign Bdy General: Chief complaint: Skin/Abscess/Foreign Body Stated complaint: cyst on chest Time Seen by Provider: 12/05/23 17:46 History of Present Illness: 28-year-old male presents emergency room with a cyst on the chest just left of the midline superficial appears to have originated from shaving his chest. He has several other smaller noninfected follicular cyst they are very mildly inflamed the 1 of concern is approximately a centimeter in diameter indurated and tender to touch. Associated symptoms: Deny chills or fever(s) Related Data Previous Rx's Medication Instructions Recorded albuterol sulfate 90 mcg/actuation 2 inh inhalation Q4H PRN shortness 06/09/21 aerosol inhaler (ProAir HFA) of breath or wheezing #6.7 grams cyclobenzaprine 10 mg tablet 10 mg PO BID PRN muscle spasm #20 12/18/21 tabs diclofenac sodium 75 mg 75 mg PO Q12H PRN pain #20 tabs 05/14/22 tablet,delayed release clobetasol 0.05 % topical cream 1 applic topical BID #60 grams 07/23/23 leflunomide 20 mg tablet 20 mg PO DAILY #90 tabs 09/23/23 prednisone 5 mg tablet 5 mg PO DAILY #90 tabs 09/23/23 upadacitinib 15 mg tablet,extended 15 mg PO DAILY #30 tabs 09/23/23 release 24 hr (Rinvoq) sulfamethoxazole 800 1 tab PO BID 7 days #14 tabs 12/05/23 mg-trimethoprim 160 mg tablet (Bactrim DS) Allergies Allergy/AdvReac Type Severity Reaction Status Date / Time No Known Allergies Allergy Verified 09/23/23 13:37 Review of Systems Const: Denies: fever(s) or chills Card: Denies: chest pain Resp: Denies: dyspnea GI: Denies: abdominal pain : Denies: dysuria, urinary frequency or urinary urgency Musc: Denies: neck pain or back pain Skin/Breast: Denies: rash PFSH ED PFSH: Medical History Skin rash Chronic steroid use Encounter for smoking cessation counseling Immunization counseling High risk medication use Abscess of finger of right hand Seropositive rheumatoid arthritis of multiple sites Joint pain Brain bleed Surgical History H/O hernia repair Family History Other Hypertension Denies family history of Rheumatoid arthritis Diabetes Lupus Cancer Social History Smoking and tobacco/nicotine status: never used tobacco/nicotine Alcohol intake: current Alcohol intake frequency: holidays/special occasions only Alcohol type: beer Substance/Drug Use: current Substance/Drug use frequency: Special occassions/opportunity only Physical Exam Const: COMMON NORMALS: no acute distress GENERAL APPEARANCE: cooperative and comfortable ORIENTATION/CONSCIOUSNESS: Yes awake, Yes oriented to person, Yes oriented to place and Yes oriented to time HENMT: COMMON NORMALS: normocephalic, atraumatic and hearing grossly normal bilaterally HEAD & SCALP: normocephalic and atraumatic Chest: OTHER: Mildly red and inflamed area slightly prominent on the chest just below the nipple line on the left. Bedside ultrasound there is no fluid collection present no pointing or drainage from the wound. Patient practices personal shaving of the chest. Has other smaller follicular infections on the chest wall Resp: COMMON NORMALS: normal respiratory effort, No retractions, No use of accessory muscles and clear to auscultation bilaterally AUSCULTATION: clear to auscultation bilaterally Cardio: COMMON NORMALS: regular rate, regular rhythm and No murmurs present (Cardio) RATE: regular rate RHYTHM: regular rhythm Extremity: COMMON NORMALS: normal to inspection, capillary refill normal, no clubbing, cyanosis or edema, no calf tenderness and no pedal edema Neuro: SENSORIUM/ORIENTATION: Yes oriented to person, Yes oriented to place and Yes oriented to time Skin: COMMON NORMALS: no rashes or lesions noted GENERAL SKIN EXAM: no rashes or lesions noted Course Vital Signs: Vital signs: Vital Signs Temperature 98.5 F 12/05/23 17:23 Pulse Rate 85 12/05/23 18:28 Respiratory Rate 16 12/05/23 17:23 Blood Pressure 132/74 12/05/23 18:28 Pulse Oximetry 99 12/05/23 18:28 Oxygen Delivery Me thod Room Air 12/05/23 17:23 MDM - Skin/Abscess/Foreign Bdy Medicial Decision Making No drainable lesion at this time after review with bedside ultrasound. Will start on Bactrim have him follow-up with his primary care doctor if worsens or changes or develops fever return to the emergency room. No radiology studies performed this visit Discharge Plan Discharge Patient Disposition: Home Clinical Impression: Abscess of skin or subcutaneous tissue Condition: Stable Prescriptions: New Bactrim DS 800-160 mg tablet 1 tab PO BID 7 Days Qty: 14 0RF No Action leflunomide 20 mg tablet 20 mg PO DAILY Qty: 90 1RF Rinvoq 15 mg tablet extended release 24 hr 15 mg PO DAILY Qty: 30 5RF prednisone 5 mg tablet 5 mg PO DAILY Qty: 90 1RF clobetasol 0.05 % cream 1 applic topical BID Qty: 60 1RF ProAir HFA 90 mcg/actuation HFA aerosol inhaler 2 inh inhalation Q4H PRN (Reason: shortness of breath or wheezing) Qty: 6.7 0RF cyclobenzaprine 10 mg tablet 10 mg PO BID PRN (Reason: muscle spasm) Qty: 20 0RF diclofenac sodium 75 mg tablet,delayed release (DR/EC) 75 mg PO Q12H PRN (Reason: pain) Qty: 20 0RF Discharge Orders: Discharge ED (Routine); Ordered 12/05/23 Ordered By: Bi Amezcua Referrals: Primitivo Holder MD [Primary Care Provider] - Discharge Diet: Usual diet Discharge Activity: Resume usual activity Patient Instructions: Cellulitis (ED), Opioid Safety, Pain Management Activity Restrictions/Additional Instructions: Thank you for choosing [facility] for your healthcare needs today. It is very important that you follow up as instructed or that you return to the Emergency Department should you have concerns or if your condition changes or worsens in any way. Coding Level of Care Code ED Technology Intern for Keisha Blackburn
[2023-12-05 18:28] VITALS: BP 132/74; PULSE 85; O2SAT 99
== END 2023-12-05 18:32 | disposition home or self-care (01) ==
PROVIDERS: Emergency Provider Family Medicine; PCP Internal Medicine Rheumatology
DX: L02.213 Cutaneous abscess of chest wall (principal)
CPT/HCPCS: 99283

== ENCOUNTER 2024-01-02 13:30 | Outpatient (CLI) | payer SELFPAY ==
[2024-01-02 13:43] LABS: Basophils % 0.4 %; Eosinophils # 0.2 10^3/uL (0.0-0.8); Eosinophils % 2.6 %; Hematocrit 40.7 % (37-53); Lymphocytes # 1.4 10^3/uL (0.8-4.8); Lymphocytes % 16.8 %; Mean Corpuscular HGB Conc 32.7 g/dL (30-55); Mean Corpuscular Hemoglobin 27.6 pg (27-33); Mean Corpuscular Volume 84.4 fl (82-101); Mean Platelet Volume 9.7 fL (7.4-10.4); Monocytes # 0.7 10^3/uL (0.2-0.9); Monocytes % 8.8 %; Neutrophils # 5.91 10^3/uL (1.8-7.7); Nucleated Red Blood Cells % 0 %; Platelet Count 266 10^3/cmm (157-399); Red Blood Count 4.82 10^6/uL (3.85-5.65); Red Cell Distribution Width 13.6 % (12.1-15.1); White Blood Count 8.32 10^3/uL (3.29-11.43)
[2024-01-02 13:51] LABS: Erythrocyte Sedimentation Rate 2 mm/hr (0-10)
[2024-01-02 14:00] LABS: Alanine Aminotransferase 13 U/L (0-41); Albumin Level 4.6 g/dL (3.5-5.2); Alkaline Phosphatase 79 U/L (40-130); Aspartate Amino Transferase 17 U/L (0-40); Glomerular Filtration Rate 79.4 mL/min (90-130); Total Bilirubin 0.6 mg/dL (0.15-1.2); Total Protein 6.6 g/dL (6.6-8.7)
== END 2024-01-02 13:31 | disposition home or self-care (01) ==
LOC: LAB 13:31
PROVIDERS: Visit Provider Internal Medicine Rheumatology
DX: M05.79 Rheumatoid arthritis with rheumatoid factor of multiple sites without organ or systems involvement (principal); Z79.899 Other long term (current) drug therapy
CPT/HCPCS: 36415; 80076; 82565; 85025; 85651; 86140

== ENCOUNTER 2024-04-30 15:25 | Observation (INO) | payer SELFPAY ==
[2024-04-30] VITALS (10 sets, daily range): BP systolic 140–179; BP diastolic 89–110; PULSE 52–76; RESP 12–18; TEMP 36.6–36.8; O2SAT 96–100; BMI 27.1
--- NOTE | 2024-04-30 15:26 | XR_ITS ---
WS: [id number] PORTABLE CHEST HISTORY: cp COMPARISON: 09/08/2023 Lungs are clear and well expanded. No pleural effusion or pneumothorax. Cardiac size: Normal. Mediastinum/Aorta: Normal mediastinum. No osseous abnormality seen. XR/XR chest 1V portable [id number] IMPRESSION: Unremarkable portable chest.
--- NOTE | 2024-04-30 15:26 | ECG_ITS ---
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 Measurements Intervals [place] Rate: 75 P: 36 NE: 193 QRS: 24 QRSD: 109 T: 44 QT: 418 QTc: 469 Interpretive Statements SINUS RHYTHM INCOMPLETE RIGHT BUNDLE BRANCH BLOCK [90+ ms QRS DURATION, TERMINAL R IN V1/V2, 40+ ms S IN I/aVL/V4/V5/V6] Compared to ECG 01/27/2023 18:04:55 Incomplete right bundle-branch block now present Electronically Signed On 05-01-2024 13:18:53 PER DIEM NURSE by Arik Villalobos M.D. [email or web address]
[2024-04-30 16:05] LABS: Basophils % 0.4 %; Eosinophils # 0.1 10^3/uL (0.0-0.8); Hematocrit 40.2 % (37-53); Lymphocytes # 2.2 10^3/uL (0.8-4.8); Lymphocytes % 40.3 %; Mean Corpuscular HGB Conc 32.1 g/dL (30-55); Mean Corpuscular Hemoglobin 27.4 pg (27-33); Mean Corpuscular Volume 85.4 fl (82-101); Monocytes # 0.6 10^3/uL (0.2-0.9); Monocytes % 10.2 %; Neutrophils # 2.58 10^3/uL (1.8-7.7); Neutrophils % 46.9 %; Nucleated Red Blood Cells % 0 %; Platelet Count 230 10^3/cmm (157-399); Red Blood Count 4.71 10^6/uL (3.85-5.65); Red Cell Distribution Width 13.4 % (12.1-15.1); White Blood Count 5.49 10^3/uL (3.29-11.43)
[2024-04-30 16:18] LABS: INR 1.32 (0.8-1.2)
[2024-04-30 16:30] LABS: Troponin(5th) Baseline < 6 ng/L (0-15)
[2024-04-30 16:31] LABS: Alanine Aminotransferase 13 U/L (0-41); Albumin Level 4.4 g/dL (3.5-5.2); Alkaline Phosphatase 84 U/L (40-130); Anion Gap 17.7 (5-19); Aspartate Amino Transferase 15 U/L (0-40); Blood Urea Nitrogen 10 mg/dL (6-20); Calcium 8.5 mg/dL (8.5-10.5); Carbon Dioxide 24 mmol/L (22-29); Chloride 102 mmol/L (98-107); Creatinine Clr Calc Pharmacy 104.7097; Glomerular Filtration Rate 79.4 mL/min (90-130); Glucose 100 mg/dL (65-115); Lipase 31 U/L (13-60); Osmolality Calculated 289 mOsm/kg (285-295); Potassium 3.7 mmol/L (3.5-5.1); Sodium 140 mmol/L (136-145); Total Bilirubin 0.3 mg/dL (0.15-1.2); Total Protein 6.4 g/dL (6.6-8.7)
--- NOTE | 2024-04-30 16:41 | ED_ITS ---
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 He states he had a difficult time catching his breath as well. States since his pain has improved but it gets worse with any exertion. He is a former smoker he states he has had no history of heart disease himself does have a strong family history. Denies any abdominal pain denies any vomiting or diarrhea. Associated symptoms: Reports dyspnea; Deny abdominal pain, fever(s), nausea or vomiting Related Data Previous Rx's Medication Instructions Recorded leflunomide 20 mg tablet 20 mg PO DAILY #90 tabs 01/27/24 prednisone 5 mg tablet 5 mg PO DAILY #90 tabs 01/27/24 upadacitinib 15 mg tablet,extended 15 mg PO DAILY #30 tabs 01/27/24 release 24 hr (Rinvoq) Allergies Allergy/AdvReac Type Severity Reaction Status Date / Time No Known Allergies Allergy Verified 04/30/24 15:34 Review of Systems 2 Const: Denies: fever(s), chills, body aches or change in appetite ENMT: Denies: throat pain or dental pain Card: Reports: chest pain Resp: Reports: dyspnea GI: Denies: abdominal pain, nausea, vomiting or diarrhea Musc: Denies: neck pain or back pain Skin/Breast: Denies: rash Neuro: Denies: headache(s) PFSH ED 2 PFSH: Medical History Skin rash Chronic steroid use Encounter for smoking cessation counseling Immunization counseling High risk medication use Abscess of finger of right hand Seropositive rheumatoid arthritis of multiple sites Joint pain Brain bleed Surgical History H/O hernia repair Family History Other Hypertension Denies family history of Rheumatoid arthritis Diabetes Lupus Cancer Social History Smoking and tobacco/nicotine status: former use of tobacco/nicotine Quit status (tobacco/nicotine): has quit using Year quit tobacco: Quit 09/2023 Alcohol intake: current Alcohol intake frequency: holidays/special occasions only Alcohol type: beer Substance/Drug Use: current Substance/Drug use frequency: Special occassions/opportunity only Physical Exam 2 Const: COMMON NORMALS: patient oriented x3 HENMT: COMMON NORMALS: normocephalic and atraumatic HEAD & SCALP: n ormocephalic and atraumatic Eye: COMMON NORMALS: Equal, round and reactive pupils present and EOMs intact bilaterally PUPIL: Yes Equal, round and reactive pupils present Neck/C-Spine: COMMON NORMALS: full ROM and supple Chest: COMMONS NORMALS: normal inspection of the chest and normal palpation of entire chest wall Resp: COMMON NORMALS: normal respiratory effort, No retractions, No use of accessory muscles and clear to auscultation bilaterally AUSCULTATION: clear to auscultation bilaterally Cardio: COMMON NORMALS: regular rate, regular rhythm and No murmurs present (Cardio) RATE: regular rate RHYTHM: regular rhythm GI: COMMON NORMALS: Normal to inspection, nondistended, normoactive bowel sounds present, Soft to palpation, non-tender and no masses PALPATION: Yes Soft to palpation Extremity: COMMON NORMALS: normal to inspection and full ROM Neuro: COMMON NORMALS: patient oriented x3, moves all extremities and no focal motor deficits Psych: COMMON NORMALS: mental status grossly normal, Normal thought process present and cooperative THOUGHT PROCESS: Normal thought process present Skin: COMMON NORMALS: no rashes or lesions noted and no wounds GENERAL SKIN EXAM: no rashes or lesions noted Course 2 Vital Signs: Vital signs: Vital Signs Temperature 98.2 F 04/30/24 15:34 Pulse Rate 63 04/30/24 17:03 Respiratory Rate 15 04/30/24 17:03 Blood Pressure 174/105 04/30/24 17:03 Pulse Oximetry 99 04/30/24 17:03 MDM - Chest Pain Medical Decision Making Patient presents for chest pain initial troponin EKG are normal. 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 Medical Records I reviewed the patient's medical records. Lab Data I reviewed the patient's lab results. 04/30/24 16:00 04/30/24 16:00 Radiology Impressions Chest X-Ray 04/30/24 15:26 IMPRESSION: Unremarkable portable chest. Laboratory Results WBC 5.49 10^3/uL (3.29-11.43) 04/30/24 16:00 RBC 4.71 10^6/uL (3.85-5.65) 04/30/24 16:00 Hgb 12.90 g/dL (11.27-16.99) 04/30/24 16:00 Hct 40.2 % (37-53) 04/30/24 16:00 MCV 85.4 fl (82-101) 04/30/24 16:00 MCH 27.4 pg (27-33) 04/30/24 16:00 MCHC 32.1 g/dL (30-55) 04/30/24 16:00 RDW 13.4 % (12.1-15.1) 04/30/24 16:00 Plt Count 230 10^3/cmm (157-399) 04/30/24 16:00 MPV 10.0 fL (7.4-10.4) 04/30/24 16:00 Neut % (Auto) 46.9 % 04/30/24 16:00 Lymph % (Auto) 40.3 % 04/30/24 16:00 Branch % (Auto) 10.2 % 04/30/24 16:00 Eos % (Auto) 2.0 % 04/30/24 16:00 Baso % (Auto) 0.4 % 04/30/24 16:00 Neut # (Auto) 2.58 10^3/uL (1.8-7.7) 04/30/24 16:00 Lymph # (Auto) 2.2 10^3/uL (0.8-4.8) 04/30/24 16:00 Branch # (Auto) 0.6 10^3/uL (0.2-0.9) 04/30/24 16:00 Eos # (Auto) 0.1 10^3/uL (0.0-0.8) 04/30/24 16:00 Baso # (Auto) 0.0 10^3/uL (0.0-0.1) 04/30/24 16:00 Nucleated RBC % (auto) 0 % 04/30/24 16:00 Nucleated RBCs # 0.0 /100WBC 04/30/24 16:00 PT 17.20 SECONDS (12.1-14.9) H 04/30/24 16:00 INR 1.32 (0.8-1.2) H 04/30/24 16:00 D-Dimer 0.80 ug/mLFEU (0-0.59) H 04/30/24 16:00 Sodium 140 mmol/L (136-145) 04/30/24 16:00 Potassium 3.7 mmol/L (3.5-5.1) 04/30/24 16:00 Chloride 102 mmol/L (98-107) 04/30/24 16:00 Carbon Dioxide 24 mmol/L (22-29) 04/30/24 16:00 Anion Gap 17.7 (5-19) 04/30/24 16:00 BUN 10 mg/dL (6-20) 04/30/24 16:00 Creatinine 1.0 mg/dL (0.7-1.2) 04/30/24 16:00 GFR Calculation 79.4 mL/min (90-130) L 04/30/24 16:00 Glucose 100 mg/dL (65-115) 04/30/24 16:00 Calculated Osmolality 289 mOsm/kg (285-295) 04/30/24 16:00 Calcium 8.5 mg/dL (8.5-10.5) 04/30/24 16:00 Total Bilirubin 0.3 mg/dL (0.15-1.2) 04/30/24 16:00 AST 15 U/L (0-40) 04/30/24 16:00 ALT 13 U/L (0-41) 04/30/24 16:00 Alkaline Phosphatase 84 U/L (40-130) 04/30/24 16:00 Troponin T Baseline < 6 ng/L (0-15) 04/30/24 16:00 Total Protein 6.4 g/dL (6.6-8.7) L 04/30/24 16:00 Albumin 4.4 g/dL (3.5-5.2) 04/30/24 16:00 Globulin 2.0 g/dL (1.3-4.6) 04/30/24 16:00 Lipase 31 U/L (13-60) 04/30/24 16:00 All radiology interpretation(s) finalized by discharge EKG Data EKG 1: I personally reviewed and interpreted this EKG as follows: EKG interpretation date: 04/30/24 EKG interpretation time: 16:44 Interpretation: sinus aashish hr [address] or t wave abnormalities qrs 104 qtc 421 Discharge Plan Discharge Patient Disposition: Admitted As Inpatient Clinical Impression: Chest pain Condition: Stable Prescriptions: No Action leflunomide 20 mg tablet 20 mg PO DAILY Qty: 90 1RF prednisone 5 mg tablet 5 mg PO DAILY Qty: 90 1RF Rinvoq 15 mg tablet extended release 24 hr 15 mg PO DAILY Qty: 30 5RF Coding Level of Care Code ED Electronics Hardware Design Engineer for Keisha Blackburn
[2024-04-30] MEDS: nitroglycerin 0.4 mg sublingual Tablet SUBLINGUAL (17:02)
[2024-04-30] MEDS: aspirin 81 mg Chew Tablet 324 MG PO (17:02)
--- NOTE | 2024-04-30 17:12 | CTR_ITS ---
PROCEDURE INFORMATION: Exam: CTA Chest With Contrast Exam date and time: 04/30/2024 5:28 PM Age: 48 years old Clinical indication: Shortness of breath; Additional info: SOB TECHNIQUE: Imaging protocol: Computed tomographic angiography of the chest with contrast. Exam focused on the arteries. 3D rendering (Not supervised by radiologist): MIP and/or 3D reconstructed images were created by the technologist. Radiation optimization: All CT scans at this facility use at least one of these dose optimization techniques: automated exposure control; mA and/or kV adjustment per patient size (includes targeted exams where dose is matched to clinical indication); or iterative reconstruction. Contrast material: OMNIPAQUE 350; Contrast volume: 79 ml; Contrast route: INTRAVENOUS (IV); COMPARISON: CR XR chest 1V portable [id number] 04/30/2024 3:50 PM RADIATION DOSE METRICS: Total DLP (mGy-cm): 388.51 FINDINGS: Pulmonary arteries: No evidence of pulmonary embolism. Aorta: The aorta is normal in caliber. No aneurysm. The aorta demonstrates mild atherosclerotic calcification. Thyroid: The visualized thyroid gland is unremarkable. Thymus: Nonspecific prominence of the thymic tissue. Trachea: The central airways are patent. Lungs: No focal consolidation. Small punctate granuloma in the periphery of the posterior right upper lobe. Scattered intra fissural lymph nodes along the minor fissure. Pleural spaces: No significant pleural effusion. No pneumothorax. Heart: The heart is normal in size. No pericardial effusion. Lymph nodes: No enlarged lymph nodes by size criteria. Bones/joints: The spine demonstrates mild degenerative changes at multiple levels. The spine demonstrates mild degenerative changes at multiple levels. Soft tissues: Bilateral gynecomastia. Nonspecific nodular area of inflammation along the midline left anterior chest wall, possibly an inflamed epidermal inclusion cyst. Other findings: Nonobstructive 3 mm stone within the visualized left kidney. CT/CT angio chest PE protcl [id number] IMPRESSION: 1. No evidence of pulmonary embolism. 2. No acute findings. 3. Nonspecific nodular area of inflammation along the midline left anterior chest wall, possibly an inflamed epidermal inclusion cyst. Correlate with physical exam. 4. Nonobstructive 3 mm stone within the visualized left kidney.
--- NOTE | 2024-04-30 17:26 | ECG_ITS ---
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 Measurements Intervals [place] Rate: 54 P: 50 NM: 195 QRS: 47 QRSD: 104 T: 42 QT: 435 QTc: 414 Interpretive Statements SINUS BRADYCARDIA Compared to ECG 04/30/2024 15:29:14 Sinus rhythm no longer present Incomplete right bundle-branch block no longer present Electronically Signed On 05-01-2024 13:31:50 STONE HAND by Arik Villalobos M.D. [email or web address]
[2024-04-30] MEDS: iohexol 350 mg/mL 500 mL Btl (per mL) IV (17:31)
--- NOTE | 2024-04-30 17:50 | P.HP_ITS ---
Providers/Chief Complaint 2 Chief Complaint: chest pain/SOB History of Present Illness Jackson Lea is a 48 year old male with a past medical history significant for seropositive rheumatoid arthritis, chronic steroid use, tobacco use disorder in remission, and brain bleed who presents emergency department with chest pains. Patient reports he was in his usual state of health until this morning when he was at work and developed chest pains. He describes the pain as a right-sided chest pressure with radiation up towards the right shoulder. He endorses associated shortness of breath with episode. He reports exertion worsens pain. Rest improves. He denies known history of heart disease. He states he had a stress test about 16 years ago that was reportedly normal. States his grandfather from myocardial infarction and began having heart trouble at his age. Reports his mother also has heart disease and is required stents. He denies any recent ischemic workup. In the emergency department, labs were notable for elevated blood pressure. Labs are largely unremarkable. Plain chest x-ray unremarkable. CTA chest pending. EKG negative for acute ischemic changes. Review of Systems 2 Narrative: A complete review of systems was obtained and is negative except as stated in HPI. Medications/Allergies Home Medications Medication Instructions Recorded Confirmed Last Taken Type leflunomide 20 mg tablet 20 mg PO DAILY #90 tabs 01/27/24 01/27/24 Unknown Rx prednisone 5 mg tablet 5 mg PO DAILY #90 tabs 01/27/24 01/27/24 Unknown Rx upadacitinib 15 mg tablet,extended 15 mg PO DAILY #30 tabs 01/27/24 01/27/24 Unknown Rx release 24 hr (Rinvoq) Allergies Allergy/AdvReac Type Severity Reaction Status Date / Time No Known Allergies Allergy Verified 04/30/24 15:34 PFSH Acute 2 PFSH: Medical History (Updated 04/30/24 @ 18:06 by Vern Ware MD) Impacted cerumen of left ear Hearing loss Otalgia of left ear Skin rash Chronic steroid use Encounter for smoking cessation counseling Immunization counseling High risk medication use Abscess of finger of right hand Seropositive rheumatoid arthritis of multiple sites Joint pain Brain bleed Surgical History H/O hernia repair Family History Other Hypertension Denies family history of Rheumatoid arthritis Diabetes Lupus Cancer Social History Smoking and tobacco/nicotine status: former use of tobacco/nicotine Quit status (tobacco/nicotine): has quit using Year quit tobacco: Quit 09/2023 Alcohol intake: current Alcohol intake frequency: holidays/special occasions only Alcohol type: beer Substance/Drug Use: current Substance/Drug use frequency: Special occassions/opportunity only Vitals/I&O/Wt Last Vital Signs Temp 98.2 F 04/30/24 15:34 Pulse 63 04/30/24 17:03 Resp 15 04/30/24 17:03 BP 174/105 04/30/24 17:03 Pulse Ox 99 04/30/24 17:03 04/30/24 04/30/24 04/30/24 06:59 14:59 22:59 Intake Total 0 / 0 Balance 0 / 0 Weight last 48 hrs Weight 90.718 kg Physical Exam 2 Narrative: General: Patient is awake and alert. Pleasant. Conversational. Head: Normocephalic. Atraumatic. EOM intact. Neck: No JVD. Cardiovascular: RRR. No gallops. No murmurs. Lungs: Clear to auscultation, no use of accessory muscles, no crackles or wheezes. Skin: No jaundice. No rashes. Abdomen: Normal bowel sounds, abdomen soft and nontender. Extremities: No cyanosis or clubbing. Musculoskeletal: No swollen or erythematous joints. Neurological: Moves all 4 extremities. No myoclonus. Data 04/30/24 16:00 04/30/24 16:00 A&P Assessment and plan (1) Chest pain: Multiple risk factors for coronary disease including rheumatoid arthritis, elevated blood pressures, family history, history of tobacco use, steroid use Continues telemetry monitoring Trend troponins Check A1c and lipids for restratification Complete echocardiogram Cardiology has been consulted, follow-up recommendations (2) Seropositive rheumatoid arthritis of multiple sites: Continue home medications (3) Chronic steroid use: Continue home prednisone Plan DVT prophylaxis: Lovenox Attestations 2 Medical Necessity Statement*: Patient presents with chest pain concerning for possible unstable angina with multiple risk factors for coronary disease with expected hospitalization not to cross 2 midnights for serial troponin, telemetry monitoring, echo, and cardiology evaluation. Coding Level of Care Code Acute Code for Chg Fwd Diagnoses Chest pain R07.9 Seropositive rheumatoid arthritis of multiple sites M05.79 Chronic steroid use
--- NOTE | 2024-04-30 17:51 | ECG_ITS ---
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 Measurements Intervals [place] Rate: 48 P: 55 NC: 196 QRS: 53 QRSD: 114 T: 52 QT: 466 QTc: 418 Interpretive Statements SINUS BRADYCARDIA MODERATE INTRAVENTRICULAR CONDUCTION DELAY [110+ ms QRS DURATION] Compared to ECG 04/30/2024 16:44:10 Intraventricular conduction delay now present Electronically Signed On 05-01-2024 13:29:07 FORM SETTER HELPER by Arik Villalobos M.D. [id number]
[2024-04-30 18:33] LABS: Amphetamines Screen Urine Negative (Negative); Barbiturates Screen Urine Negative (Negative); Benzodiazepines Screen Urine Negative (Negative); Cocaine Screen Urine Negative (Negative); Opiate Screen Urine Negative (Negative); PCP Screen Urine Negative (Negative); THC Screen Urine Negative (Negative)
[2024-04-30 18:33] LABS: Estmated Average Glucose 97
[2024-04-30 18:34] LABS: Troponin 5 2HR Delta 0.00001 ABS# (0-10)
[2024-04-30 18:35] LABS: Chol HDL Ratio 3.49 mg/dL (1.0-5.00); Cholesterol 262 mg/dL (0-200); HDL Cholesterol 75 mg/dL (60-100); LDL Cholesterol Calculated 168 mg/dL (50-129); LDL HDL Ratio 2.24 RATIO (0.00-3.22); Triglycerides 95 mg/dL (0-150)
--- NOTE | 2024-04-30 21:44 | PC.NURSE ---
Report called to Shelly in [facility]. All questions and concerns were addressed at time of report.
[2024-04-30] MEDS: enoxaparin 40 mg/0.4 mL Syringe SUBCUT (22:31)
[2024-04-30 23:24] LABS: Troponin 5 6HR 6.18 ng/L (0-15); Troponin 5 6HR Delta 0.18001 ng/L (0-12)
[2024-05-01 03:50] VITALS: BP 114/83; PULSE 61; RESP 12; TEMP 36.4; O2SAT 98
[2024-05-01 05:15] VITALS: PULSE 60
--- NOTE | 2024-05-01 07:44 | P.CONIM_ITS ---
Providers/Reason For Consult 2 Consulting Physician/Specialty*: Arik Villalobos MD/ Cardiology Reason for Consult*: Worsening angina Requesting Physician: Dr Gaitan Attending Physician: eVrn Ware MD History of Present Illness History of Present Illness Jackson Lea is a 48 year old male with past medical history of rheumatoid arthritis, family history of CAD who presented to hospital with on and off shortness of breath on exertion and chest discomfort. His he was found to have elevated blood pressure in 170s. He says once blood pressure has improved, no more chest discomfort. No uptrend of troponins. EKG shows sinus bradycardia with no ST-T wave changes. Review of Systems 2 Narrative: A complete review of systems was obtained and is negative except as stated in HPI. Card: Denies: chest pain Medications/Allergies Home Medications Medication Instructions Recorded Confirmed Last Taken Type leflunomide 20 mg tablet 20 mg PO DAILY #90 tabs 01/27/24 04/30/24 Unknown Rx prednisone 5 mg tablet 5 mg PO DAILY #90 tabs 01/27/24 04/30/24 Unknown Rx upadacitinib 15 mg tablet,extended 15 mg PO DAILY #30 tabs 01/27/24 04/30/24 Unknown Rx release 24 hr (Rinvoq) cholecalciferol (vitamin D3) 50 50 mcg PO DAILY 04/30/24 04/30/24 Unknown History mcg (2,000 unit) tablet (Vitamin D3) Allergies Allergy/AdvReac Type Severity Reaction Status Date / Time No Known Allergies Allergy Verified 04/30/24 15:34 Current Medications Generic Name Dose Route Start Last Admin Trade Name Freq PRN Reason Stop Dose Admin Enoxaparin Sodium 40 mg 04/30/24 22:08 04/30/24 22:31 Enoxaparin 40 Mg/0.4 Ml Syringe SUBCUT 40 mg Q24H BRANDON Administration PFSH Acute 2 PFSH: Medical History Impacted cerumen of left ear Hearing loss Otalgia of left ear Skin rash Chronic steroid use Encounter for smoking cessation counseling Immunization counseling High risk medication use Abscess of finger of right hand Seropositive rheumatoid arthritis of multiple sites Joint pain Brain bleed Surgical History H/O hernia repair Family History Other Hypertension Denies family history of Rheumatoid arthritis Diabetes Lupus Cancer Social History Smoking and tobacco/nicotine status: former use of tobacco/nicotine Quit status (tobacco/nicotine): has quit using Year quit tobacco: Quit 09/2023 Alcohol intake: current Alcohol intake frequency: holidays/special occasions only Alcohol type: beer Substance/Drug Use: current Substance/Drug use frequency: Special occassions/opportunity only Vitals/I&O/Wt Last Vital Signs Temp 97.5 F L 05/01/24 03:50 Pulse 60 05/01/24 05:15 Resp 12 05/01/24 03:50 BP 114/83 05/01/24 03:50 Pulse Ox 98 05/01/24 03:50 O2 Del Method Room Air 05/01/24 03:50 04/30/24 05/01/24 05/01/24 22:59 06:59 14:59 Intake Total 0 / 0 Balance 0 / 0 Weight last 48 hrs Weight 202 lb 3.2 oz Weight 200 lb 4.8 oz Weight 200 lb Physical Exam 2 Narrative: GENERAL: Patient is alert, awake and oriented x3. [] NECK: No jugular vein distension. [] HEENT: No cyanosis. No icterus. No pallor. [] HEART: Regular S1 and S2. No murmur, rub or gallop. [] LUNGS: Clear to auscultate bilaterally. [] CENTRAL NERVOUS SYSTEM: Grossly nonfocal. [] EXTREMITIES: Lower extremities with no edema Data 04/30/24 16:00 04/30/24 16:00 A&P Assessment and plan (1) Chest pain: (2) Seropositive rheumatoid arthritis of multiple sites: Plan Patient has risk factors for coronary artery disease. However no evidence of ACS. He is no longer having chest pain once blood pressure is controlled. Stress test will be appropriate to rule out ischemia. As this is a weekend and stress test cannot be done till Friday, patient does not want to wait inpatient and wants to have it done as outpatient. Risks and benefits discussed. ER warning signs and symptoms discussed Start aspirin 81 mg daily. Outpatient cardiology follow-up. Patient will bring log of blood pressure readings with him. Can start low-dose amlodipine. Has baseline bradycardia Thank you for involving us care of this patient. Please call with questions Consult Attestations 2 Medical Necessity Statement: Care not expected to cross 2 midnights. Coding Level of Care Code Acute Code for Chg Fwd Diagnoses Chest pain R07.9 Seropositive rheumatoid arthritis of multiple sites M05.79
--- NOTE | 2024-05-01 07:46 | P.DS_ITS ---
Discharge Providers Date of Admission: 04/30/24 17:43 Date of Discharge: May 01, 2024 Attending Provider at Admission: Vern Ware MD Attending Provider at Discharge: Vern Ware MD Consults: Cardiology Diagnoses at Discharge Discharge Diagnosis (1) Chest pain: Status: Acute (2) Seropositive rheumatoid arthritis of multiple sites: Status: Acute (3) Chronic steroid use: Status: Acute Reason for Visit Reason for Visit: chest pain/SOB Hospital Course Hospital Course Jackson Lea is a 48 year old male with a past medical history significant for seropositive rheumatoid arthritis, chronic steroid use, tobacco use disorder in remission, and brain bleed who presents emergency department with chest pains, found to have elevated blood pressures. Acute coronary syndrome was considered but ruled out with serial troponins, EKG and telemetry. Due to multiple coronary disease risk factors, cardiology was consulted and evaluated. Presentation most consistent with blood pressure induced chest pains. Recommended outpatient cardiac stress testing as well to evaluate for underlying coronary disease. Patient symptomatology completely resolved. Patient discharged home in stable condition. He will continue monitoring his blood pressure at home. He started on MANOHAR inhibitor at discharge, dose may need titrated over time. Physical Exam Narrative: General: Patient is awake and alert. Head: Normocephalic. Atraumatic. EOM intact. Neck: No JVD. Cardiovascular: RRR. No gallops. No murmurs. No peripheral edema. Lungs: Clear to auscultation, no use of accessory muscles, no crackles or wheezes. Skin: No jaundice. No rashes. Abdomen: Normal bowel sounds, abdomen soft and nontender. Genito Urinary: Genital exam not performed since complaints not related. Rectal: Rectal exam not performed since no symptoms indicated blood loss. Extremities: No cyanosis or clubbing. Musculoskeletal: No swollen or erythematous joints. Neurological: Moves all 4 extremities. No myoclonus. Discharge Data Studies Completed and Pending Completed Studies During Hospitalization Category Date Time Status CTA chest [CT angio chest PE protcl [id number]] Stat Cat Scan 04/30/24 17:12 Completed XR chest 1V portable [id number] Stat Exams 04/30/24 15:26 Completed Pending at discharge Category Date Time Status Urinalysis Routine Lab 04/30/24 22:08 Received CV. echo complete* [id number] Stat Ultrasound 04/30/24 18:11 Ordered Radiology Impressions Chest X-Ray 04/30/24 15:26 IMPRESSION: Unremarkable portable chest. Chest CTA 04/30/24 17:12 IMPRESSION: 1. No evidence of pulmonary embolism. 2. No acute findings. 3. Nonspecific nodular area of inflammation along the midline left anterior chest wall, possibly an inflamed epidermal inclusion cyst. Correlate with physical exam. 4. Nonobstructive 3 mm stone within the visualized left kidney. Laboratory Results WBC 5.49 10^3/uL (3.29-11.43) 04/30/24 16:00 RBC 4.71 10^6/uL (3.85-5.65) 04/30/24 16:00 Hgb 12.90 g/dL (11.27-16.99) 04/30/24 16:00 Hct 40.2 % (37-53) 04/30/24 16:00 MCV 85.4 fl (82-101) 04/30/24 16:00 MCH 27.4 pg (27-33) 04/30/24 16:00 MCHC 32.1 g/dL (30-55) 04/30/24 16:00 RDW 13.4 % (12.1-15.1) 04/30/24 16:00 Plt Count 230 10^3/cmm (157-399) 04/30/24 16:00 MPV 10.0 fL (7.4-10.4) 04/30/24 16:00 Neut % (Auto) 46.9 % 04/30/24 16:00 Lymph % (Auto) 40.3 % 04/30/24 16:00 Clay % (Auto) 10.2 % 04/30/24 16:00 Eos % (Auto) 2.0 % 04/30/24 16:00 Baso % (Auto) 0.4 % 04/30/24 16:00 Neut # (Auto) 2.58 10^3/uL (1.8-7.7) 04/30/24 16:00 Lymph # (Auto) 2.2 10^3/uL (0.8-4.8) 04/30/24 16:00 Clay # (Auto) 0.6 10^3/uL (0.2-0.9) 04/30/24 16:00 Eos # (Auto) 0.1 10^3/uL (0.0-0.8) 04/30/24 16:00 Baso # (Auto) 0.0 10^3/uL (0.0-0.1) 04/30/24 16:00 Nucleated RBC % (auto) 0 % 04/30/24 16:00 Nucleated RBCs # 0.0 /100WBC 04/30/24 16:00 PT 17.20 SECONDS (12.1-14.9) H 04/30/24 16:00 INR 1.32 (0.8-1.2) H 04/30/24 16:00 D-Dimer 0.80 ug/mLFEU (0-0.59) H 04/30/24 16:00 Sodium 140 mmol/L (136-145) 04/30/24 16:00 Potassium 3.7 mmol/L (3.5-5.1) 04/30/24 16:00 Chloride 102 mmol/L (98-107) 04/30/24 16:00 Carbon Dioxide 24 mmol/L (22-29) 04/30/24 16:00 Anion Gap 17.7 (5-19) 04/30/24 16:00 BUN 10 mg/dL (6-20) 04/30/24 16:00 Creatinine 1.0 mg/dL (0.7-1.2) 04/30/24 16:00 GFR Calculation 79.4 mL/min (90-130) L 04/30/24 16:00 Glucose 100 mg/dL (65-115) 04/30/24 16:00 Estimat Average Glucose 97 04/30/24 16:00 Hemoglobin A1c 5.0 % (4.0-6.0) 04/30/24 16:00 Calculated Osmolality 289 mOsm/kg (285-295) 04/30/24 16:00 Calcium 8.5 mg/dL (8.5-10.5) 04/30/24 16:00 Total Bilirubin 0.3 mg/dL (0.15-1.2) 04/30/24 16:00 AST 15 U/L (0-40) 04/30/24 16:00 ALT 13 U/L (0-41) 04/30/24 16:00 Alkaline Phosphatase 84 U/L (40-130) 04/30/24 16:00 Troponin T Baseline < 6 ng/L (0-15) 04/30/24 16:00 Troponin T 120 Minute 6.00 ng/L (0-15) 04/30/24 18:07 Delta Troponin T 0.28459 ABS# (0-10) 04/30/24 18:07 Troponin T Hi Sens 6Hr 6.18 ng/L (0-15) 04/30/24 22:40 Troponin T Hi Sens 6Hr Delta 0.70362 ng/L (0-12) 04/30/24 22:40 Total Protein 6.4 g/dL (6.6-8.7) L 04/30/24 16:00 Albumin 4.4 g/dL (3.5-5.2) 04/30/24 16:00 Globulin 2.0 g/dL (1.3-4.6) 04/30/24 16:00 Triglycerides 95 mg/dL (0-150) 04/30/24 16:00 Cholesterol 262 mg/dL (0-200) H 04/30/24 16:00 LDL Cholesterol, Calc 168 mg/dL (50-129) H 04/30/24 16:00 HDL Cholesterol 75 mg/dL (60-100) 04/30/24 16:00 LDL/HDL Ratio 2.24 RATIO (0.00-3.22) 04/30/24 16:00 Cholesterol/HDL Ratio 3.49 mg/dL (1.0-5.00) 04/30/24 16:00 Lipase 31 U/L (13-60) 04/30/24 16:00 Amorphous Sediment Not Reportable 05/01/24 07:05 Urine Opiates Screen Negative ng/mL (Negative) 04/30/24 18:16 Ur Barbiturates Screen Negative ng/mL (Negative) 04/30/24 18:16 Ur Phencyclidine Scrn Negative ng/mL (Negative) 04/30/24 18:16 Ur Amphetamines Screen Negative ng/mL (Negative) 04/30/24 18:16 U Benzodiazepines Scrn Negative ng/mL (Negative) 04/30/24 18:16 Urine Cocaine Screen Negative ng/mL (Negative) 04/30/24 18:16 U Marijuana (THC) Screen Negative ng/mL (Negative) 04/30/24 18:16 Vitals Last Vital Signs Temp 97.5 F L 05/01/24 03:50 Pulse 60 05/01/24 05:15 Resp 12 05/01/24 03:50 BP 114/83 05/01/24 03:50 Pulse Ox 98 05/01/24 03:50 O2 Del Method Room Air 05/01/24 03:50 Discharge Plan Discharge Patient Disposition: Home Condition: Stable Prescriptions: New lisinopril 2.5 mg tablet 2.5 mg PO DAILY Qty: 30 11RF Continued leflunomide 20 mg tablet 20 mg PO DAILY Qty: 90 1RF prednisone 5 mg tablet 5 mg PO DAILY Qty: 90 1RF Rinvoq 15 mg tablet extended release 24 hr 15 mg PO DAILY Qty: 30 5RF cholecalciferol (vitamin D3) [Vitamin D3] 50 mcg (2,000 unit) Tablet 50 mcg PO DAILY Discharge Orders: Discharge Order (Routine); Ordered 05/01/24 Ordered By: Vern Ware Discharge Diet: Advance as tolerated and Usual diet Discharge Activity: Resume usual activity and Increase activity as tolerated Patient Instructions: Rheumatoid Arthritis, Lisinopril (By mouth), Chest Pain (DC), Opioid Safety Activity Restrictions/Additional Instructions: 1. Take medications as prescribed. 2. Keep blood pressure log and bring to PCP appointment. 3. Patient undergo outpatient cardiac stress testing. 4. Return precautions discussed at length. Patient to return to the ER for any recurrence of chest pains or similar symptoms. Discharge Attestations Time Spent in Discharge Care*: greater than 30 min Quality Metrics Clinical Quality Measures [ No reported AMI, CVA or VTE this stay] Coding Level of Care Code Acute Code for [facility] Fwd Diagnoses Chest pain R07.9 Seropositive rheumatoid arthritis of multiple sites M05.79 Chronic steroid use
[2024-05-01 07:48] VITALS: BP 161/101; PULSE 61; RESP 12; TEMP 36.8; O2SAT 100
[2024-05-01 07:53] LABS: Bilirubin Urine Negative (Negative); Blood Urine Negative (Negative); Glucose Urine UA Negative (Normal); Ketones Urine Negative (Negative); Leukocyte Esterase Urine Negative (Negative); Nitrate Urine Negative (Negative); Protein Urine Negative (Negative); Specific Gravity, Urine 1.019 (1.005-1.030); Urine Appearance Clear (CLEAR); Urine Color Yellow (Yellow); Urobilinogen Urine 0.2 mg/dL (Negative)
[2024-05-01 07:56] LABS: Add Urine Microscopic? YES; Bacteria Urine None Seen /hpf; Hyaline Casts Urine 0-4 /lpf; RBC Urine 0-2 /hpf (0-2); Squamous Epithelial Cell Urine 0-5 /hpf (0-5); WBC Urine 0-5 /hpf (0-5)
[2024-05-01] MEDS: predniSONE 5 mg Tablet PO (09:05)
[2024-05-01] MEDS: aspirin 81 mg EC Tablet PO (09:05)
--- NOTE | 2024-05-01 18:11 | USCV_ITS ---
Jackson Lea Age: 48 Gender: M : 1975 Exam Date: 05/01/2024 08:15 Ordering Phys: Vern Ware MD Technologist: Oj Salazar [place] [facility] [place]: chest pain BP: 161 / 101 HR: 56 Rhythm: Sinus Technical Quality: Adequate MEASUREMENTS (Male / Female) Normal Values 2D ECHO LV Diastolic Diameter PLAX 5.2 cm 4.2 - 5.9 / 3.9 - 5.3 cm IVS Diastolic Thickness 1.3 cm 0.6 - 1.0 / 0.6 - 0.9 cm IVS Systolic Thickness 1.6 cm LVPW Diastolic Thickness 1.5 cm 0.6 - 1.0 / 0.6 - 0.9 cm LVPW Systolic Thickness 1.7 cm LVOT Diameter 2.1 cm LV Ejection Fraction 2D Teich 55.0 % LV Ejection Fraction MOD 4C 58.8 % LV Ejection Fraction MOD 2C 66.8 % LV Ejection Fraction 2C AL 66.2 % LA Diameter 3.7 cm RA Systolic Volume 4C AL 50.6 ml RA Systolic Volume 4C MOD 50.4 ml LA Sys Volume AL 51.3 cm cubed LA Sys Volume Index AL 23.6 cm cubed/m squared Aorta at Sinotubular Diameter 2.5 cm IVC Diameter 1.9 cm M-MODE LA Ao Ratio MM 1.6 AV Cusp Separation MM 2.0 cm DOPPLER AV Peak Velocity 118.0 cm/s LVOT Peak Velocity 75.0 cm/s AV Area Cont Eq vti 2.5 cm squared AV Area Cont Eq pk 2.2 cm squared MV Peak Velocity 72.0 cm/s MV Area PHT 3.7 cm squared Mitral E to A Ratio 1.7 TV Peak Velocity 243.0 cm/s TR Peak Velocity 315.0 cm/s TR Peak Gradient 39.7 mmHg TR Mean Velocity 273.0 cm/s TR Mean Gradient 30.5 mmHg TR Velocity Time Integral 101.0 cm PV Peak Velocity 134.0 cm/s RV Ejection Time 0.3 s FINDINGS Left Ventricle LV systolic function is nromal wtih EF of 50-55%. No regional wall motion abnormalities. Right Ventricle Normal in size and function Right Atrium Normal in size Left Atrium Normal in size Mitral Valve Structurally normal mitral valve. Trace mitral regurgitation. Aortic Valve Structurally normal mitral valve. No significant stenosis or regurgitation. Tricuspid Valve Insufficient TR jet to calculate RVSP Pulmonic Valve Not well visualized Pericardium Normal Aorta Normal in size IVC Appears to be normal CONCLUSIONS LV systolic function is normal with EF of 50-55%. Trace mitral regurgitation No comparison studies are available. Arik Villalobos MD (Electronically Signed) Final Date: 01 May 2024 10:28 S
== END 2024-05-01 09:30 | disposition home or self-care (01) ==
LOC: ER 17:57 → CSU 20:30
PROVIDERS: Admitting Provider Internal Medicine; Emergency Provider Emergency Medicine; Visit Provider Internal Medicine
DX: R07.9 Chest pain, unspecified (principal); M05.89 Other rheumatoid arthritis with rheumatoid factor of multiple sites; R06.02 Shortness of breath; R03.0 Elevated blood-pressure reading, without diagnosis of hypertension; F17.201 Nicotine dependence, unspecified, in remission; Z79.52 Long term (current) use of systemic steroids; Z79.899 Other long term (current) drug therapy; H91.90 Unspecified hearing loss, unspecified ear; Z82.49 Family history of ischemic heart disease and other diseases of the circulatory system
CPT/HCPCS: 36415; 71045; 71275; 80053; 80061; 80306; 81001; 83036; 83690; 84484; 85025; 85378; 85610; 93005; 93306; 96372; 99285; G0378; J1650; J7512

== ENCOUNTER 2024-05-07 11:20 | Outpatient (CLI) | payer SELFPAY ==
[2024-05-07 11:43] LABS: Basophils % 0.4 %; Eosinophils % 0.4 %; Hematocrit 39.5 % (37-53); Lymphocytes # 1.4 10^3/uL (0.8-4.8); Lymphocytes % 29.1 %; Mean Corpuscular HGB Conc 31.6 g/dL (30-55); Mean Corpuscular Hemoglobin 26.9 pg (27-33); Mean Corpuscular Volume 84.9 fl (82-101); Mean Platelet Volume 10.2 fL (7.4-10.4); Monocytes # 0.3 10^3/uL (0.2-0.9); Monocytes % 6.8 %; Neutrophils # 3.06 10^3/uL (1.8-7.7); Neutrophils % 63.1 %; Nucleated Red Blood Cells % 0 %; Platelet Count 255 10^3/cmm (157-399); Red Blood Count 4.65 10^6/uL (3.85-5.65); Red Cell Distribution Width 13.7 % (12.1-15.1); White Blood Count 4.85 10^3/uL (3.29-11.43)
[2024-05-07 12:01] LABS: Erythrocyte Sedimentation Rate 4 mm/hr (0-10)
[2024-05-07 12:18] LABS: Alanine Aminotransferase 20 U/L (0-41); Albumin Level 4.5 g/dL (3.5-5.2); Alkaline Phosphatase 84 U/L (40-130); Aspartate Amino Transferase 24 U/L (0-40); Globulin 2.3 g/dL (1.3-4.6); Glomerular Filtration Rate 79.4 mL/min (90-130); Total Bilirubin 0.3 mg/dL (0.15-1.2); Total Protein 6.8 g/dL (6.6-8.7)
== END 2024-05-07 11:21 | disposition home or self-care (01) ==
LOC: LAB 11:20
PROVIDERS: Visit Provider Internal Medicine Rheumatology
DX: M05.79 Rheumatoid arthritis with rheumatoid factor of multiple sites without organ or systems involvement (principal); Z79.899 Other long term (current) drug therapy
CPT/HCPCS: 36415; 80076; 82565; 85025; 85651; 86140

== ENCOUNTER → 2024-09-21 16:23 | Outpatient (BNVA) | payer SELFPAY | PROVIDERS: PCP Family Medicine; Visit Provider Internal Medicine Rheumatology | DX: Z79.899 Other long term (current) drug therapy (principal) | CPT/HCPCS: 80076; 82565; 85025; 85651; 86140; 86480; 86704; 86803; 87340 ==

== ENCOUNTER → 2025-03-14 15:01 | Outpatient (BNVA) | payer SELFPAY | PROVIDERS: PCP Family Medicine; Visit Provider Internal Medicine Rheumatology | DX: Z79.899 Other long term (current) drug therapy (principal) | CPT/HCPCS: 36415; 80076; 82565; 85025; 85651; 86140 ==